=== PATIENT | male | born 1945 | race Caucasian/White ===

== ENCOUNTER → 2016-10-03 | Outpatient (CLI) | payer OTHER ==
[~2016-10-03] MED LIST: ACET-1047 PO; ASPEC81 PO; HEPA1INJ22 IV; HYDR-5688 PO; LEVO100T7 PO; LPT40 PO; LTHSR/300 PO; MRPIS4 IV; MULT-506 PO; NTRSLP4 SL; PLV75 PO; ULT50X PO; ZFRI4 IV; [UNRECOGNIZED DRUG - CODE] IV
[2016-10-03 12:14] LABS: BASO % 0.3 %; BASO ABS # 0.03 K/uL (0-0.2); COMPLETE YES; EOS % 1.8 %; HEMATOCRIT 44.9 % (42-52); IG% 0.1 %; LYMPH ABS # 1.58 K/uL (1.2-3.4); MEAN CELL VOLUME 101.1 fL (80-100); MEAN CORPUSCULAR HEMOGLOBIN 33.1 pg (25-34); MEAN CORPUSCULAR HGB CONC 32.7 g/dl (32-36); MEAN PLATELET VOLUME 10.8 fL (7.4-10.4); MONO % 12.6 %; NEUT % 67.2 %; PLATELET COUNT 284 K/uL (130-400); RED BLOOD COUNT 4.44 M/uL (4.7-6.1)
[2016-10-03 12:39] LABS: BLOOD UREA NITROGEN 14 mg/dl (7-18); CREATININE 0.85 mg/dl (0.60-1.40)
== END | disposition home or self-care (01) ==
LOC: C.LABPVFM 10-02 14:36
PROVIDERS: ATTEND Psychiatry & Neurology Psychiatry
DX: F31.9 Bipolar disorder, unspecified (principal); F33.41 Major depressive disorder, recurrent, in partial remission

== ENCOUNTER 2016-12-12 17:05 | Inpatient (IN) | payer OTHER ==
[~2016-12-12] VITALS: Ht 172.7 cm; Wt 54.2 kg
[~2016-12-12 17:05] MED LIST changes: -ACET-1047 PO; -ASPEC81 PO; -HEPA1INJ22 IV; -HYDR-5688 PO; +HYDROCODONE/ACETAMOPHEN 5/325MG TAB PO PRN; -LEVO100T7 PO; -LPT40 PO; -LTHSR/300 PO; -MRPIS4 IV; -MULT-506 PO; +MoRPHine SULFATE 4 MG/ML 1 ML CARP\\VIAL IV PRN; -NTRSLP4 SL; -PLV75 PO; +TRAMADOL HCL 50 MG TAB PO PRN; -ULT50X PO; -ZFRI4 IV; -[UNRECOGNIZED DRUG - CODE] IV
--- NOTE | 2016-12-12 18:06 | EMERGENCY ROOM VISIT NOTE ---
History Report prepared by Angel: David Saba Under the Supervision of: Dr. Omar Valencia D.O. First contact with patient: 17:45 Chief Complaint: LEG PAIN,LEG INJURY Stated Complaint: BLOOD CLOT, LEFT FOOT- REFERRED History of Present Illness The patient is a 71 year old male who presents to the Emergency Room with complaints of constant left leg and foot pain occurring for the past couple of days. The patient states that he was at [facility], and they state that he has a possible blood clot in his left leg. He states that he did not have a Doppler done. He denies any numbness in his leg, fevers or chills. He states that he has a history of a stent in his left leg. The patient states that he is not on any blood thinners, and he does not have any heart history. The patient states that he quit smoking 7 years ago, and he does not drink. He additionally states that [place] was [place], so he was sitting on a plane and a car for a long time. The patient denies any history of A-fib. Source of History: patient Onset: a couple days ago Position: leg (left), foot (left) Timing: constant Associated Symptoms: No fevers, No chills Review of Systems See HPI for pertinent positives & negatives. A total of 10 systems reviewed and were otherwise negative. Past Medical & Surgical Medical Problems: (1) Pain of left lower extremity due to ischemia Surgical Problems: (1) History of intravascular stent placement Social History Smoking Status: Never Smoker Marital Status: Housing Status: lives with family Occupation Status: retired Current/Historical Medications Scheduled Levothyroxine Sodium (Levothyroxine Sodium), Unknown Dose PO DAILY [place] Carbonate ([place] Carbonate), 300 MG PO QAM [place] Carbonate ([place] Carbonate), 600 MG PO QPM Multivitamin (Multivitamin), 1 TAB PO DAILY Allergies Coded Allergies: No Known Allergies (Unverified , 12/12/16) Physical Exam Vital Signs Date Time Temp Pulse Resp B/P (MAP) Pulse Ox O2 Delivery O2 Flow Rate FiO2 12/12/16 22:50 72 24 12/12/16 22:37 160/77 12/12/16 22:37 65 16 160/77 97 Room Air 12/12/16 22:35 67 24 12/12/16 22:25 68 12/12/16 22:20 64 19 12/12/16 22:05 69 12/12/16 21:50 66 21 12/12/16 21:35 66 26 12/12/16 21:20 64 15 12/12/16 21:05 67 15 12/12/16 20:50 61 19 12/12/16 20:35 54 24 12/12/16 20:20 57 21 12/12/16 20:06 164/75 12/12/16 20:05 59 98 12/12/16 20:00 58 16 164/75 98 Room Air 12/12/16 18:26 59 12/12/16 18:23 153/85 12/12/16 17:10 36.9 70 18 182/76 97 Room Air Physical Exam GENERAL: Patient is awake, alert, and in no acute distress. Patient is resting comfortably and showing no signs of anxiety EYES: The conjunctivae are clear. The pupils are round and reactive. EARS, NOSE, MOUTH AND THROAT: The nose is without any evidence of any deformity. Mucous membranes are moist tongue is midline NECK: The neck is nontender and supple. RESPIRATORY: Normal respiratory effort is noted there is no evidence of wheezing rhonchi or rales CARDIOVASCULAR: Regular rate and rhythm noted there no murmurs rubs or gallops normal S1 normal S2 GASTROINTESTINAL: The abdomen is soft. Bowel sounds are present in all quadrants. Abdomen is nontender MUSCULOSKELETAL/EXTREMITIES: There is no evidence of gross deformity full range of motion is noted in the hips and shoulders SKIN: No edema in the lower extremities. Skin is cool and dry. Appears to be venous engorgements in the left lower extremity. Left great toe is dusky in appearance. Delayed capillary refill. Pulse is diminished but symmetrical in the feet, popliteal fossa, and the groins. NEUROLOGIC: Patient is awake alert and oriented x3 strength is symmetric patellar reflexes are 2+ bilaterally Medical Decision & Procedures ER Provider Diagnostic Interpretation: Radiology results as stated below per my review and radiologist interpretation: LEFT LOWER EXTREMITY ARTERIAL DOPPLER ULTRASOUND CLINICAL HISTORY: Left lower extremity pain. COMPARISON STUDY: No previous studies for comparison. TECHNIQUE: Grayscale and color and duplex Doppler sonography of the arterial system of the left lower extremity was performed. FINDINGS: The right ankle to brachial index measured 0.85 when using the posterior tibial artery and 0.84 when using the dorsalis pedis. The left ankle to brachial index was significantly diminished, measuring 0.28 when using the posterior tibial artery and 0.30 when using the dorsalis pedis. No elevated velocities were identified within the arterial system of the left lower extremity. There was moderate atherosclerotic plaque. There was significantly dampened, monophasic flow within the left common femoral, superficial, popliteal, anterior tibial, posterior tibial, peroneal and dorsalis previous arteries. The vessels were patent. IMPRESSION: 1. Significantly diminished left ankle to brachial index of 0.30. 2. Dampened, monophasic flow throughout the left lower extremity which suggests inflow disease with a more proximal stenosis, likely within the left common iliac or external iliac arteries. 3. Moderate atherosclerotic plaque within the left lower extremity without evidence of a hemodynamically significant stenosis within the left lower extremity. Electronically signed by: Jose Alrfedo David M.D. 12/12/2016 7:59 PM Dictated Date/Time: 12/12/2016 7:56 PM ADDENDUM Addendum: This minimal thrombus is of questionable clinical significance. Electronically signed by: Jose Alfredo David M.D. 12/12/2016 8:03 PM Dictated Date/Time: 12/12/2016 8:02 PM ORIGINAL REPORT LEFT LOWER EXTREMITY VENOUS DOPPLER CLINICAL HISTORY: Left lower extremity pain. COMPARISON STUDY: No previous studies for comparison. TECHNIQUE: Sonography of the deep venous system of the left lower extremity was performed. Compression and augmentation were evaluated. FINDINGS: The common femoral, superficial femoral and popliteal veins were compressible. There was minimal thrombus adherent to a valve within the left femoral vein. Augmentation was normal. Flow was shown within the deep calf vessels. IMPRESSION: Minimal age indeterminate thrombus adherent to a valve within the left femoral vein. No additional sites of deep venous thrombus within the left lower extremity. Electronically signed by: Jose Alfredo David M.D. 12/12/2016 7:51 PM Dictated Date/Time: 12/12/2016 7:49 PM CHEST ONE VIEW PORTABLE CLINICAL HISTORY: Chest pain. COMPARISON STUDY: Chest radiograph May 31, 2014. FINDINGS: Lung volumes are normal. There is no pneumothorax or pleural effusion. Linear left basilar opacity likely reflects atelectasis. There is no evidence for pulmonary edema. No consolidation is present. Cardiomediastinal silhouette is normal. Left hilar prominence is unchanged and likely due to normal vessels. IMPRESSION: No acute cardiopulmonary findings. Electronically signed by: Jose Alfredo David M.D. 12/12/2016 6:16 PM Dictated Date/Time: 12/12/2016 6:15 PM Laboratory Results 12/12/16 18:20 Red Blood Count 4.44, Mean Corpuscular Volume 97.3, Mean Corpuscular Hemoglobin 32.7, Mean Corpuscular Hemoglobin Concent 33.6, Mean Platelet Volume 9.8, Neutrophils (%) (Auto) 64.9, Lymphocytes (%) (Auto) 22.3, Monocytes (%) (Auto) 10.8, Eosinophils (%) (Auto) 1.7, Basophils (%) (Auto) 0.2, Neutrophils # (Auto ) 5.39, Lymphocytes # (Auto) 1.85, Monocytes # (Auto) 0.90, Eosinophils # (Auto ) 0.14, Basophils # (Auto) 0.02 12/12/16 18:20 Test 12/12/16 18:20 12/12/16 18:40 White Blood Count 8.31 K/uL (4.8-10.8) Red Blood Count 4.44 M/uL (4.7-6.1) Hemoglobin 14.5 g/dL (14.0-18.0) Hematocrit 43.2 % (42-52) Mean Corpuscular Volume 97.3 fL (80-100) Mean Corpuscular Hemoglobin 32.7 pg (25-34) Mean Corpuscular Hemoglobin Concent 33.6 g/dl (32-36) Platelet Count 240 K/uL (130-400) Mean Platelet Volume 9.8 fL (7.4-10.4) Neutrophils (%) (Auto) 64.9 % Lymphocytes (%) (Auto) 22.3 % Monocytes (%) (Auto) 10.8 % Eosinophils (%) (Auto) 1.7 % Basophils (%) (Auto) 0.2 % Neutrophils # (Auto) 5.39 K/uL (1.4-6.5) Lymphocytes # (Auto) 1.85 K/uL (1.2-3.4) Monocytes # (Auto) 0.90 K/uL (0.11-0.59) Eosinophils # (Auto) 0.14 K/uL (0-0.5) Basophils # (Auto) 0.02 K/uL (0-0.2) RDW Standard Deviation 48.6 fL (36.4-46.3) RDW Coefficient of Variation 13.6 % (11.5-14.5) Immature Granulocyte % (Auto) 0.1 % Immature Granulocyte # (Auto) 0.01 K/uL (0.00-0.02) Prothrombin Time 10.3 SECONDS (9.0-12.0) Prothromb Time International Ratio 1.0 (0.9-1.1) Activated Partial Thromboplast Time 29.3 SECONDS (21.0-31.0) Partial Thromboplastin Ratio 1.1 Anion Gap 6.0 mmol/L (3-11) Est Creatinine Clear Calc Drug Dose 52.4 ml/min Estimated GFR () 95.3 Estimated GFR (Non- 82.2 BUN/Creatinine Ratio 17.9 (10-20) Calcium Level 8.8 mg/dl (8.5-10.1) Total Bilirubin 0.4 mg/dl (0.2-1) Direct Bilirubin < 0.1 mg/dl (0-0.2) Aspartate Amino Transf (AST/SGOT) 17 U/L (15-37) Alanine Aminotransferase (ALT/SGPT) 23 U/L (12-78) Alkaline Phosphatase 89 U/L (45-117) Total Creatine Kinase 143 U/L (39-308) Creatine Kinase MB 4.1 ng/ml (0.5-3.6) Creatine Kinase MB Ratio 2.9 (0-3.0) Troponin I < 0.015 ng/ml (0-0.045) Total Protein 7.0 gm/dl (6.4-8.2) Albumin 3.9 gm/dl (3.4-5.0) [place] Level 0.6 mMOL/L (0.6-1.2) Laboratory results per my review. Medications Administered Medications (Trade) Dose Ordered Sig/Eduarda Route Start Time Stop Time Status Last Admin Dose Admin Heparin Sodium (Porcine) (Heparin Iv Bolus) 10,000 unit STK-MED ONCE .ROUTE 12/12/16 22:27 12/12/16 22:28 DC 12/12/16 22:33 4,000 UNIT Heparin Sodium/ Dextrose (Heparin 25,000 Unit/500ml D5W) 25,000 unit STK-MED ONCE .ROUTE 12/12/16 22:27 12/12/16 22:28 DC 12/12/16 22:35 25,000 UNIT Aspirin (Aspirin Chew) 324 mg STK-MED ONCE .ROUTE 12/12/16 22:27 12/12/16 22:28 DC 12/12/16 22:31 324 MG ECG Indication: other (leg pain) Rate (beats per minute): 58 Rhythm: sinus bradycardia Findings: no ectopy, other (No ST segment abnormality, prominent U wave noted) Comparison ECG Date: no prior available ED Course 1744: The patient was evaluated in room B3. A complete history and physical examination were performed. 2034: I discussed the patient's case with Dr. Talbot, Thoracic Surgery, and he recommends transferring the patient. 2040: I reevaluated the patient, and he was resting comfortably. 2046: I discussed the patient's case with Dr. Pascual, [facility], and he states that he would accept the patient 2058: I discussed the patient's case with Dr. Zhang, Hospitalist, and he states that he will evaluate the patient for further treatment. Medical Decision Differential diagnosis: Etiologies such as DVT, musculoskeletal, infection, joint effusion, trauma, lymphedema, idiopathic, CHF, as well as others were entertained.. The patient is a 71-year-old male who presented to the emergency apartment at the request of his primary care physician. He was seen by the primary care physician and was sent to the emergency department for darkness to his left great toe. The patient has a history of peripheral vascular disease and was treated with angioplasty of his lower extremity arteries in the past. I discussed the patient's laboratory and radiographic studies with him. I discussed his case with the on-call general surgeon as well as the on-call [facility] hospitalist. The on-call [facility] hospitalist has agreed to evaluate the patient in emergency apartment for further management and disposition. Medication Reconcilliation Current Medication List: was personally reviewed by me Blood Pressure Screening Patient's blood pressure: Elevated blood pressure Blood pressure disposition: Elevated BP felt to be situational Consults Time Called: 2030 Consulting Physician: Dr. Talbot, Thoracic Surgery Returned Call: 2034 I discussed the patient's case with Dr. Talbot, Thoracic Surgery, and he recommends transferring the patient. Additional Consults: Time Called: 2043 Consulted Physician: Dr. Pascual, [facility] Returned Call: 2046 Additional Comments: I discussed the patient's case with Dr. Pascual, [facility], and he states that he would accept the patient Time Called: 2051 Consulted Physician: Dr. Zhang, Hospitalist Returned Call: 2058 Additional Comments: I discussed the patient's case with Dr. Zhang, Hospitalist, and he states that he will evaluate the patient for further treatment. Impression Primary Impression: Severe arterial insufficiency of left lower extremity Additional Impression: Left leg pain Scribe Attestation The scribe's documentation has been prepared under my direction and personally reviewed by me in its entirety. I confirm that the note above accurately reflects all work, treatment, procedures, and medical decision making performed by me. Departure Information Dispostion Being Evaluated By Hospitalist Referrals Olesya Tang, C.R.N.P (PCP) Patient Instructions My [facility] Problem Qualifiers
[2016-12-12] MEDS ORDERED: MULT-506 PO (18:07)
[2016-12-12] MEDS ORDERED: LTHSR/300 PO ×2 (18:07)
[2016-12-12] MEDS ORDERED: LEVO100T7 PO (18:07)
--- NOTE | 2016-12-12 18:18 | DIAGNOSTIC IMAGING REPORT ---
CHEST ONE VIEW PORTABLE CLINICAL HISTORY: Chest pain. COMPARISON STUDY: Chest radiograph May 31, 2014. FINDINGS: Lung volumes are normal. There is no pneumothorax or pleural effusion. Linear left basilar opacity likely reflects atelectasis. There is no evidence for pulmonary edema. No consolidation is present. Cardiomediastinal silhouette is normal. Left hilar prominence is unchanged and likely due to normal vessels. IMPRESSION: No acute cardiopulmonary findings. Electronically signed by: Jose Alfredo David M.D. 12/12/2016 6:16 PM Dictated Date/Time: 12/12/2016 6:15 PM
[2016-12-12 18:34] LABS: BASO % 0.2 %; BASO ABS # 0.02 K/uL (0-0.2); COMPLETE YES; EOS % 1.7 %; HEMATOCRIT 43.2 % (42-52); IG% 0.1 %; LYMPH % 22.3 %; LYMPH ABS # 1.85 K/uL (1.2-3.4); MEAN CELL VOLUME 97.3 fL (80-100); MEAN CORPUSCULAR HEMOGLOBIN 32.7 pg (25-34); MEAN CORPUSCULAR HGB CONC 33.6 g/dl (32-36); MEAN PLATELET VOLUME 9.8 fL (7.4-10.4); MONO % 10.8 %; NEUT % 64.9 %; PLATELET COUNT 240 K/uL (130-400); RED BLOOD COUNT 4.44 M/uL (4.7-6.1); WHITE BLOOD COUNT 8.31 K/uL (4.8-10.8)
[2016-12-12 18:48] LABS: PARTIAL THROMBOPLASTIN RATIO 1.1; PROTHROMBIN TIME (PATIENT) 10.3 SECONDS (9.0-12.0)
[2016-12-12 18:51] LABS: ALT/SGPT 23 U/L (12-78); AST/SGOT 17 U/L (15-37); BLOOD UREA NITROGEN 17 mg/dl (7-18); BUN/CREATININE RATIO 17.9 (10-20); CALCIUM 8.8 mg/dl (8.5-10.1); CARBON DIOXIDE 23 mmol/L (21-32); CHLORIDE 110 mmol/L (98-107); CREATININE 0.92 mg/dl (0.60-1.40); GLUCOSE 100 mg/dl (70-99); POTASSIUM 3.9 mmol/L (3.5-5.1); SODIUM 139 mmol/L (136-145)
[2016-12-12 18:56] LABS: ALKALINE PHOSPHATASE 89 U/L (45-117); CKMB/CK RATIO 2.9 (0-3.0)
--- NOTE | 2016-12-12 19:53 | DIAGNOSTIC IMAGING REPORT ---
ADDENDUM Addendum: This minimal thrombus is of questionable clinical significance. Electronically signed by: Jose Alfredo David M.D. 12/12/2016 8:03 PM Dictated Date/Time: 12/12/2016 8:02 PM ORIGINAL REPORT LEFT LOWER EXTREMITY VENOUS DOPPLER CLINICAL HISTORY: Left lower extremity pain. COMPARISON STUDY: No previous studies for comparison. TECHNIQUE: Sonography of the deep venous system of the left lower extremity was performed. Compression and augmentation were evaluated. FINDINGS: The common femoral, superficial femoral and popliteal veins were compressible. There was minimal thrombus adherent to a valve within the left femoral vein. Augmentation was normal. Flow was shown within the deep calf vessels. IMPRESSION: Minimal age indeterminate thrombus adherent to a valve within the left femoral vein. No additional sites of deep venous thrombus within the left lower extremity. Electronically signed by: Jose Alfredo David M.D. 12/12/2016 7:51 PM Dictated Date/Time: 12/12/2016 7:49 PM
--- NOTE | 2016-12-12 20:00 | DIAGNOSTIC IMAGING REPORT ---
LEFT LOWER EXTREMITY ARTERIAL DOPPLER ULTRASOUND CLINICAL HISTORY: Left lower extremity pain. COMPARISON STUDY: No previous studies for comparison. TECHNIQUE: Grayscale and color and duplex Doppler sonography of the arterial system of the left lower extremity was performed. FINDINGS: The right ankle to brachial index measured 0.85 when using the posterior tibial artery and 0.84 when using the dorsalis pedis. The left ankle to brachial index was significantly diminished, measuring 0.28 when using the posterior tibial artery and 0.30 when using the dorsalis pedis. No elevated velocities were identified within the arterial system of the left lower extremity. There was moderate atherosclerotic plaque. There was significantly dampened, monophasic flow within the left common femoral, superficial, popliteal, anterior tibial, posterior tibial, peroneal and dorsalis previous arteries. The vessels were patent. IMPRESSION: 1. Significantly diminished left ankle to brachial index of 0.30. 2. Dampened, monophasic flow throughout the left lower extremity which suggests inflow disease with a more proximal stenosis, likely within the left common iliac or external iliac arteries. 3. Moderate atherosclerotic plaque within the left lower extremity without evidence of a hemodynamically significant stenosis within the left lower extremity. Electronically signed by: Jose Alfredo David M.D. 12/12/2016 7:59 PM Dictated Date/Time: 12/12/2016 7:56 PM
[2016-12-12] MEDS ORDERED: ASPIRIN 81 MG CHEW PO STA (21:59)
[2016-12-12] MEDS ORDERED: ONDANSETRON INJ 2 MG/ML 2 ML VIAL IV PRN (22:00)
[2016-12-12] MEDS ORDERED: NITROGLYCERIN 0.4 MG SL PER TAB CHARGE SL PRN (22:00)
[2016-12-12] MEDS ORDERED: ACETAMINOPHEN 325 MG TAB PO PRN (22:00)
--- NOTE | 2016-12-12 22:03 | History and Physical ---
History & Physical Date & Time of Service: Dec 12, 2016 at 22:02 Chief Complaint: Blood Clot, Left Foot- Referred Primary Care Physician: Olesya Tang C.R.N.P History of Present Illness Source: patient, family The patient is a 71-year-old male who is referred to the emergency department by his [facility] physician office after presenting there with left leg and foot pain for the past few days with their concern regarding a possible blood clot in his left leg. He has had a history of a femoropopliteal bypass, and a stent in his left leg. He reports that his leg primarily bothers him if he tries to lift it or walk on it. He is not on any antiplatelet agents such as aspirin or blood thinners such as warfarin. [place] did [place]. He has no sick exposures. He has not noticed any change in temperature or color. Past Medical/Surgical History Peripheral arterial disease Hypothyroidism Bipolar disorder History of left lower extremity arterial stent. Tobacco use history Left leg pain. Family History Noncontributory Social History Smoking Status: Former Smoker (quit 7 years ago.) Smokeless Tobacco Use: No Alcohol Use: none Drug Use: none Marital Status: Housing status: lives with family Occupational Status: retired Immunizations History of Influenza Vaccine: Yes History of Tetanus Vaccine?: Yes History of Pneumococcal: Unknown History of Hepatitis B Vaccine: Unknown Multi-Drug Resistant Organisms History of MDRO: No Allergies Coded Allergies: No Known Allergies (Unverified , 12/12/16) Home Medications Scheduled Aspirin (Aspirin EC Low Dose), 81 MG PO QAM Atorvastatin (Atorvastatin Calcium), 80 MG PO QAM Clopidogrel Bisulfate (Clopidogrel), 75 MG PO QAM Heparin Sodium (Porcine) (Heparin Sodium), 1 DROP IV UD Levothyroxine Sodium (Levothyroxine Sodium), Unknown Dose PO DAILY [place] Carbonate ([place] Carbonate), 300 MG PO QAM [place] Carbonate ([place] Carbonate), 600 MG PO QPM Multivitamin (Multivitamin), 1 TAB PO DAILY Scheduled PRN Acetaminophen (Mapap), 650 MG PO Q4H PRN for very mild Pain or Fever Hydrocodone/Acetaminophen 5MG/325MG ([place] 5MG/325MG), 1 TAB PO Q6H PRN for mod Pain Ioversol (Optiray 320), 111 ML IV UD PRN for Interaction Checking Morphine Sulfate (Morphine Sulfate), 4 MG IV Q2H PRN for severe Pain Nitroglycerin (Nitrostat), 0.4 MG SL UD PRN for Chest Pain Ondansetron (Ondansetron Hcl), 4 MG IV Q6H PRN for Nausea Tramadol HCl (Tramadol HCl), 50 MG PO Q4H PRN for mild Pain Review of Systems The patient denies chest pain, palpitations, shortness of breath, cough, lower extremity swelling, sore throat, fevers, chills, sweats, weight change, fatigue , nausea, vomiting, abdominal pain, pelvic pain, blood in urine or stool, dysuria, urinary frequency or urgency, lightheadedness, dizziness, headache, memory loss, rash, abnormal bruising or bleeding, imbalance, focal or generalized weakness, numbness or tingling in arms, generalized arthralgias or myalgias, back or neck pain, night sweats, or allergy symptoms. The review of systems is otherwise negative other than for that already noted above, and at least 10 systems have been reviewed. Physical Exam Vital Signs Date Time Temp Pulse Resp B/P (MAP) Pulse Ox O2 Delivery O2 Flow Rate FiO2 12/12/16 20:00 58 16 164/75 98 Room Air 12/12/16 18:26 59 12/12/16 17:10 36.9 70 18 182/76 97 Room Air The patient is awake, well-developed and adequately nourished, alert and oriented 3, normocephalic and atraumatic, lying in bed and in no acute distress. HEENT--PERRL, EOMI, mucous membranes and oropharynx normal. Neck--supple, no JVD or bruits, thyroid normal, trachea midline, no adenopathy. Heart--normal S1 and S2, no extra beats, no murmurs, rubs or gallops. Lungs--clear bilaterally with good air movement, no respiratory distress, no accessory muscle use. Abdomen--normal bowel sounds and soft, nontender and nondistended, no hernias or masses, no organomegaly. Extremities--no cyanosis, clubbing or edema. There are there are diminished but palpable pulses bilaterally, right more easily palpable than left. Dermatologic--normal skin turgor, normal color, left foot minimally cooler compared to right, no abnormal lymph nodes, no rash. Neurologic--cranial nerves II through XII grossly intact, motor and sensory examination normal. Rheumatologic--normal range of motion, nontender, muscles and joints. Psychiatric--normal affect. Diagnostics Laboratory Results Results Past 24 Hours Test 12/12/16 18:20 12/12/16 18:40 Range/Units White Blood Count 8.31 4.8-10.8 K/uL Red Blood Count 4.44 4.7-6.1 M/uL Hemoglobin 14.5 14.0-18.0 g/dL Hematocrit 43.2 42-52 % Mean Corpuscular Volume 97.3 80-100 fL Mean Corpuscular Hemoglobin 32.7 25-34 pg Mean Corpuscular Hemoglobin Concent 33.6 32-36 g/dl Platelet Count 240 130-400 K/uL Mean Platelet Volume 9.8 7.4-10.4 fL Neutrophils (%) (Auto) 64.9 % Lymphocytes (%) (Auto) 22.3 % Monocytes (%) (Auto) 10.8 % Eosinophils (%) (Auto) 1.7 % Basophils (%) (Auto) 0.2 % Neutrophils # (Auto) 5.39 1.4-6.5 K/uL Lymphocytes # (Auto) 1.85 1.2-3.4 K/uL Monocytes # (Auto) 0.90 0.11-0.59 K/uL Eosinophils # (Auto) 0.14 0-0.5 K/uL Basophils # (Auto) 0.02 0-0.2 K/uL RDW Standard Deviation 48.6 36.4-46.3 fL RDW Coefficient of Variation 13.6 11.5-14.5 % Immature Granulocyte % (Auto) 0.1 % Immature Granulocyte # (Auto) 0.01 0.00-0.02 K/uL Prothrombin Time 10.3 9.0-12.0 SECONDS Prothromb Time International Ratio 1.0 0.9-1.1 Activated Partial Thromboplast Time 29.3 21.0-31.0 SECONDS Partial Thromboplastin Ratio 1.1 Sodium Level 139 136-145 mmol/L Potassium Level 3.9 3.5-5.1 mmol/L Chloride Level 110 98-107 mmol/L Carbon Dioxide Level 23 21-32 mmol/L Anion Gap 6.0 3-11 mmol/L Blood Urea Nitrogen 17 7-18 mg/dl Creatinine 0.92 0.60-1.40 mg/dl Est Creatinine Clear Calc Drug Dose 52.4 ml/min Estimated GFR () 95.3 Estimated GFR (Non- 82.2 BUN/Creatinine Ratio 17.9 10-20 Random Glucose 100 70-99 mg/dl Calcium Level 8.8 8.5-10.1 mg/dl Total Bilirubin 0.4 0.2-1 mg/dl Direct Bilirubin < 0.1 0-0.2 mg/dl Aspartate Amino Transf (AST/SGOT) 17 15-37 U/L Alanine Aminotransferase (ALT/SGPT) 23 12-78 U/L Alkaline Phosphatase 89 45-117 U/L Total Creatine Kinase 143 39-308 U/L Creatine Kinase MB 4.1 0.5-3.6 ng/ml Creatine Kinase MB Ratio 2.9 0-3.0 Troponin I < 0.015 0-0.045 ng/ml Total Protein 7.0 6.4-8.2 gm/dl Albumin 3.9 3.4-5.0 gm/dl [place] Level 0.6 0.6-1.2 mMOL/L Diagnostic Radiology Patient Name: ELEUTERIO CAMPBELL Unit Number: [id number] Dictated: 12/12/161955 Transcribed: 12/12/161955 MARK Printed Date/Time: [~ rep prt dt]/[~ rep prt tm] [~ rep ct labl] - [~ rep ct ivnm] [facility] [place] [address] Dictated: 12/12/161955 Transcribed: 12/12/161955 MARK Printed Date/Time: [~ rep prt dt]/[~ rep prt tm] [~ rep ct labl] - [~ rep ct ivnm] LEFT LOWER EXTREMITY ARTERIAL DOPPLER ULTRASOUND CLINICAL HISTORY: Left lower extremity pain. COMPARISON STUDY: No previous studies for comparison. TECHNIQUE: Grayscale and color and duplex Doppler sonography of the arterial system of the left lower extremity was performed. FINDINGS: The right ankle to brachial index measured 0.85 when using the posterior tibial artery and 0.84 when using the dorsalis pedis. The left ankle to brachial index was significantly diminished, measuring 0.28 when using the posterior tibial artery and 0.30 when using the dorsalis pedis. No elevated velocities were identified within the arterial system of the left lower extremity. There was moderate atherosclerotic plaque. There was significantly dampened, monophasic flow within the left common femoral, superficial, popliteal, anterior tibial, posterior tibial, peroneal and dorsalis previous arteries. The vessels were patent. IMPRESSION: 1. Significantly diminished left ankle to brachial index of 0.30. 2. Dampened, monophasic flow throughout the left lower extremity which suggests inflow disease with a more proximal stenosis, likely within the left common iliac or external iliac arteries. 3. Moderate atherosclerotic plaque within the left lower extremity without evidence of a hemodynamically significant stenosis within the left lower extremity. Electronically signed by: Jose Alfredo David M.D. 12/12/2016 7:59 PM Dictated Date/Time: 12/12/2016 7:56 PM The status of this report is Signed. Draft = Not yet reviewed or approved by Radiologist. Signed = Reviewed and approved by Radiologist. <AttendingPhy></AttendingPhy> <FamilyPhy>Olesya Tang C.R.N.P</FamilyPhy> < PrimaryPhy>Olesya Tang C.R.N.P</PrimaryPhy> <UnitNumber>[id number]</ UnitNumber> <VisitNumber>[id number]</VisitNumber> <PatientName>ELEUTERIO CAMPBELL</ PatientName> <DateOfBirth>1945</DateOfBirth> <Location>[facility]</Location> < ServiceDate>12/12/16</ServiceDate> <MNE>ESINDI</MNE> <OrderingPhy>Omar Valencia D.O.</OrderingPhy> <OrderingPhyMNE>f rep ord dr kaur</OrderingPhyMNE> <DictatingPhyMNE>f rep dict dr kaur</DictatingPhyMNE> <CCListMNE>f rep ct vincent</ CCListMNE> <AdmittingPhyMNE>f pt admit dr kaur</AdmittingPhyMNE> <AttendingPhyMNE >f pt attend dr kaur</AttendingPhyMNE> <ConsultingPhyMNE>f pt consult dr kaur</ConsultingPhyMNE> <FamilyPhyMNE>f pt fam dr kaur</FamilyPhyMNE> <OtherPhyMNE>f pt other dr kaur</OtherPhyMNE> < PrimaryPhyMNE>f pt prim care dr kaur</PrimaryPhyMNE> <ReferringPhyMNE>f pt referring dr kaur</ReferringPhyMNE> Patient Name: ELEUTERIO CAMPBELL Unit Number: [id number] Dictated: 12/12/162001 Transcribed: 12/12/162001 JA Printed Date/Time: [~ rep prt dt]/[~ rep prt tm] [~ rep ct labl] - [~ rep ct ivnm] [facility] Radiology Department [place] [id number] Dictated: 12/12/162001 Transcribed: 12/12/162001 JA Printed Date/Time: [~ rep prt dt]/[~ rep prt tm] [~ rep ct labl] - [~ rep ct ivnm] ADDENDUM Addendum: This minimal thrombus is of questionable clinical significance. Electronically signed by: Jose Alfredo David M.D. 12/12/2016 8:03 PM Dictated Date/Time: 12/12/2016 8:02 PM ORIGINAL REPORT LEFT LOWER EXTREMITY VENOUS DOPPLER CLINICAL HISTORY: Left lower extremity pain. COMPARISON STUDY: No previous studies for comparison. TECHNIQUE: Sonography of the deep venous system of the left lower extremity was performed. Compression and augmentation were evaluated. FINDINGS: The common femoral, superficial femoral and popliteal veins were compressible. There was minimal thrombus adherent to a valve within the left femoral vein. Augmentation was normal. Flow was shown within the deep calf vessels. IMPRESSION: Minimal age indeterminate thrombus adherent to a valve within the left femoral vein. No additional sites of deep venous thrombus within the left lower extremity. Electronically signed by: Jose Alfredo David M.D. 12/12/2016 7:51 PM Dictated Date/Time: 12/12/2016 7:49 PM The status of this report is Signed. Draft = Not yet reviewed or approved by Radiologist. Signed = Reviewed and approved by Radiologist. <AttendingPhy></AttendingPhy> <FamilyPhy>Clyde,Olesya, C.R.N.P</FamilyPhy> < PrimaryPhy>Olesya Tang C.R.N.P</PrimaryPhy> <UnitNumber>[id number]</ UnitNumber> <VisitNumber>[id number]</VisitNumber> <PatientName>ELEUTERIO CAMPBELL</ PatientName> <DateOfBirth>1945</DateOfBirth> <Location>[facility]</Location> < ServiceDate>12/12/16</ServiceDate> <MNE>ESINDI</MNE> <OrderingPhy>Omar Valencia D.O.</OrderingPhy> <OrderingPhyMNE>f rep ord dr kaur</OrderingPhyMNE> <DictatingPhyMNE>f rep dict dr kaur</DictatingPhyMNE> <CCListMNE>f rep ct mne</ CCListMNE> <AdmittingPhyMNE>f pt admit dr kaur</AdmittingPhyMNE> <AttendingPhyMNE >f pt attend dr kaur</AttendingPhyMNE> <ConsultingPhyMNE>f pt consult dr kaur</ConsultingPhyMNE> <FamilyPhyMNE>f pt fam dr kaur</FamilyPhyMNE> <OtherPhyMNE>f pt other dr kaur</OtherPhyMNE> < PrimaryPhyMNE>f pt prim care dr kaur</PrimaryPhyMNE> <ReferringPhyMNE>f pt referring dr kaur</ReferringPhyMNE> Patient Name: ELEUTERIO CAMPBELL Unit Number: [id number] Dictated: 12/12/161814 Transcribed: 12/12/161814 Printed Date/Time: [~ rep prt dt]/[~ rep prt tm] [~ rep ct labl] - [~ rep ct ivnm] [facility] [place] [address] Dictated: 12/12/161814 Transcribed: 12/12/161814 Printed Date/Time: [~ rep prt dt]/[~ rep prt tm] [~ rep ct labl] - [~ rep ct ivnm] CHEST ONE VIEW PORTABLE CLINICAL HISTORY: Chest pain. COMPARISON STUDY: Chest radiograph May 31, 2014. FINDINGS: Lung volumes are normal. There is no pneumothorax or pleural effusion. Linear left basilar opacity likely reflects atelectasis. There is no evidence for pulmonary edema. No consolidation is present. Cardiomediastinal silhouette is normal. Left hilar prominence is unchanged and likely due to normal vessels. IMPRESSION: No acute cardiopulmonary findings. Electronically signed by: Jose Alfredo David M.D. 12/12/2016 6:16 PM Dictated Date/Time: 12/12/2016 6:15 PM The status of this report is Signed. Draft = Not yet reviewed or approved by Radiologist. Signed = Reviewed and approved by Radiologist. <AttendingPhy></AttendingPhy> <FamilyPhy>Oelsya Tang C.R.N.P</FamilyPhy> < PrimaryPhy>Olesya Tang C.R.N.P</PrimaryPhy> <UnitNumber>[id number]</ UnitNumber> <VisitNumber>[id number]</VisitNumber> <PatientName>ELEUTERIO CAMPBELL</ PatientName> <DateOfBirth>1945</DateOfBirth> <Location>[facility]</Location> < ServiceDate>12/12/16</ServiceDate> <MNE>ESINDI</MNE> <OrderingPhy>Omar Valencia D.O.</OrderingPhy> <OrderingPhyMNE>f rep ord dr kaur</OrderingPhyMNE> <DictatingPhyMNE>f rep dict dr kaur</DictatingPhyMNE> <CCListMNE>f rep ct vincent</ CCListMNE> <AdmittingPhyMNE>f pt admit dr kaur</AdmittingPhyMNE> <AttendingPhyMNE >f pt attend dr kaur</AttendingPhyMNE> <ConsultingPhyMNE>f pt consult dr kaur</ConsultingPhyMNE> <FamilyPhyMNE>f pt fam dr kaur</FamilyPhyMNE> <OtherPhyMNE>f pt other dr kaur</OtherPhyMNE> < PrimaryPhyMNE>f pt prim care dr kaur</PrimaryPhyMNE> <ReferringPhyMNE>f pt referring dr kaur</ReferringPhyMNE> EKG EKG shows sinus bradycardia at 58 bpm, incomplete right bundle-branch block, no acute ST-T changes. Impression Assessment and Plan Peripheral arterial disease/status post femoropopliteal bypass -- Status post left femoral artery stent/TOMASA is 0.3 on arterial Doppler, with suggestion of decreased inflow from either the common iliac or external iliac vessels. High grade stenosis left external iliac artery with tapering to 50% narrowing of left common femoral artery/ multiple right common iliac and external iliac arterial stenoses up to 50%/ right femoral artery with multiple stenoses up to 50%- Questionable minimal thrombus on a left femoral vein valve The patient will be admitted to the telemetry unit. Give aspirin 324 mg by mouth now chewable, and 81 mg chewable every morning. Start heparin drip IV standard dose with bolus to not exceed 5000 units. Check a fasting lipid profile and hemoglobin A1c. Consults vascular surgery/interventional cardiology. Hypothyroidism--need to verify his levothyroxine dosing. Check a TSH. Bipolar disorder--continue lithium carbonate 300 mg by mouth every morning and 600 mg by mouth every evening. Level of Care Telemetry Advanced Directives Existing Advance Directive: No Existing Living Will: No Existing Power of Direct Marketing Manager: No Resuscitation Status FULL RESUSCITATION VTE Prophylaxis VTE Risk Assessment Done? Y/N: Yes Risk Level: High Given or contraindicated: Other Anticoagulation (therapeutic heparin IV standard dose with bolus per protocol.)
[2016-12-12] MEDS ORDERED: HEPARIN 25000 UNIT/500 ML D5W ONE (22:27)
[2016-12-12] MEDS ORDERED: ASPIRIN 324 MG CHEW ONE (22:27)
[2016-12-12] MEDS ORDERED: HEPARIN SOD (PORCINE) 1000 UNIT/ML 10 ML VIAL ONE (22:27)
[2016-12-12] MEDS ORDERED: OPTIRAY 320 IV PRN (22:30)
[2016-12-12] MEDS ORDERED: HEPARIN 25000 UNIT/ D5W 500 ML (PHARMACY PREPARED) IV PRN ×2 (23:30)
[2016-12-13 00:58] VITALS: BP 162/71; PULSE 52; TEMP 36.5; O2SAT 95; Ht 172.7 cm; Wt 54.2 kg
[2016-12-13] MEDS: NSS + 20MEQ KCL 1000ML 1,000 ML IV SCH ×2 (01:30→14:36)
[2016-12-13 04:13] VITALS: BP 142/66; PULSE 54; TEMP 37.1; O2SAT 95
[2016-12-13 05:13] LABS: BASO % 0.2 %; BASO ABS # 0.02 K/uL (0-0.2); COMPLETE YES; EOS % 2.8 %; IG% 0.2 %; LYMPH % 21.5 %; LYMPH ABS # 1.87 K/uL (1.2-3.4); MEAN CELL VOLUME 97.1 fL (80-100); MEAN CORPUSCULAR HEMOGLOBIN 32.3 pg (25-34); MEAN CORPUSCULAR HGB CONC 33.3 g/dl (32-36); MONO % 12.1 %; NEUT % 63.2 %; PLATELET COUNT 230 K/uL (130-400); RED BLOOD COUNT 4.12 M/uL (4.7-6.1); WHITE BLOOD COUNT 8.71 K/uL (4.8-10.8)
[2016-12-13 05:32] LABS: PARTIAL THROMBOPLASTIN RATIO 1.9; PROTHROMBIN TIME (PATIENT) 10.7 SECONDS (9.0-12.0)
[2016-12-13 05:39] LABS: BUN/CREATININE RATIO 16.5 (10-20); CALCIUM 8.2 mg/dl (8.5-10.1); CREATININE 0.83 mg/dl (0.60-1.40); MAGNESIUM 2.1 mg/dl (1.8-2.4); POTASSIUM 3.9 mmol/L (3.5-5.1)
[2016-12-13 05:50] LABS: CHOLESTEROL/HDL RATIO 4.3; THYROID STIMULATING HORMONE 4.63 uIu/ml (0.300-4.500)
[2016-12-13 06:48] LABS: ESTIMATED AVERAGE GLUCOSE 111 mg/dl; HA1C FLAG Normal (Normal)
[2016-12-13 07:18] VITALS: BP 148/64; PULSE 52; TEMP 37.4; O2SAT 95
--- NOTE | 2016-12-13 07:44 | DIAGNOSTIC IMAGING REPORT ---
CT ANGIOGRAM OF THE ABDOMEN AND PELVIS WITH BILATERAL LOWER EXTREMITY RUNOFF CLINICAL HISTORY: Peripheral arterial disease. Left foot pain. COMPARISON STUDY: Left lower extremity arterial ultrasound dated 12/12/2016. TECHNIQUE: Following the IV administration of 120 cc of Optiray 320, CT angiogram of the abdomen and pelvis with bilateral lower externally runoff was performed from the lung bases to the feet. Images are reviewed in the axial, sagittal, and coronal planes. 3-D MIPS images are created and assessed. IV contrast was administered without complication. A dose lowering technique was utilized adhering to the principles of ALARA. The examination is degraded by motion artifact. CT DOSE: 792.24 mGy.cm FINDINGS: Lower chest: The heart is mildly enlarged and without pericardial effusion. Advanced emphysema is present the lung bases. Bibasilar atelectasis is noted, left greater than right. No pleural effusion is seen. Liver: The contrast-enhanced liver is normal in size, contour, and attenuation. There is no intrahepatic or ductal dilatation. The hepatic portal veins are patent. Gallbladder: Unremarkable. Spleen: Normal in size and attenuation noting heterogeneous arterial phase enhancement. Pancreas: Moderately atrophic and grossly unremarkable. Adrenal glands: Unremarkable. Kidneys: The contrast since kidneys demonstrate mild cortical atrophy and are without hydronephrosis. The kidneys enhance symmetrically. Abdominal aorta and iliac arteries: There is advanced atherosclerotic calcification and irregularity of the abdominal aorta. No abdominal aortic aneurysm is seen and there is no aortic dissection. A stent is present within the left common iliac artery. The stent appears patent noting intraluminal plaque. There is complete thrombosis of the left external iliac artery which originates at the iliac bifurcation. There is reconstitution in the left common femoral artery seen on axial image #303. There is thready flow within the left internal iliac artery. The right common iliac artery is patent with less than 50% luminal narrowing secondary to soft plaque. The right internal arteries patent noting diffuse atherosclerotic plaque and irregularity. There is focal thrombosis at the origin of the right internal iliac artery. The remainder of the right internal iliac artery is patent. Major branches of the abdominal aorta: The celiac trunk, superior mesenteric, and inferior mesenteric arteries are widely patent. Hepatic arterial anatomy is conventional. The splenic artery is patent. The main renal arteries are widely patent bilaterally. There is an accessory left renal artery on the left located inferiorly on axial image #137. There is at least moderate stenosis at the origin of this accessory vessel. Right lower extremity runoff: There is advanced atherosclerotic plaque and irregularity seen throughout the arteries of the right lower extremity. There is less than 50% luminal narrowing seen throughout the right common femoral artery secondary soft plaque. There is mild ectasia of the distal common femoral artery which measures up to 9 mm. The right profunda femoris artery is patent. The superficial femoral artery is patent. There is greater than 50% stenosis seen focally within the mid to distal right superficial femoral artery on axial image #635. There is approximately 75% stenosis within the distal right superficial femoral artery seen on axial image #660. The popliteal artery is patent. The calf arteries are diminutive. There is 3-vessel runoff to the foot. There is focal high-grade stenosis with near complete occlusion of the proximal anterior tibial artery seen on axial image #876. The dorsalis pedis artery is patent. Left lower extremity runoff: There is advanced atherosclerotic plaque and irregularity seen throughout the arteries of the left lower extremity. There is less than 50% narrowing throughout the right common femoral artery secondary to soft plaque. The left profunda femoris artery is patent. The left superficial femoral artery is diminutive but patent, as is the left popliteal artery. There is 2-vessel runoff to the left foot. The anterior tibial and posterior tibial arteries are patent to the foot. The dorsalis pedis artery is patent. There is thrombosis of the mid to distal peroneal artery, which originates on axial image #959. Bowel: There is a bowel containing right inguinal hernia. No bowel obstruction is seen. There is advanced colonic diverticulosis without CT evidence of acute diverticulitis. Moderate constipation is observed and there is Rectosigmoid fecal impaction. The appendix is well-visualized and normal. Peritoneum: There is no intraperitoneal free air or abdominal ascites. Lymphadenopathy: None. Pelvic viscera: The prostate gland is enlarged and heterogeneous, measuring 5.6 cm in transverse diameter. The bladder is normal as visualized. Skeletal structures: The skeletal structures are osteopenic. No lytic or blastic bony lesions are seen. There is moderate lumbosacral spondylosis. Lower extremity soft tissues: No significant abnormality is identified. IMPRESSION: 1. Cardiomegaly and advanced emphysema. 2. Advanced peripheral vascular disease. 3. There is a stent within the left common iliac artery which appears patent. 4. There is complete thrombosis of the left external iliac artery with reconstitution in the left common femoral artery. 5. There is 2-vessel runoff to the left foot, with complete occlusion of the mid to distal left peroneal artery. 6. There are foci of approximately 50% stenosis within the mid to distal right superficial femoral artery and approximately 75% stenosis within the distal right superficial femoral artery. 7. There is 3-vessel runoff to the right foot, noting focal high-grade stenosis with near complete occlusion of the proximal right anterior tibial artery. 8. There is at least moderate stenosis at the origin of the accessory left renal artery. 9. Moderate constipation with rectosigmoid fecal impaction. 10. Advanced colonic diverticulosis without CT evidence of acute diverticulitis. 11. There is a bowel containing right inguinal hernia. No bowel obstruction is seen. 12. Prostatomegaly. 13. See above for detailed findings. Electronically signed by: Bossman Mcdaniel M.D. 12/13/2016 7:43 AM Dictated Date/Time: 12/13/2016 7:23 AM
[2016-12-13] MEDS ORDERED: MULTIVITAMIN TAB PO SCH (09:00)
[2016-12-13] MEDS ORDERED: ASPIRIN 81 MG ECTAB PO SCH (09:00)
[2016-12-13] MEDS ORDERED: LITHIUM CARBONATE 300 MG TAB PO SCH ×2 (09:00→21:00)
--- NOTE | 2016-12-13 10:20 | Medical Student: [facility] ---
Med Student Progress Note Date of Service Dec 13, 2016. Subjective Pt evaluation today including: conversation w/ patient, physical exam, chart review, lab review, review of studies, review of inpatient medication list Pain: left leg pain PO Intake: NPO, 1298ml Voiding: no voiding problems, no incontinence Timo Weiss is a 71 yo male, with PMHx of PVD and stent in proximal left external iliac artery, presents with sudden onset constant left left and foot pain that started yesterday at 11am when mowing the grass. Patient states that for the last 2-3 months he is only able to walk for approximately 10 minutes before he has to stop and rest for 5-10 minutes, secondary to his left leg hurting him. He reports having relief of pain when flexing his left knee and waiting for the pain to subside. Patient notes a recent travel [place] that included a 6 hour car ride and multiple flights. Patient reports only associated symptom of a "wet" cough, similar to the cough he had when he was a smoker; he reports quitting smoking 7 years ago. Patient denies nay history of heart disease, atrial fibrillation, blood thinning medications, fever/chills, or numbness. Review of Systems Constitutional: No fever, No chills Eyes: No worsening of vision, No redness ENT: No hearing loss, No nasal symptoms, No sore throat Respiratory: + cough, No shortness of breath Cardiac: No chest pain, No edema Abdomen: No pain, No nausea, No vomiting, No diarrhea, No constipation Musculoskeletal: No joint pain, No muscle pain Male : No dysuria, No urinary frequency, No incontinence Neurologic: No memory loss, No numbness/tingling Skin: No rash, No itch Objective Vital Signs Date Time Temp Pulse Resp B/P (MAP) Pulse Ox O2 Delivery O2 Flow Rate FiO2 12/13/16 08:00 Room Air 12/13/16 07:18 37.4 52 16 148/64 (92) 95 Room Air 12/13/16 04:13 37.1 54 18 142/66 (91) 95 Room Air 12/13/16 04:00 Room Air 12/13/16 00:58 36.5 52 20 162/71 95 Room Air 12/13/16 00:10 55 26 96 12/13/16 00:01 126/61 12/12/16 23:55 58 19 94 12/12/16 23:40 58 18 96 12/12/16 23:31 136/63 12/12/16 23:25 66 22 96 12/12/16 23:18 161/90 12/12/16 22:50 72 24 12/12/16 22:37 160/77 12/12/16 22:37 65 16 160/77 97 Room Air 12/12/16 22:35 67 24 12/12/16 22:25 68 12/12/16 22:20 64 19 12/12/16 22:05 69 12/12/16 21:50 66 21 12/12/16 21:35 66 26 12/12/16 21:20 64 15 12/12/16 21:05 67 15 12/12/16 20:50 61 19 12/12/16 20:35 54 24 12/12/16 20:20 57 21 12/12/16 20:06 164/75 12/12/16 20:05 59 98 12/12/16 20:00 58 16 164/75 98 Room Air 12/12/16 18:26 59 12/12/16 18:23 153/85 12/12/16 17:10 36.9 70 18 182/76 97 Room Air Physical Exam General Appearance: WD/WN, + thin Eyes: bilateral eyes normal inspection, bilateral eyes EOMI ENT: normal ENT inspection, hearing grossly normal Neck: supple Respiratory/Chest: chest non-tender, no respiratory distress, no accessory muscle use, + crackles (left base) Cardiovascular: regular rate, rhythm, no edema, + pertinent finding (decreased pulses left lower extremity) Abdomen: normal bowel sounds, non tender, soft Extremities: normal range of motion, no pedal edema, + slow capillary refill ( left foot), + pertinent finding (intermittent pain) Neurologic/Psychiatric: alert, normal mood/affect Skin: warm/dry, + pertinent finding (dusky appearance to right great toe) Laboratory Results Last 24 Hours Test 12/12/16 18:20 12/12/16 18:40 12/13/16 05:00 White Blood Count 8.31 K/uL 8.71 K/uL Red Blood Count 4.44 M/uL 4.12 M/uL Hemoglobin 14.5 g/dL 13.3 g/dL Hematocrit 43.2 % 40.0 % Mean Corpuscular Volume 97.3 fL 97.1 fL Mean Corpuscular Hemoglobin 32.7 pg 32.3 pg Mean Corpuscular Hemoglobin Concent 33.6 g/dl 33.3 g/dl Platelet Count 240 K/uL 230 K/uL Mean Platelet Volume 9.8 fL 10.0 fL Neutrophils (%) (Auto) 64.9 % 63.2 % Lymphocytes (%) (Auto) 22.3 % 21.5 % Monocytes (%) (Auto) 10.8 % 12.1 % Eosinophils (%) (Auto) 1.7 % 2.8 % Basophils (%) (Auto) 0.2 % 0.2 % Neutrophils # (Auto) 5.39 K/uL 5.51 K/uL Lymphocytes # (Auto) 1.85 K/uL 1.87 K/uL Monocytes # (Auto) 0.90 K/uL 1.05 K/uL Eosinophils # (Auto) 0.14 K/uL 0.24 K/uL Basophils # (Auto) 0.02 K/uL 0.02 K/uL RDW Standard Deviation 48.6 fL 48.6 fL RDW Coefficient of Variation 13.6 % 13.5 % Immature Granulocyte % (Auto) 0.1 % 0.2 % Immature Granulocyte # (Auto) 0.01 K/uL 0.02 K/uL Prothrombin Time 10.3 SECONDS 10.7 SECONDS Prothromb Time International Ratio 1.0 1.0 Activated Partial Thromboplast Time 29.3 SECONDS 50.3 SECONDS Partial Thromboplastin Ratio 1.1 1.9 Sodium Level 139 mmol/L 142 mmol/L Potassium Level 3.9 mmol/L 3.9 mmol/L Chloride Level 110 mmol/L 113 mmol/L Carbon Dioxide Level 23 mmol/L 23 mmol/L Anion Gap 6.0 mmol/L 6.0 mmol/L Blood Urea Nitrogen 17 mg/dl 14 mg/dl Creatinine 0.92 mg/dl 0.83 mg/dl Est Creatinine Clear Calc Drug Dose 52.4 ml/min 60.8 ml/min Estimated GFR () 95.3 101.2 Estimated GFR (Non- 82.2 87.3 BUN/Creatinine Ratio 17.9 16.5 Random Glucose 100 mg/dl 93 mg/dl Calcium Level 8.8 mg/dl 8.2 mg/dl Total Bilirubin 0.4 mg/dl Direct Bilirubin < 0.1 mg/dl Aspartate Amino Transf (AST/SGOT) 17 U/L Alanine Aminotransferase (ALT/SGPT) 23 U/L Alkaline Phosphatase 89 U/L Total Creatine Kinase 143 U/L Creatine Kinase MB 4.1 ng/ml Creatine Kinase MB Ratio 2.9 Troponin I < 0.015 ng/ml Total Protein 7.0 gm/dl Albumin 3.9 gm/dl [place] Level 0.6 mMOL/L Estimated Average Glucose 111 mg/dl Hemoglobin A1c 5.5 % Magnesium Level 2.1 mg/dl Triglycerides Level 84 mg/dl Cholesterol Level 196 mg/dl HDL Cholesterol 46 mg/dl LDL Cholesterol, Calculated 133 mg/dl VLDL Cholesterol, Calculated 17 mg/dl Cholesterol/HDL Ratio 4.3 Thyroid Stimulating Hormone (TSH) 4.630 uIu/ml Medications Medications Administered Medications (Trade) Dose Ordered Sig/Eduarda Route Start Time Stop Time Status Last Admin Dose Admin Potassium Chloride/Sodium Chloride 1,000 ml @ 75 mls/hr [id number] IV 12/13/16 01:08 12/13/16 16:18 DC 12/13/16 14:36 75 MLS/HR Acetaminophen (Tylenol Tab) 650 mg Q4H PRN PO 12/12/16 22:00 12/13/16 16:18 DC 12/13/16 14:07 650 MG Ondansetron HCl (Zofran Inj) 4 mg Q6H PRN IV 12/12/16 22:00 12/13/16 16:18 DC 12/13/16 15:58 4 MG Acetaminophen/ Hydrocodone Bitart ([place] 5/325 Tab) 1 tab Q6H PRN PO 12/12/16 03:30 12/13/16 16:18 DC 12/13/16 11:57 1 TAB Morphine Sulfate (MoRPHine SULFATE INJ) 4 mg Q2H PRN IV 12/12/16 03:30 12/13/16 16:18 DC 12/13/16 15:58 4 MG Multivitamins (Multivitamin Tab) 1 tab DAILY PO 12/13/16 09:00 12/13/16 16:18 DC 12/13/16 08:26 1 TAB [place] Carbonate ([place] Carbonate Tab) 300 mg QAM PO 12/13/16 09:00 12/13/16 16:18 DC 12/13/16 08:26 300 MG Aspirin (Ecotrin Tab) 81 mg QAM PO 12/13/16 09:00 12/13/16 13:49 DC 12/13/16 08:26 81 MG Heparin Sodium (Porcine) (Heparin Iv Bolus) 10,000 unit STK-MED ONCE .ROUTE 12/12/16 22:27 12/12/16 22:28 DC 12/12/16 22:33 4,000 UNIT Heparin Sodium/ Dextrose (Heparin 25,000 Unit/500ml D5W) 25,000 unit STK-MED ONCE .ROUTE 12/12/16 22:27 12/12/16 22:28 DC 12/12/16 22:35 25,000 UNIT Aspirin (Aspirin Chew) 324 mg STK-MED ONCE .ROUTE 12/12/16 22:27 12/12/16 22:28 DC 12/12/16 22:31 324 MG Clopidogrel Bisulfate (plAVix TAB) 75 mg NOW ONCE PO 12/13/16 14:00 12/13/16 14:01 DC 12/13/16 14:30 75 MG Atorvastatin Calcium (Lipitor Tab) 80 mg ONE ONCE PO 12/13/16 14:00 12/13/16 14:01 DC 12/13/16 14:30 80 MG Assessment and Plan Assessment and Plan: Timo Weiss is a 71 yo male, with PMHx of PVD and stent in proximal external iliac artery of left leg, who presented with sudden onset left foot/leg pain. Arterial Doppler and CTA of abdomen/pelvis confirmed diminished blood flow to left lower extremity. Vascular surgery was consulted and patient will be transferred to [facility] for surgery. Plan: 1) PVD - Arterial Doppler study to look at blood flow of left lower extremity. Findings: 1. Significantly diminished left ankle to brachial index of 0.30. 2. Dampened, monophasic flow throughout the left lower extremity which suggests inflow disease with a more proximal stenosis, likely within the left common iliac or external iliac arteries. 3. Moderate atherosclerotic plaque within the left lower extremity without evidence of a hemodynamically significant stenosis within the left lower extremity. Addendum: This minimal thrombus is of questionable clinical significance. - Venous Doppler study to look at blood return from left lower extremity. Findings: IMPRESSION: Minimal age indeterminate thrombus adherent to a valve within the left femoral vein. No additional sites of deep venous thrombus within the left lower extremity. - CTA of abdomen/pelvis to look at extent of stenosis. PVD related findings: 1. Advanced peripheral vascular disease. 2. There is a stent within the left common iliac artery which appears patent. 3. There is complete thrombosis of the left external iliac artery with reconstitution in the left common femoral artery. 4. There is 2-vessel runoff to the left foot, with complete occlusion of the mid to distal left peroneal artery. 5. There are foci of approximately 50 % stenosis within the mid to distal right superficial femoral artery and approximately 75% stenosis within the distal right superficial femoral artery. 6. There is 3-vessel runoff to the right foot, noting focal high-grade stenosis with near complete occlusion of the proximal right anterior tibial artery. 7. There is at least moderate stenosis at the origin of the accessory left renal artery. Other findings: 1. Cardiomegaly and advanced emphysema. 2. Moderate constipation with rectosigmoid fecal impaction. 3. Advanced colonic diverticulosis without CT evidence of acute diverticulitis. 4. There is a bowel containing right inguinal hernia. No bowel obstruction is seen. 5. Prostatomegaly. - CXR to assess if there are any current acute cardiopulmonary findings. Findings: No acute cardiopulmonary findings. - Heparin drip (bolus, do not exceed 5000 units) - Aspirin 324mg first dose then 81mg each morning and Plavix 75mg for anti- platelet therapy - Atorvastatin 80mg for plaque maintenance - Pain management with morphine sulfate 4mg Q2H IV PRN and acetaminophen 650mg Q4H PO PRN - Nausea management with Ondansetron HCl 4mg Q6H IV PRN - Maintenance fluids (NS 75mls/hr) - Neurovascular checks of lower extremities every 2 hours by nursing - Transfer to [facility] for vascular surgery once bed is available. 2) Bipolar, chronic - Continue home medications ([place] 300mg QAM PO) 3) Hypothyroidism, chronic - Continue home medication of Levothyroxine. Work with patient/PCP to figure out home dosing. Discharge planning: acute transfer (transfer to [place] for vascular surgery)
--- NOTE | 2016-12-13 10:49 | SURGICAL CONSULTATION ---
DATE OF CONSULTATION: 12/12/2016 DATE OF CONSULTATION: 12/12/2016 at approximately 10:30 at night. SUMMARY: I was called by Dr. Valencia regarding Mr. Weiss who had a 2-day history of bluish toe with some pain. He had had a previous history of endovascular stent placement. The patient was having a moderate amount of pain in that area. I was read the arteriogram results. I recommended to Dr. Valencia strongly that the patient be transferred to a tertiary center, namely [facility] for the possibility of endovascular evaluation and therapy. He agreed to that transfer. Unfortunately there is no endovascular vascular surgeon available at [facility] at this time. LEDY
[2016-12-13 11:58] VITALS: BP 171/90; TEMP 36.4; O2SAT 96
[2016-12-13] MEDS ORDERED: ATORVASTATIN 40 MG TAB PO ONE (14:00)
[2016-12-13] MEDS ORDERED: CLOPIDOGREL BISULFATE 75 MG TAB PO ONE (14:00)
[2016-12-13] MEDS ORDERED: PLV75 PO (15:23)
[2016-12-13] MEDS ORDERED: LPT40 PO (15:23)
[2016-12-13] MEDS ORDERED: ASPEC81 PO (15:23)
[2016-12-13] MEDS ORDERED: ACET-1047 PO (15:23)
[2016-12-13] MEDS ORDERED: MRPIS4 IV (15:23)
[2016-12-13] MEDS ORDERED: NTRSLP4 SL (15:23)
[2016-12-13] MEDS ORDERED: HYDR-5688 PO (15:23)
[2016-12-13] MEDS ORDERED: [UNRECOGNIZED DRUG - CODE] IV (15:23)
[2016-12-13] MEDS ORDERED: ZFRI4 IV (15:23)
[2016-12-13] MEDS ORDERED: HEPA1INJ22 IV (15:23)
[2016-12-13] MEDS ORDERED: ULT50X PO (15:23)
--- NOTE | 2016-12-13 15:25 | Discharge Instructions ---
Discharge Instructions Date of Service Dec 13, 2016. Admission Reason for Admission: History Of Intravascular Stent Placement, Pain Of Discharge Discharge Diagnosis / Problem: PVD w/rest pain Discharge Goals Goal(s): Decrease discomfort, Therapeutic intervention Activity Recommendations Activity Level: Bedrest . Additional Information Patient informed of condition: Yes Advance Directives: No DNR: No Level of Care: Other Communicable Disease: No Prognosis: Other Current Hospital Diet Patient's current hospital diet: Discharge Diet Recommended Diet: N/A Pending Studies Studies pending at discharge: no Laboratory Results Hemoglobin A1c Test 12/13/16 05:00 Range/Units Estimated Average Glucose 111 mg/dl Hemoglobin A1c 5.5 4.5-5.6 % Lipid Panel Test 12/13/16 05:00 Range/Units Triglycerides Level 84 0-150 mg/dl Cholesterol Level 196 0-200 mg/dl HDL Cholesterol 46 mg/dl Cholesterol/HDL Ratio 4.3 LDL Cholesterol, Calculated 133 mg/dl Medical Emergencies . Who to Call and When: Medical Emergencies: If at any time you feel your situation is an emergency, please call 911 immediately. . Non-Emergent Contact Non-Emergency issues call your: Primary Care Provider . . "Provider Documentation" section prepared by Darrin Milan. . Core Measure Problem Core Measures: None
[2016-12-13 15:28] VITALS: BP 126/67; PULSE 49; TEMP 36.7; O2SAT 94
--- NOTE | 2016-12-13 15:43 | Discharge Summary ---
Discharge Summary Date of Service Dec 13, 2016. (Darrin Milan M.D.) Discharge Summary Admission Date: Dec 12, 2016 at 22:02 Discharge Date: Dec 13, 2016 Discharge Disposition: Acute care facility Principal Diagnosis: Peripheral Vascular Disease w/rest pain Immunizations: Have You Had Influenza Vaccine: Yes History of Tetanus Vaccine?: Yes History of Pneumococcal: Unknown History of Hepatitis B Vaccine: Unknown (Darrin Milan M.D.) Medication Reconciliation New Medications: Heparin Sodium (Porcine) (Heparin Sodium) 5,000 Unit/Ml Inj 1 DROP IV UD, #1 Continue heparin drip as running on inpatient orders Acetaminophen (Mapap) 325 Mg Tab 650 MG PO Q4H PRN for very mild Pain or Fever, #1 TAB Aspirin (Aspirin EC Low Dose) 81 Mg Ectab 81 MG PO QAM, #1 Atorvastatin (Atorvastatin Calcium) 40 Mg Tab 80 MG PO QAM, #1 TAB Clopidogrel Bisulfate (Clopidogrel) 75 Mg Tab 75 MG PO QAM, #1 TAB Hydrocodone/Acetaminophen 5MG/325MG ([place] 5MG/325MG) Tab 1 TAB PO Q6H PRN for mod Pain, #1 TAB PRN PAIN Ioversol (Optiray 320) 68 % Inj 111 ML IV UD PRN for Interaction Checking, #1 Morphine Sulfate (Morphine Sulfate) 4 Mg/Ml Inj 4 MG IV Q2H PRN for severe Pain, #1 Nitroglycerin (Nitrostat) 0.4 Mg/1 Tab Subl 0.4 MG SL UD PRN for Chest Pain, #1 Ondansetron (Ondansetron Hcl) 2 Mg/Ml Inj 4 MG IV Q6H PRN for Nausea, #1 Tramadol HCl (Tramadol HCl) 50 Mg Tab 50 MG PO Q4H PRN for mild Pain, #1 TAB Continued Medications: Levothyroxine Sodium (Levothyroxine Sodium) Unknown Strength Tab Unknown Dose PO DAILY for 90 Days, TAB 3 Refills [place] Carbonate ([place] Carbonate) 300 Mg Cap 300 MG PO QAM, CAP [place] Carbonate ([place] Carbonate) 300 Mg Cap 600 MG PO QPM, CAP Multivitamin (Multivitamin) Tab 1 TAB PO DAILY, TAB Discharge Exam Mr. Weiss is a 71 year old man who complains of 8/10 pain in his left leg that is worse in his foot. He reports that the pain is constant, and that he has noticed that his left foot is more pale and cool than his other foot. He denies chest pain, SOB, palpitations. Review of Systems: Constitutional: No fever, No chills, No sweats, No weight loss Respiratory: No cough, No sputum, No wheezing, No shortness of breath Cardiovascular: + claudication, No chest pain, No orthopnea, No PND, No edema Physical Exam: General Appearance: WD/WN, no apparent distress Neck: supple Respiratory/Chest: chest non-tender, lungs clear, normal breath sounds, no respiratory distress, no accessory muscle use Cardiovascular: regular rate, rhythm, no edema, no gallop, no JVD, no murmur , + abnormal peripheral pulses (diminished dorsalis pedis, posterior tibial pulses in L leg) Abdomen / GI: normal bowel sounds, non tender, soft, no organomegaly, no pulsatile mass Extremities: no pedal edema, + slow capillary refill (slow cap refill in left foot), + pertinent finding (left leg appears more pale than right leg - also more cool to touch) (Darrin Milan M.D.) Hospital Course Mr. Weiss is a 71 year old man with a PMH of PVD, hypothyroidism and bipolar disorder who presented with a 3 month history of intermittent claudication in his left thigh that has progressed to 8/10 rest pain in his foot. He previously had a fem-pop bypass in the same leg in [place] in 2011. Prior to his admission , he was not on any antiplatelet agents or blood thinners. Currently, his TOMASA in his left leg is 0.[address] results showed: 1) There is 2-vessel runoff to the left foot, with complete occlusion of the mid to distal left peroneal artery. 2) There are foci of approximately 50% stenosis within the mid to distal right superficial femoral artery and approximately 75% stenosis within the distal right superficial femoral artery. 3) There is 3-vessel runoff to the right foot, noting focal high-grade stenosis with near complete occlusion of the proximal right anterior tibial artery. We started him on a heparin drip, aspirin, plavix, atorvastatin and prescribed morphine prn for pain management. Our thoracic surgeon, Dr. Talbot recommended transfer for surgical treatment, as unfortunately, our vascular surgeon is away and cannot perform the intervention necessary. Total Time Spent: Less than 30 minutes This includes examination of the patient, discharge planning, medication reconciliation, and communication with other providers. (Darrin Milan M.D.) Resident Physician Supervision Note: I interviewed and examined the patient. Discussed with Dr. Milan and agree with findings and plan as documented in the note. Any exceptions or clarifications are listed here: None Documented By: Grzegorz Ott leg pain foot pain at rest. worse w ambulation. nothing has progressed from last night though and pain reasonably well controlled vitals noted nad breathng unlabored no pallor or icterus. L foot faint but (+) pulse, delayed cap refill slowest big toe but present, nontender to palp on foot /toes. PVD w rest claudication - not acute occlusion, but appears to need intervention due to rest pain, worse w walking. d/w vascular in [facility] stable for transfer Total Time Spent: Greater than 30 minutes (Grzegorz Ott, D.O.) Discharge Instructions Please refer to the electronic Patient Visit Report (Discharge Instructions) for additional information. (Darrin Milan M.D.) Resident Tracking Resident Involvement: Resident Care Provided Care Provided: Adult [facility] (Darrin Milan M.D.)
[2016-12-14] MEDS ORDERED: ASPIRIN 81 MG ECTAB PO SCH (09:00)
[2016-12-14] MEDS ORDERED: ATORVASTATIN 40 MG TAB PO SCH (09:00)
[2016-12-14] MEDS ORDERED: CLOPIDOGREL BISULFATE 75 MG TAB PO SCH (09:00)
== END 2016-12-13 16:17 | disposition short-term general hospital (02) | DRG 301 ==
LOC: C.EDB 17:07 → C.2T 22:02 → ENRESERV 22:44
PROVIDERS: ADMIT Hospitalist; ATTEND Hospitalist
DX: I70.322 Atherosclerosis of unspecified type of bypass graft(s) of the extremities with rest pain, left leg (principal); E03.9 Hypothyroidism, unspecified; F31.9 Bipolar disorder, unspecified; Z87.891 Personal history of nicotine dependence; Z95.820 Peripheral vascular angioplasty status with implants and grafts; Z79.899 Other long term (current) drug therapy

== ENCOUNTER 2022-04-10 11:28 | Inpatient (IN) ==
[2022-04-10] MEDS ORDERED: SODIUM CHLORIDE 0.9% 1000ML 1,000 ML IV STA (11:54)
[2022-04-10] MEDS ORDERED: dilTIAZem HCl 5 MG/ML 5 ML VIAL IV STA (12:00)
[2022-04-10] MEDS ORDERED: dilTIAZem HCL 125 MG in DEXTROSE 5% 100 ML IV SCH (12:00)
[2022-04-10] MEDS ORDERED: STAT IV Infusion **Titration per Protocol STA (12:00)
--- NOTE | 2022-04-10 12:05 | Emergency Department Note ---
Impression & Plan Non-ST elevation [place] (NSTEMI), CHF (congestive heart failure), Atrial fibrillation with rapid ventricular response, TAMIR (acute kidney injury), COVID- 19 ED Provider Note HISTORY OF PRESENT ILLNESS: Patient is a 76-year-old male presenting with general malaise. Patient reports he has been feeling generally unwell with decreased oral intake for the last week or so. He went to his outpatient providers clinic today to be evaluated and an EKG at the clinic found him to be in atrial fibrillation with a heart rate of 150. Patient does not have any history of atrial fibrillation. Denies any chest pain. He reports he always has palpitations that become more intense with exertion. Denies any lightheadedness or dizziness. Denies any significant nausea or vomiting. Reports that in the last 4 days he has been feeling more weak than normal. He was also quite short of breath today, prompting the visit to the PCP. He denies any chest pain. Reportedly at the doctor's office he was found to be hypotensive 80s over 50s and tachycardic to the 150s. EMS was called and patient was transferred to the emergency department for further evaluation. Patient denies any recent changes in medications. Denies any recent fevers or exposure to sick contacts. Significant PMH: PAD (s/p stent in RLE); bipolar 1 disorder; HTN; COPD ROS: Constitutional: No fever, chills +weakness Skin: No rash or diaphoresis HENT: No headaches or congestion Eyes: No vision changes Cardio: No chest pain, leg swelling +palpitations Respiratory: No cough, wheezing +shortness of breath GI: No nausea, vomiting, diarrhea, constipation : No dysuria, polyuria MSK: No joint or back pain Neuro: No loss of sensation, confusion, focal deficits, numbness, tingling Psychiatric: No mood changes PHYSICAL EXAM: Constitutional: Patient appears in no acute distress. HENT: Head: Normocephalic and atraumatic. Eyes: EOMI, PERRL Mouth/Throat: Mucous membranes moist. Neck: Trachea midline. Neck supple. Cardiovascular: Tachycardic with irregularly irregularly rhythm. no murmurs, rubs or gallops. Intact distal pulses. Pulmonary/Chest: No respiratory distress. Breath sounds clear and equal bilaterally. No wheezes or rales. Abdominal: BS +. Abdomen soft, no tenderness, rebound or guarding. Back: No midline spinal tenderness, no paraspinal tenderness, no CVA tenderness. Musculoskeletal: No edema, tenderness or deformity noted. Skin: Warm and dry. No rash, erythema, pallor or cyanosis Psychiatric: Appropriate mood and affect for situation. Neurological: Alert and keenly responsive. CN II-XII grossly intact, moving all extremities equally and fully. MDM: - Vitals signs showed tachycardia. - EKG showed atrial fibrillation with RVR. - IV access obtained and patient ordered 1 L normal saline bolus as well as a 10 mg IV Cardizem bolus. - After cardizem bolus, patient's HR dropped to 57 and he converted to NSR. Repeat EKG shows T wave inversions and slight ST depressions in leads II, III, aVF. - Laboratory workup showed normal WBC; stable hemoglobin; TAMIR (Cr 1.56 - base line from 2018 around 1.1); elevated troponin (93.4); elevated BNP (227) - CXR negative for acute cardiopulmonary pathology. - Consulted [facility] hand binder stripper, Dr. Renee. He agreed with admission for further cardiac workup. He compared EKG to prior from 2020, which shows that ST depressions are more pronounced today. He will come evaluate patient. - Patient did test positive for COVID today. - Hospitalist consulted for admission. - Patient admitted to hospitalist service for further evaluation and management. ASSESSMENT AND PLAN: Diagnosis: generalized weakness; TAMIR; NSTEMI; CHF; Afib with RVR; COVID-19 infection Plan: admit Past Med/Surg History Social History Smoking Status: Former smoker Tobacco Type: Cigarettes Feels Safe at Home: Yes Allergies Allergies Allergy/AdvReac Type Severity Reaction Status Date / Time No Known Allergies Allergy Unverified 12/12/16 18:03 Home Meds Home Medications Medication Instructions Recorded Confirmed ASPIRIN (ASPIRIN EC) 81 mg PO QAM ##0 10/17/17 ATORVASTATIN (LIPITOR) 40 mg PO QPM #0 tabs 10/17/17 Albuterol Sulfate (Proventil Hfa) 2 puff inhalation Q4H PRN 10/17/17 SOB/Wheezing ##0 Clopidogrel (Plavix) 75 mg PO QAM #0 tabs 10/17/17 LEVOTHYROXINE SODIUM 112 mcg PO QAM #0 tabs 05/31/18 Lisinopril (Zestril) 10 mg PO QPM #0 tabs 10/17/17 [place] Carbonate ([place] 300 mg PO QAM #0 tabs 10/17/17 Carbonate ER) [place] Carbonate ([place] 600 mg PO QPM #0 tabs 10/17/17 Carbonate ER) Results & Data (ED) Vital Signs Vital Signs - 24 hr 04/10/22 11:19 04/10/22 11:38 04/10/22 11:38 Temperature 36.6 C Temperature Source Oral Pulse Rate 120 H Pulse Rate from SpO2 Sensor Pulse Rhythm Regular Pulse Strength Normal Respiratory Rate 18 Respiratory Effort / Characteristics Non-Labored Non-Labored Accessory Muscle Use Respiratory Depth Normal Normal Respiratory Pattern Regular Regular Blood Pressure 141/78 H Blood Pressure [Right Arm] Blood Pressure Mean 99 Blood Pressure Mean [Right Arm] Blood Pressure Position Lying Pulse Oximetry 99 99 Oxygen Delivery Method Room Air Room Air Room Air Sepsis Recent Fever Within 48 Hours No Sepsis New/Unexplained Change in Mental Status N/A Sepsis Action Taken by Nursing No Action Required 04/10/22 11:38 04/10/22 11:54 04/10/22 11:40 Temperature Temperature Source Pulse Rate 116 H 113 H Pulse Rate from SpO2 Sensor Pulse Rhythm Regular Pulse Strength Respiratory Rate 20 18 Respiratory Effort / Characteristics Non-Labored Respiratory Depth Normal Respiratory Pattern Regular Blood Pressure Blood Pressure [Right Arm] 141/86 H Blood Pressure Mean Blood Pressure Mean [Right Arm] 104 Blood Pressure Position Pulse Oximetry 99 95 Oxygen Delivery Method Room Air Room Air Sepsis Recent Fever Within 48 Hours Sepsis New/Unexplained Change in Mental Status Sepsis Action Taken by Nursing 04/10/22 11:45 04/10/22 12:00 04/10/22 12:01 Temperature Temperature Source Pulse Rate 122 H 110 H Pulse Rate from SpO2 Sensor 131 H Pulse Rhythm Pulse Strength Respiratory Rate 26 H 25 H Respiratory Effort / Characteristics Respiratory Depth Respiratory Pattern Blood Pressure 107/65 Blood Pressure [Right Arm] Blood Pressure Mean 79 Blood Pressure Mean [Right Arm] Blood Pressure Position Pulse Oximetry 78 L Oxygen Delivery Method Sepsis Recent Fever Within 48 Hours Sepsis New/Unexplained Change in Mental Status Sepsis Action Taken by Nursing 04/10/22 12:01 04/10/22 12:15 04/10/22 12:21 Temperature Temperature Source Pulse Rate 122 H 72 Pulse Rate from SpO2 Sensor 193 H 116 H Pulse Rhythm Pulse Strength Respiratory Rate 22 20 Respiratory Effort / Characteristics Respiratory Depth Respiratory Pattern Blood Pressure 114/62 Blood Pressure [Right Arm] Blood Pressure Mean 79 Blood Pressure Mean [Right Arm] Blood Pressure Position Pulse Oximetry 94 95 Oxygen Delivery Method Sepsis Recent Fever Within 48 Hours Sepsis New/Unexplained Change in Mental Status Sepsis Action Taken by Nursing 04/10/22 12:21 Temperature Temperature Source Pulse Rate 57 L Pulse Rate from SpO2 Sensor 58 L Pulse Rhythm Pulse Strength Respiratory Rate 23 Respiratory Effort / Characteristics Respiratory Depth Respiratory Pattern Blood Pressure Blood Pressure [Right Arm] Blood Pressure Mean Blood Pressure Mean [Right Arm] Blood Pressure Position Pulse Oximetry 97 Oxygen Delivery Method Sepsis Recent Fever Within 48 Hours Sepsis New/Unexplained Change in Mental Status Sepsis Action Taken by Nursing Laboratory Data Result diagrams: 04/10/22 11:58 04/10/22 11:58 Lab Results 04/10/22 04/10/22 04/10/22 Range/Units 11:58 11:58 12:21 WBC 4.50 L (4.8-10.8) K/ul RBC 4.21 L (4.63-6.08) M/uL Hgb 13.6 L (14.0-18.0) g/dl Hct 40.4 (40.1-51.0) % MCV 96.0 (80.0-100.0) fL MCH 32.3 (25.0-34.0) pg MCHC 33.7 (32.0-36.0) g/dL RDW Std Deviation 48.1 H (36.4-46.3) fL RDW Coeff of Elliott 13.4 (11.5-14.5) % Plt Count 167 (130-400) K/uL MPV 10.7 (9.4-12.4) fL Immature Gran % (Auto) 0.2 % Neut % (Auto) 73.6 % Lymph % (Auto) 10.2 % [place] % (Auto) 15.8 % Eos % (Auto) 0.0 % Baso % (Auto) 0.2 % Neut # (Auto) 3.31 (1.4-6.5) K/uL Lymph # (Auto) 0.46 L (1.2-3.4) K/uL [place] # (Auto) 0.71 (0.24-0.82) K/uL Eos # (Auto) 0.00 (0-0.50) K/uL Baso # (Auto) 0.01 (0-0.2) K/uL Immature Gran # (Auto) 0.01 (0.00-0.02) K/uL Sodium 138 (136-145) mmol/L Potassium 4.1 (3.5-5.1) mmol/L Chloride 107 (98-107) mmol/L Carbon Dioxide 23 (21-32) mmol/L Anion Gap 8 (3-11) BUN 38 H (6-23) mg/dl Creatinine 1.56 H (0.6-1.4) mg/dl Est Cr Clr Drug Dosing 25.7 ml/min Est GFR ( Amer) 48.6 ml/min Est GFR (Non-Af Amer) 41.9 ml/min BUN/Creatinine Ratio 24.4 H (10-20) Glucose 109 H (70-99(Fasting)) mg/dl Calcium 8.6 (8.5-10.1) mg/dl Magnesium 2.0 (1.7-2.4) mg/dl Total Bilirubin 0.4 (0.2-1.0) mg/dl AST 32 (13-39) U/L ALT 19 (7-52) U/L Alkaline Phosphatase 78 (34-104) U/L Troponin I High Sens 93.4 H* (0-20) pg/ml B-Natriuretic Peptide 227 H (0-100) pg/ml Total Protein 6.1 (6.0-8.3) gm/dl Albumin 3.7 (3.4-5.0) gm/dl Globulin 2.4 L (2.5-4.0) gm/dl Albumin/Globulin Ratio 1.5 (0.9-2) Lipase 35 (11-82) U/L SARS-CoV-2 (PCR) (Negative) Influenza Type A (PCR) (Neg) Influenza Type B (PCR) (Neg) RSV (RT-PCR) (Neg) 04/10/22 Range/Units 12:21 WBC (4.8-10.8) K/ul RBC (4.63-6.08) M/uL Hgb (14.0-18.0) g/dl Hct (40.1-51.0) % MCV (80.0-100.0) fL MCH (25.0-34.0) pg MCHC (32.0-36.0) g/dL RDW Std Deviation (36.4-46.3) fL RDW Coeff of Elliott (11.5-14.5) % Plt Count (130-400) K/uL MPV (9.4-12.4) fL Immature Gran % (Auto) % Neut % (Auto) % Lymph % (Auto) % [place] % (Auto) % Eos % (Auto) % Baso % (Auto) % Neut # (Auto) (1.4-6.5) K/uL Lymph # (Auto) (1.2-3.4) K/uL [place] # (Auto) (0.24-0.82) K/uL Eos # (Auto) (0-0.50) K/uL Baso # (Auto) (0-0.2) K/uL Immature Gran # (Auto) (0.00-0.02) K/uL Sodium (136-145) mmol/L Potassium (3.5-5.1) mmol/L Chloride (98-107) mmol/L Carbon Dioxide (21-32) mmol/L Anion Gap (3-11) BUN (6-23) mg/dl Creatinine (0.6-1.4) mg/dl Est Cr Clr Drug Dosing ml/min Est GFR ( Amer) ml/min Est GFR (Non-Af Amer) ml/min BUN/Creatinine Ratio (10-20) Glucose (70-99(Fasting)) mg/dl Calcium (8.5-10.1) mg/dl Magnesium (1.7-2.4) mg/dl Total Bilirubin (0.2-1.0) mg/dl AST (13-39) U/L ALT (7-52) U/L Alkaline Phosphatase (34-104) U/L Troponin I High Sens (0-20) pg/ml B-Natriuretic Peptide (0-100) pg/ml Total Protein (6.0-8.3) gm/dl Albumin (3.4-5.0) gm/dl Globulin (2.5-4.0) gm/dl Albumin/Globulin Ratio (0.9-2) Lipase (11-82) U/L SARS-CoV-2 (PCR) POSITIVE A* (Negative) Influenza Type A (PCR) Negative (Neg) Influenza Type B (PCR) Negative (Neg) RSV (RT-PCR) Negative (Neg) Administered Medications Diltiazem HCl 125 mg/ Dextrose 125 mls @ 5 mls/hr IV .Q24H [facility]; Protocol Stop: 05/10/22 11:59 Last Titration: 04/10/22 12:37 Dose: 0 mg/hr, 0 mls/hr Documented By: SATISH Co-signed By: DAFNE Admin: 04/10/22 12:17 Dose: 5 mg/hr, 5 mls/hr Documented By: DAFNE Co-signed By: SATISH Discontinued Medications Aspirin (Aspirin Chew 324 Mg) 324 mg PO NOW STA Stop: 04/10/22 13:01 Last Admin: 04/10/22 13:13 Dose: 324 mg Documented By: SATISH Diltiazem HCl (Diltiazem Hcl 5 Mg/Ml 5 Ml Vial) 10 mg IV NOW STA Stop: 04/10/22 12:01 Last Admin: 04/10/22 12:17 Dose: 10 mg Documented By: DAFNE Co-signed By: SATISH Sodium Chloride (Nss 1000ml) 1,000 mls @ 999 mls/hr IV .Q1H1M STA Stop: 04/10/22 12:54 Last Admin: 04/10/22 12:18 Dose: 999 mls/hr Documented By: DAFNE Miscellaneous (Stat Iv Infusion Titration Per Protocol) 1 each N/A NOW STA Stop: 04/10/22 12:01 Last Admin: 04/10/22 12:37 Dose: Not Given Documented By: SATISH Imaging Data Radiologist's Impression: Chest X-Ray 04/10/22 11:54 XR chest 1V portable HISTORY: 76 years-old Male Chest Pain acute chest pain COMPARISON: Chest radiograph 12/12/2016 TECHNIQUE: AP view of the chest FINDINGS: Cardiomediastinal and hilar silhouettes are within normal limits. Atherosclerosis of the thoracic aorta. Mild hyperinflation. No pneumothorax, pleural effusion, airspace consolidation or overt pulmonary edema. Bones of the chest appear grossly intact. IMPRESSION: No acute process. ACT 112: Negative or not required by law. The above report was generated using voice recognition software. It may contain grammatical, syntax or spelling errors. Electronically signed by: Duncan Barajas M.D. 04/10/2022 12:40 PM Discharge Plan Visit Data Chief Complaint: Shortness of Breath/Dyspnea Stated Complaint: WEAKNESS, SOB, CARDIAC ASSESSMENT ED Provider: Rachna Gama Discharge Problem: Non-ST elevation [place] (NSTEMI), CHF (congestive heart failure), Atrial fibri llation with rapid ventricular response, TAMIR (acute kidney injury), COVID-19 Forms Stand Alone Forms: My [facility] [place] [employer] Prescriptions Prescriptions: No Action ASPIRIN (ASPIRIN EC) 81 MG tablet 81 mg PO QAM Qty: 0 ATORVASTATIN (LIPITOR) 40 MG tablet 40 mg PO QPM Qty: 0 Label Comments: TAKE THIS MEDICATION WITH EVENING MEAL Albuterol Sulfate (Proventil Hfa) 108 MCG/ACT AER 2 puff Inhalation Q4H PRN (Reason: SOB/Wheezing) Qty: 0 Clopidogrel (Plavix) 75 MG tablet 75 mg PO QAM Qty: 0 LEVOTHYROXINE SODIUM 112 MCG tablet 112 mcg PO QAM Qty: 0 Label Comments: TAKE THIS MEDICATION 30 MINUTES BEFORE BREAKFAST OR ANY OTHER MEDICATIONS Lisinopril (Zestril) 10 MG tablet 10 mg PO QPM Qty: 0 Label Comments: TAKE THIS MEDICATION WITH EVENING MEAL [place] Carbonate ([place] Carbonate ER) 300 MG tablet 600 mg PO QPM Qty: 0 [place] Carbonate ([place] Carbonate ER) 300 MG tablet 300 mg PO QAM Qty: 0 Referrals Referrals: Francisco Javier Vargas MD [Primary Care Provider] -
[2022-04-10 12:22] LABS: Basophils # (auto) 0.01 K/uL (0-0.2); Basophils % (auto) 0.2 %; Hematocrit (blood only) 40.4 % (40.1-51.0); Hemoglobin 13.6 g/dl (14.0-18.0); Immature Granulocytes # (auto) 0.01 K/uL (0.00-0.02); Immature Granulocytes % (auto) 0.2 %; Lymphocytes # (auto) 0.46 K/uL (1.2-3.4); Lymphocytes % (auto) 10.2 %; Mean Corpuscular Hemoglobin 32.3 pg (25.0-34.0); Mean Corpuscular Hgb Conc 33.7 g/dL (32.0-36.0); Mean Platelet Volume 10.7 fL (9.4-12.4); Monocytes # (auto) 0.71 K/uL (0.24-0.82); Monocytes % (auto) 15.8 %; Neutrophils # (auto) 3.31 K/uL (1.4-6.5); Neutrophils % (auto) 73.6 %; Platelet Count 167 K/uL (130-400); RDW Coefficient of Variation 13.4 % (11.5-14.5); RDW Standard Deviation 48.1 fL (36.4-46.3); Red Blood Count 4.21 M/uL (4.63-6.08)
[2022-04-10 12:40] LABS: Albumin Globulin Ratio 1.5 (0.9-2); Albumin Level 3.7 gm/dl (3.4-5.0); BUN Creatinine Ratio 24.4 (10-20); Bilirubin,Total 0.4 mg/dl (0.2-1.0); Calcium 8.6 mg/dl (8.5-10.1); Creatinine Clr Calc Pharmacy 25.7 ml/min; Est GFR (African American) 48.6 ml/min; Est GFR (Non-African American) 41.9 ml/min; Globulin 2.4 gm/dl (2.5-4.0); Potassium 4.1 mmol/L (3.5-5.1); Total Protein 6.1 gm/dl (6.0-8.3)
--- NOTE | 2022-04-10 12:41 | XRay Report ---
XR chest 1V portable HISTORY: 76 years-old Male Chest Pain acute chest pain COMPARISON: Chest radiograph 12/12/2016 TECHNIQUE: AP view of the chest FINDINGS: Cardiomediastinal and hilar silhouettes are within normal limits. Atherosclerosis of the thoracic aor ta. Mild hyperinflation. No pneumothorax, pleural effusion, airspace consolidation or overt pulmonary edema. Bones of the chest appear grossly intact. IMPRESSION: No acute process. ACT 112: Negative or not required by law. The above report was generated using voice recognition software. It may contain grammatical, syntax o r spelling errors. Electronically signed by: Duncan Barajas M.D. 04/10/2022 12:40 PM
[2022-04-10 12:54] LABS: Troponin I High Sensitivity 93.4 pg/ml (0-20)
[2022-04-10] MEDS ORDERED: ASPIRIN CHEW 324 MG PO STA (13:00)
[2022-04-10 13:17] LABS: Influenza A virus by PCR Negative (Neg); Influenza B virus by PCR Negative (Neg); RSV by PCR Negative (Neg)
[2022-04-10 13:29] LABS: SARS CoV2 RNA(COVID-19)Cepheid POSITIVE (Negative)
--- NOTE | 2022-04-10 13:50 | History & Physical Report ---
Date of Service April 10, 2022 Assessment & Plan (1) Non-ST elevation [place] (NSTEMI): (2) Atrial fibrillation with rapid ventricular response: (3) Acute kidney injury superimposed on CKD: (4) COVID-19: (5) PAD (peripheral artery disease): (6) COPD (chronic obstructive pulmonary disease): (7) Bipolar 1 disorder: Plan This is a 76-year-old male with PMH of COPD, PAD, hypertension, moderate mitral regurgitation, diastolic dysfunction, bipolar 1 disorder, hypothyroidism and ot her medical problems listed below who presents after feeling unwell for a few weeks of URI symptoms and was found to have COVID-19 infection, new onset atrial fibrillation with RVR, NSTEMI and TAMIR on CKD. New onset A fib with RVR Found to be in A fib in clinic with ECG showing A fib with RVR in 140s. Duration unclear. Converted to sinus bradycardia after 10mg IV bolus of diltiazem on presentation Per Dr. Renee, avoid beta-checo or calcium channel checo at present as he is back in sinus rhythm with sinus bradycardia noted Initiating IV heparin drip for stroke ppx NSTEMI Presenting with HS troponin of 93 in setting of A fib, ECG with new ST and T wave changes in inferior leads. No chest pain Starting IV heparin without bolus Trend troponin, repeat ECG in AM, bedside echo in ED, monitor on telemetry Avoid beta-checo given current sinus bradycardia Continue atorvastatin, aspirin Fasting lipid panel and a1c in AM Patient states that if cardiac catheterization deemed indicated, preference to return to [facility] where he had his vascular procedures Covid-19 infection O2 saturation 97% on room air. Over 1 week of generalized illness so no antiviral tx indicated. Continue supportive care. Isolation precautions TAMIR on CKD Cr 1.56 (baseline Cr ~1.0) in setting of poor PO intake, infection. Given IV fluids in ED. Avoid nephrotoxic agents. Repeat BMP in AM PAD H/o L common iliac artery and left external iliac artery stenting in 2017 at [facility]. Currently on aspirin and plavix Per Dr. Renee, if long-term anticoagulation deemed indicated, options include stopping his aspirin and continuing clopidogrel plus Eliquis COPD At baseline. Continue albuterol inhaler PRN Bipolar 1 disorder Continue lithium HS Hypothyroidism Continue levothyroxine DVT Ppx: IV heparin Code status: FULL PCP: Sam Dispo: Admitted to PCU Patient seen in collaboration with Dr. Aaron. Please see addendum. History of Present Illness Chief Complaint: Malaise, sent from PCP with new onset AChet fib Primary Care Provider: Francisco Javier Vargas MD This is a 76-year-old male with PMH of COPD, PAD, hypertension, moderate mitral regurgitation, diastolic dysfunction, bipolar 1 disorder, hypothyroidism and other medical problems listed below who presents after feeling unwell for a few weeks of URI symptoms. Endorsing congestion and productive cough over the last week as well as insomnia, decreased appetite and p.o. intake as well as diarrhea over the past few days. Last diarrhea 2 days ago. Also endorsing episode of dizziness 2 days ago but no fall or syncopal episode. No fever, chills, headaches, palpitations, chest pain or SOB. Was seen by PCP today and found to be hypotensive with tachycardia in the 140s found on EKG to be new onset atrial fibrillation. Was transferred via EMS to [facility] ED for further evaluation. Has history of 2D echo from Jan 2022 with EF 59%, moderate mitral regurgitation, moderate tricuspid regurgitation and moderate AV sclerosis. Allergies Allergy/AdvReac Type Severity Reaction Status Date / Time No Known Allergies Allergy Unverified 12/12/16 18:03 Home Medications Medication Instructions Recorded Confirmed Type albuterol sulfate 90 mcg/actuation 2 puff inhalation Q4H PRN 04/10/22 04/10/22 History aerosol inhaler Shortness Of Breath Or Wheezing aspirin 81 mg capsule 81 mg PO DAILY 04/10/22 04/10/22 History atorvastatin 40 mg tablet 40 mg PO DAILY 04/10/22 04/10/22 History clopidogrel 75 mg tablet 75 mg PO DAILY 04/10/22 04/10/22 History levothyroxine 100 mcg tablet 100 mcg PO DAILY 04/10/22 04/10/22 History lisinopril 10 mg tablet 10 mg PO DAILY 04/10/22 04/10/22 History lithium carbonate 300 mg 300 mg PO HS 04/10/22 04/10/22 History tablet,extended release Past Med/Surg History Medical History (Updated 04/10/22 @ 16:39 by Carmencita Evans PA-C) Bipolar 1 disorder COPD (chronic obstructive pulmonary disease) Diastolic dysfunction PAD (peripheral artery disease) Surgical History History of intravascular stent placement L common iliac artery and left external iliac artery stenting 12/14/[address] Walker. Family History Other Cancer Diabetes Social History Smoking Status: Former smoker Tobacco Type: Cigarettes Smoking End Date: 2009; Hx Alcohol Use: Yes Alcohol Intake Frequency: Monthly or Less Hx Substance Use: No Preferred Language: Filipino Communication Ability: Effective Multiplex Operator Required: No Beliefs That Will Affect Care: None Current Living Situation: Spouse Feels Safe at Home: Yes Safety Concerns: Feels Safe At This Time Assistive Devices: Denture - Upper Review of Systems Review of Systems: At least ten systems reviewed and negative except as noted in the HPI. Physical Exam Physical Exam: Please see Dr. Aaron's addendum for physical exam details. Results & Data Results & Data ([facility]) Vital Signs (Past 12 Hours) Vital Signs Temp Pulse Resp BP BP Pulse Ox O2 Del Method 04/10/22 12:21 57 L 23 97 04/10/22 12:21 114/62 04/10/22 12:15 72 20 95 04/10/22 12:01 122 H 22 94 04/10/22 12:01 107/65 04/10/22 12:00 110 H 25 H 78 L 04/10/22 11:45 122 H 26 H 04/10/22 11:40 113 H 18 04/10/22 11:54 116 H 95 Room Air 04/10/22 11:38 20 141/86 H 99 Room Air 04/10/22 11:38 99 Room Air 04/10/22 11:38 Room Air 04/10/22 11:19 36.6 C 120 H 18 141/78 H 99 Room Air Laboratory Results Short CBC 04/10/22 Range/Units 11:58 WBC 4.50 L (4.8-10.8) K/ul Hgb 13.6 L (14.0-18.0) g/dl Hct 40.4 (40.1-51.0) % Plt Count 167 (130-400) K/uL BMP 04/10/22 11:58 Sodium 138 Potassium 4.1 Chloride 107 Carbon Dioxide 23 BUN 38 H Creatinine 1.56 H Glucose 109 H Calcium 8.6 Liver Function 04/10/22 Range/Units 11:58 Total Bilirubin 0.4 (0.2-1.0) mg/dl AST 32 (13-39) U/L ALT 19 (7-52) U/L Alkaline Phosphatase 78 (34-104) U/L Albumin 3.7 (3.4-5.0) gm/dl Diagnostic Findings Chest X-Ray 04/10/22 11:54 XR chest 1V portable HISTORY: 76 years-old Male Chest Pain acute chest pain COMPARISON: Chest radiograph 12/12/2016 TECHNIQUE: AP view of the chest FINDINGS: Cardiomediastinal and hilar silhouettes are within normal limits. Atherosclerosis of the thoracic aorta. Mild hyperinflation. No pneumothorax, pleural effusion, airspace consolidation or overt pulmonary edema. Bones of the chest appear grossly intact. IMPRESSION: No acute process. ACT 112: Negative or not required by law. The above report was generated using voice recognition software. It may contain grammatical, syntax or spelling errors. Electronically signed by: Duncan Barajas M.D. 04/10/2022 12:40 PM ECG Additional Comments: Sinus rhythm with bradycardia, ST and T wave changes noted in inferior leads. Evidence of previous septal infarct. Code Status & VTE Plan VTE Prophylaxis Plan VTE Prophylaxis will be ordered: Yes Supervising Physician Co-Signing Physician Notes Pt is a 76 y/o M with hx of PAD s/p stents, COPD, hypothyroidism, HLD, Bipolar disorder BCC admitted for New onset Afib with RVR, elevated troponin with EKG changes and COVID infection. PE: NAD, well developed HEENT: Dry mucus membrane Lungs: CTA, no wheezing or crackles Cardiac: in Afib Abd: ND, NT, soft MSK: No LE edema Psych: AAOx3, normal affect A/P: New onset afib with RVR: -rate was controlled with Cardizem bolus -Pt returned to sinus - Echo was obtained: EF 60-65%, normal L ventricular wall motion -Cardiology consulted - started the pt on heparin drip --- continue DAPT for now - Admit to tele NSTEMI with EKG changes: -pt denied any CP -trend trop -pt would like to be transferred to [facility] if cardia cath required - started the pt on heparin drip COVID infection: -pt is not hypoxic -supportive management for now TAMIR on CKD: -pt was dehydrated on exam -s/p fluids (NS 1L bolus) -trend BMP Other chronic conditions: plan as above Agree with A/P Carmencita Evans PA-C
[2022-04-10] MEDS ORDERED: ALBUTEROL HFA 8 GM INHALER INH PRN (15:15)
[2022-04-10] MEDS ORDERED: Heparin IV Adult Wt-Based Standard *NO* Bolus Protocol IV SCH (15:15)
--- NOTE | 2022-04-10 15:19 | Cardiology Consultation ---
Date of Consultation April 10, 2022 Assessment & Plan (1) Non-ST elevation [place] (NSTEMI): - Patient without any rustam anginal symptoms, but with findings of mild elevation in the high-sensitivity troponin, and new ischemic EKG changes noted. -We will cautiously start unfractionated heparin on top of his chronic treatment with aspirin and clopidogrel. -Avoid beta-checo given current sinus bradycardia. -Continue chronic atorvastatin therapy. -Update fasting lipid panel -Patient states that if cardiac catheterization deemed indicated, he would prefer to have this done at [facility] where he had his vascular procedures. (2) Atrial fibrillation with rapid ventricular response: - Duration difficult to determine, as patient did not have any subjective palpitations -Avoid beta-checo or calcium channel checo at present as he is back in sinus rhythm, and sinus bradycardia noted. -Of note he is on lithium which is heart rate lowering properties. -Unfractionated heparin initiated for stroke prophylaxis (3) TAMIR (acute kidney injury): - Baseline creatinine of 0.9, 1.56 today -Agree with gentle hydration (4) PAD (peripheral artery disease): - Of note, patient is on chronic aspirin and clopidogrel. -If long-term anticoagulation deemed indicated, options include stopping his aspirin and continuing clopidogrel plus Eliquis. (5) COVID-19: - Patient is not hypoxic. -At least 1 week of generalized illness noted, perhaps longer. Continue supportive care. History of Present Illness History of Present Illness Timo Weiss is a 76 year old male seen in cardiology consultation per the request of Dr Gama for the evaluation of newly diagnosed atrial fibrillation and abnormal EKG. The patient is seen in room C3 of the emergency department under COVID-19 isolation protocol. An echocardiogram had been performed on 02/01/2022 with findings of normal left ventricular systolic function, LVEF 59%, moderate mitral regurgitation moderate tricuspid regurgitation. Mild pulmonary hypertension was present with an estimated pulmonary artery systolic pressure of 43 mmHg. The patient was subsequently seen in outpatient cardiology follow-up by Dr. Coronado of our practice on 03/06/2022 to establish care. At that time stable cardiac signs and symptoms were noted. An EKG performed 03/06/2022 at the outpatient cardiology clinic revealed sinus bradycardia 55 bpm with diffuse nonspecific T wave flattening in the lateral leads. Patient has noted 1 week of generalized illness feeling with decreased exercise. He is accompanied by his spouse who has been feeling well. They were pressure at home with their daughter's family and multiple family contacts have been sick. The patient developed significant diarrhea 2 days ago, and due to ongoing illness presented to his primary care provider's office today with findings of atrial fibrillation with rapid ventricular response at 140 bpm, with noted diffuse repolarization changes consistent with inferior and anterolateral ischemia. Patient has apparently not felt well since around [facility], but worse over the last week. He was referred to the emergency room. Initial blood pressure was 141/78, initial heart rate 120. 10 mg of IV diltiazem was administered with subsequent conversion to sinus rhythm. Repeat EKG performed today at 12:32 PM and interpreted independently reveals sinus bradycardia [address]-T wave abnormality in the inferior leads as well as the precordial leads V3 to V6 consistent with ischemia. At the time my assessment, patient denies any rustam chest discomfort or shortness of breath. And states that he did not have any subjective sensation that his heart rate was racing. His ongoing feelings of just generalized illness. One HS troponin has resulted thus far I was mildly elevated at 93 pg/ml. COVID screen was positive. Past Medical History: Reformed smoker having quit approximately 10 years ago Peripheral arterial disease left common iliac artery stent performed in [place] in 2015 or 2016. 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 Walker. Moderate MR, Moderate TR, mild pulmonary HTN chronic thin body habitus, weight of 95-110 lbs Hypertension Dyslipidemia, most recent LDL cholesterol as measured December,, 59 mg/dL Bipolar disorder Allergies Allergy/AdvReac Type Severity Reaction Status Date / Time No Known Allergies Allergy Unverified 12/12/16 18:03 Home Medications Medication Instructions Recorded Confirmed Type albuterol sulfate 90 mcg/actuation 2 puff inhalation Q4H PRN 04/10/22 04/10/22 History aerosol inhaler Shortness Of Breath Or Wheezing aspirin 81 mg capsule 81 mg PO DAILY 04/10/22 04/10/22 History atorvastatin 40 mg tablet 40 mg PO DAILY 04/10/22 04/10/22 History clopidogrel 75 mg tablet 75 mg PO DAILY 04/10/22 04/10/22 History levothyroxine 100 mcg tablet 100 mcg PO DAILY 04/10/22 04/10/22 History lisinopril 10 mg tablet 10 mg PO DAILY 04/10/22 04/10/22 History lithium carbonate 300 mg 300 mg PO HS 04/10/22 04/10/22 History tablet,extended release Patient History Medical History Bipolar 1 disorder COPD (chronic obstructive pulmonary disease) Diastolic dysfunction PAD (peripheral artery disease) Surgical History History of intravascular stent placement Social History Smoking Status: Former smoker Tobacco Type: Cigarettes Hx Alcohol Use: No Hx Substance Use: No Feels Safe at Home: Yes Review of Systems Review of Systems: All systems reviewed & are unremarkable except as noted in HPI & below Physical Exam Physical Exam: Temp Pulse Resp BP Pulse Ox O2 Del Method 36.6 C 55 L 24 135/62 96 04/10/22 11:19 04/10/22 14:30 04/10/22 14:30 04/10/22 14:30 04/10/22 14:30 04/10/22 14:40 Constitutional: + thin; no acute distress Respiratory: normal respiratory effort, lungs clear to auscultation Cardiovascular: Rate/Rhythm: regular rate Heart Sounds: + murmur (1/6 systolic murmur) Extremities: no edema Gastrointestinal (Abdomen): normal bowel sounds, soft, nontender, no hepatosplenomegaly Neurologic: PERRL, EOMI, accommodation nl, no face palsy, no dysarthria Results & Data ([facility]) Laboratory Results Cardiac Enzymes 04/10/22 04/10/22 Range/Units 11:58 12:21 AST 32 (13-39) U/L Troponin I High Sens 93.4 H* (0-20) pg/ml B-Natriuretic Peptide 227 H (0-100) pg/ml Coagulation 04/10/22 Range/Units 12:21 B-Natriuretic Peptide 227 H (0-100) pg/ml CBC 04/10/22 Range/Units 11:58 WBC 4.50 L (4.8-10.8) K/ul RBC 4.21 L (4.63-6.08) M/uL Hgb 13.6 L (14.0-18.0) g/dl Hct 40.4 (40.1-51.0) % Plt Count 167 (130-400) K/uL Neut # (Auto) 3.31 (1.4-6.5) K/uL Lymph # (Auto) 0.46 L (1.2-3.4) K/uL [place] # (Auto) 0.71 (0.24-0.82) K/uL Eos # (Auto) 0.00 (0-0.50) K/uL Baso # (Auto) 0.01 (0-0.2) K/uL Comprehensive Metabolic Panel 04/10/22 Range/Units 11:58 Sodium 138 (136-145) mmol/L Potassium 4.1 (3.5-5.1) mmol/L Chloride 107 (98-107) mmol/L Carbon Dioxide 23 (21-32) mmol/L BUN 38 H (6-23) mg/dl Creatinine 1.56 H (0.6-1.4) mg/dl Glucose 109 H (70-99(Fasting)) mg/dl Calcium 8.6 (8.5-10.1) mg/dl AST 32 (13-39) U/L ALT 19 (7-52) U/L Alkaline Phosphatase 78 (34-104) U/L Total Protein 6.1 (6.0-8.3) gm/dl Albumin 3.7 (3.4-5.0) gm/dl
[2022-04-10] MEDS ORDERED: POLYETHYLENE (MIRALAX) 17 GM PACK PO PRN (15:37)
[2022-04-10] MEDS ORDERED: ACETAMINOPHEN 325 MG TAB PO PRN (15:37)
[2022-04-10] MEDS ORDERED: NITROGLYCERIN SL 0.4 MG/TAB TAB SL PRN (15:37)
[2022-04-10] MEDS ORDERED: ONDANSETRON INJ 2 MG/ML 2 ML VIAL IV PRN (15:37)
[2022-04-10 16:48] LABS: Partial Thromboplastin Ratio 1.1; Partial Thromboplastin Time 29.2 Seconds (21.0-31.0); Prothrombin Time 10.5 Seconds (9.0-12.0)
[2022-04-10] MEDS: HEPARIN SODIUM/DEXTROSE 25,000 UNITS/500 ML BAG IV SCH (16:51)
[2022-04-10] MEDS ORDERED: SODIUM CHLORIDE 0.9% 500 ML IV SCH (17:00)
[2022-04-10] MEDS: LITHIUM CARBONATE SLOW REL 300 MG TAB PO SCH (20:23)
[2022-04-10 23:16] LABS: Partial Thromboplastin Ratio 2.5
[2022-04-11] MEDS: MELATONIN 3 MG TAB PO PRN ×2 (01:05→21:24)
[2022-04-11 06:35] LABS: Partial Thromboplastin Ratio 4.2
[2022-04-11 06:41] LABS: BUN Creatinine Ratio 31.7 (10-20); Calcium 7.8 mg/dl (8.5-10.1); Chol HDL Ratio 3.7 (0-5); Creatinine Clr Calc Pharmacy 37.2 ml/min; Est GFR (African American) 82.2 ml/min; Est GFR (Non-African American) 70.9 ml/min
[2022-04-11 06:42] LABS: Partial Thromboplastin Time 116.5 Seconds (21.0-31.0)
[2022-04-11 06:44] LABS: Hematocrit (blood only) 34.9 % (40.1-51.0); Hemoglobin 11.5 g/dl (14.0-18.0); Mean Corpuscular Hemoglobin 32.1 pg (25.0-34.0); Mean Corpuscular Volume 97.5 fL (80.0-100.0); Mean Platelet Volume 10.4 fL (9.4-12.4); Platelet Count 134 K/uL (130-400); RDW Coefficient of Variation 13.2 % (11.5-14.5); RDW Standard Deviation 47.4 fL (36.4-46.3); Red Blood Count 3.58 M/uL (4.63-6.08); White Blood Count 3.95 K/ul (4.8-10.8)
[2022-04-11 07:27] LABS: Estimated Average Glucose 123 mg/dl; Hemoglobin A1C 5.9 % (4.5-5.6)
[2022-04-11] MEDS: ATORVASTATIN 40 MG TAB PO SCH (07:44)
[2022-04-11] MEDS: LEVOTHYROXINE SODIUM 100 MCG TABLET PO SCH (07:45)
[2022-04-11] MEDS: CLOPIDOGREL BISULFATE 75 MG TAB PO SCH (07:45)
[2022-04-11] MEDS: lisinopril 10 MG TAB PO SCH (07:45)
[2022-04-11] MEDS ORDERED: ASPIRIN 81 MG ECTAB PO SCH (09:00)
--- NOTE | 2022-04-11 10:03 | Cardiology Progress Note ---
Date of Service April 11, 2022 Assessment & Plan (1) Non-ST elevation [place] (NSTEMI): Plan: - Patient without any rusatm anginal symptoms, but with findings of mild elevation in high-sensitivity troponin, and new ischemic EKG changes noted in ED after conversion to SR from AFib RVR. -It is unclear how long he was tachycardic. - ST changes resolved on repeat tracing today, 04/11/22. -Mild , flat troponin elevation , consistent with Type II event, demand ischemia in the setting of tachycardia and non cardiac illness (COVID-19). -Echo unchanged compared to 01/2022. -Given patient's past history of PAD, left iliac artery intervention, likely has underlying CAD. -No indication for emergent cardiac catheterization -Recommend medical therapy and observation for now -Pt states that if cardiac cath indicated in future, he would prefer this is performed at [facility] Continue medical RX, ASA, chronic clopidogrel, UF heparin infusion, atorvastatin. (2) Atrial fibrillation with rapid ventricular response: Plan: - Duration difficult to determine, as patient did not have any subjective palpitations -Avoid beta-checo or calcium channel checo at present as he is back in sinus rhythm, and sinus bradycardia noted. -Of note he is on lithium which is heart rate lowering properties. -Unfractionated heparin initiated for stroke prophylaxis. -depending on progress, will consider transition to oral anticoagulation, perhaps Eliquis plus clopidogrel. (3) TAMIR (acute kidney injury): Plan: - Baseline creatinine of 0.9 --> 1.56--> 1.01 (4) PAD (peripheral artery disease): Plan: - Of note, patient is on chronic aspirin and clopidogrel. -If long-term anticoagulation deemed indicated, options include stopping his aspirin and continuing clopidogrel plus Eliquis. (5) COVID-19: Plan: - Patient is not hypoxic. -At least 1 week of generalized illness noted, perhaps longer. Continue supportive care. Admission and Anticipated Discharge Date Admission Date: April 10, 2022 Subjective Patient seen in cardiology follow up . He notes feeling improved. Denies subjective palpitations, denies chest pain, or shortness of breath. Denies diarrhea. Telemetry reveals Reveals predominantly sinus bradycardia in the 40s to 50s. There were occasional episodes of what looks like an atrial tachycardia or atrial fibrillation that, up to 12 beats in duration overnight. Also a 5 beat run of nonsustained ventricular tachycardia was observed. Review of Systems Review of Systems: All systems reviewed & are unremarkable except as noted in HPI & below Physical Exam Constitutional: + thin; no acute distress Respiratory: normal respiratory effort, lungs clear to auscultation Cardiovascular: Rate/Rhythm: regular rate Heart Sounds: + murmur (1/6 systolic murmur) Extremities: no edema Gastrointestinal (Abdomen): normal bowel sounds, soft, nontender, no hepatosplenomegaly Neurologic: PERRL, EOMI, accommodation nl, no face palsy, no dysarthria Results & Data ([facility]) Vital Signs (Past 12 Hours) Vital Signs Temp Pulse Pulse Resp BP Pulse Ox O2 Del Method 04/11/22 07:55 36.5 C 54 L 16 162/68 H 98 Room Air 04/10/22 22:19 57 L 04/11/22 03:58 36.7 C 64 16 126/76 97 Room Air 04/10/22 22:43 36.7 C 54 L 16 126/76 96 Room Air Laboratory Results Cardiac Enzymes 04/10/22 04/10/22 04/10/22 Range/Units 11:58 12:21 15:40 AST 32 (13-39) U/L Troponin I High Sens 93.4 H* 99.0 H* (0-20) pg/ml B-Natriuretic Peptide 227 H (0-100) pg/ml 04/10/22 04/11/22 Range/Units 17:56 00:35 AST (13-39) U/L Troponin I High Sens 98.3 H* 103.7 H* (0-20) pg/ml B-Natriuretic Peptide (0-100) pg/ml Coagulation 04/10/22 04/10/22 04/10/22 Range/Units 11:58 12:21 22:28 PT 10.5 (9.0-12.0) Seconds APTT 29.2 69.0 H* (21.0-31.0) Seconds B-Natriuretic Peptide 227 H (0-100) pg/ml 04/11/22 Range/Units 05:41 PT (9.0-12.0) Seconds APTT 116.5 H* (21.0-31.0) Seconds B-Natriuretic Peptide (0-100) pg/ml Lipids 04/11/22 Range/Units 05:41 Triglycerides 114 (0-150) mg/dl Cholesterol 89 (0-200) mg/dl HDL Cholesterol 24 mg/dl Cholesterol/HDL Ratio 3.7 (0-5) CBC 04/10/22 04/11/22 Range/Units 11:58 05:41 WBC 4.50 L 3.95 L (4.8-10.8) K/ul RBC 4.21 L 3.58 L (4.63-6.08) M/uL Hgb 13.6 L 11.5 L (14.0-18.0) g/dl Hct 40.4 34.9 L (40.1-51.0) % Plt Count 167 134 (130-400) K/uL Neut # (Auto) 3.31 (1.4-6.5) K/uL Lymph # (Auto) 0.46 L (1.2-3.4) K/uL [place] # (Auto) 0.71 (0.24-0.82) K/uL Eos # (Auto) 0.00 (0-0.50) K/uL Baso # (Auto) 0.01 (0-0.2) K/uL Comprehensive Metabolic Panel 04/10/22 04/11/22 Range/Units 11:58 05:41 Sodium 138 138 (136-145) mmol/L Potassium 4.1 4.0 (3.5-5.1) mmol/L Chloride 107 111 H (98-107) mmol/L Carbon Dioxide 23 22 (21-32) mmol/L BUN 38 H 32 H (6-23) mg/dl Creatinine 1.56 H 1.01 D (0.6-1.4) mg/dl Glucose 109 H 85 (70-99(Fasting)) mg/dl Calcium 8.6 7.8 L (8.5-10.1) mg/dl AST 32 (13-39) U/L ALT 19 (7-52) U/L Alkaline Phosphatase 78 (34-104) U/L Total Protein 6.1 (6.0-8.3) gm/dl Albumin 3.7 (3.4-5.0) gm/dl Diagnostic Findings TTecho performed 04/11/22 : normal LV wall motion, LVEF 60-65% moderate MR mild to moderate TR PASP 33 mm Hg. EKG performed 04/11/22 at 5:58-uninterpretable due to artifact EKG performed 04/11/22: at 9:21 am: SB at 57 bpm with PACs. compared to the prior tracing from 04/10/22, the previously noted ST changes have resolved.
--- NOTE | 2022-04-11 11:46 | Hospitalist Progress Note ---
Date of Service April 11, 2022 Assessment & Plan (1) Non-ST elevation [place] (NSTEMI): (2) Atrial fibrillation with rapid ventricular response: (3) Acute kidney injury superimposed on CKD: (4) COVID-19: (5) PAD (peripheral artery disease): (6) COPD (chronic obstructive pulmonary disease): (7) Bipolar 1 disorder: Plan This is a 76-year-old male with PMH of COPD, PAD, hypertension, moderate mitral regurgitation, diastolic dysfunction, bipolar 1 disorder, hypothyroidism and ot her medical problems listed below who presents after feeling unwell for a few weeks of URI symptoms and was found to have COVID-19 infection, new onset atrial fibrillation with RVR, NSTEMI and TAMIR on CKD. New onset A fib with RVR Found to be in A fib in clinic with ECG showing A fib with RVR in 140s. Duration unclear. Converted to sinus bradycardia after 10mg IV bolus of diltiazem on presentation Telemetry during the hospitalization shows episodes of atrial tachycardia versus A. fib. EchoEF of 60 to 65%; no significant wall motion abnormalities. Plan: -No beta-checo or calcium channel checo given sinus bradycardia. -Currently on heparin drip; plan to transition to DOAC. He is already on aspirin and Plavix; would likely be on Eliquis plus plavix. Elevated troponin likely secondary to demand ischemia No chest pain or shortness of breath on admission. High sensitive troponin around 100s; no significant delta. Echocardiogram as above Plan is to observe him for any symptoms. If he requires cardiac cath; he prefers it to be performed at [facility]. Covid-19 infection O2 saturation 97% on room air. Over 1 week of generalized illness so no antiviral tx indicated. Continue supportive care. Isolation precautions TAMIR on CKD Improvement in the creatinine after IV hydration. PAD H/o L common iliac artery and left external iliac artery stenting in 2017 at [facility]. Currently on aspirin and plavix COPD At baseline. Continue albuterol inhaler PRN Bipolar 1 disorder Continue lithium HS Hypothyroidism Continue levothyroxine DVT Ppx: IV heparin Code status: FULL PCP: Sam Dispo: Admitted to PCU Admission and Anticipated Discharge Date Admission Date: April 10, 2022 Subjective Patient seen and examined at bedside. He is comfortably lying in the bed; not in distress. He denies fever, chills, chest pain or shortness of breath. Telemetry shows predominantly sinus bradycardia along with episodes of atrial tachycardia versus A. fib. Also had 5 beats of nonsustained V. tach. Review of Systems Review of Systems: All systems reviewed & are unremarkable except as noted in Subjective Physical Exam Physical Exam: Constitutional: Awake, alert orient x3. Not in any distress. Appears thin. WD/WN, vitals as above, NAD, sitting up in bed, pleasant, conversing easily Respiratory: normal respiratory effort, lungs clear to auscultation, no wheeze, rales, rhonchi. Normal insp/exp effort, no accessory muscle use Cardiovascular: RRR, no murmur, no edema Vessels: no JVD or carotid bruit Chest: normal inspection of chest Abdomen: normal bowel sounds, soft, nontender, no hepatosplenomegaly Musculoskeletal: no cyanosis or clubbing, extremities motor strength 5/5 Skin: no rashes, warm and dry normal turgor Neurologic: PERRL, EOMI, accommodation nl, no face palsy, no dysarthria CN's II- XI intact bilaterally and moves all extremities Psychiatric: A+Ox3, euthymic affect Lymphatic: no cervical or axillary lymphadenopathy : deferred Results & Data Results & Data ([facility]) Vital Signs (Past 12 Hours) Vital Signs Temp Pulse Resp BP Pulse Ox O2 Del Method 04/11/22 08:00 Room Air 04/11/22 07:55 36.5 C 54 L 16 162/68 H 98 Room Air 04/11/22 03:58 36.7 C 64 16 126/76 97 Room Air Laboratory Results Laboratory Results WBC 3.95 K/ul (4.8-10.8) L 04/11/22 05:41 RBC 3.58 M/uL (4.63-6.08) L 04/11/22 05:41 Hgb 11.5 g/dl (14.0-18.0) L 04/11/22 05:41 Hct 34.9 % (40.1-51.0) L 04/11/22 05:41 MCV 97.5 fL (80.0-100.0) 04/11/22 05:41 MCH 32.1 pg (25.0-34.0) 04/11/22 05:41 MCHC 33.0 g/dL (32.0-36.0) 04/11/22 05:41 RDW Std Deviation 47.4 fL (36.4-46.3) H 04/11/22 05:41 RDW Coeff of [place] 13.2 % (11.5-14.5) 04/11/22 05:41 Plt Count 134 K/uL (130-400) 04/11/22 05:41 MPV 10.4 fL (9.4-12.4) 04/11/22 05:41 Immature Gran % (Auto) 0.2 % 04/10/22 11:58 Neut % (Auto) 73.6 % 04/10/22 11:58 Lymph % (Auto) 10.2 % 04/10/22 11:58 [place] % (Auto) 15.8 % 04/10/22 11:58 Eos % (Auto) 0.0 % 04/10/22 11:58 Baso % (Auto) 0.2 % 04/10/22 11:58 Neut # (Auto) 3.31 K/uL (1.4-6.5) 04/10/22 11:58 Lymph # (Auto) 0.46 K/uL (1.2-3.4) L 04/10/22 11:58 [place] # (Auto) 0.71 K/uL (0.24-0.82) 04/10/22 11:58 Eos # (Auto) 0.00 K/uL (0-0.50) 04/10/22 11:58 Baso # (Auto) 0.01 K/uL (0-0.2) 04/10/22 11:58 Immature Gran # (Auto) 0.01 K/uL (0.00-0.02) 04/10/22 11:58 PT 10.5 Seconds (9.0-12.0) 04/10/22 11:58 INR 1.0 (0.9-1.1) 04/10/22 11:58 APTT 116.5 Seconds (21.0-31.0) H* 04/11/22 05:41 PTT Ratio 4.2 04/11/22 05:41 Sodium 138 mmol/L (136-145) 04/11/22 05:41 Potassium 4.0 mmol/L (3.5-5.1) 04/11/22 05:41 Chloride 111 mmol/L (98-107) H 04/11/22 05:41 Carbon Dioxide 22 mmol/L (21-32) 04/11/22 05:41 Anion Gap 5 (3-11) 04/11/22 05:41 BUN 32 mg/dl (6-23) H 04/11/22 05:41 Creatinine 1.01 mg/dl (0.6-1.4) D 04/11/22 05:41 Est Cr Clr Drug Dosing 37.2 ml/min 04/11/22 05:41 Est GFR ( Amer) 82.2 ml/min 04/11/22 05:41 Est GFR (Non-Af Amer) 70.9 ml/min 04/11/22 05:41 BUN/Creatinine Ratio 31.7 (10-20) H 04/11/22 05:41 Glucose 85 mg/dl (70-99(Fasting)) 04/11/22 05:41 Estimat Average Glucose 123 mg/dl 04/11/22 05:41 Hemoglobin A1c 5.9 % (4.5-5.6) H 04/11/22 05:41 Calcium 7.8 mg/dl (8.5-10.1) L 04/11/22 05:41 Magnesium 2.0 mg/dl (1.7-2.4) 04/10/22 11:58 Total Bilirubin 0.4 mg/dl (0.2-1.0) 04/10/22 11:58 AST 32 U/L (13-39) 04/10/22 11:58 ALT 19 U/L (7-52) 04/10/22 11:58 Alkaline Phosphatase 78 U/L (34-104) 04/10/22 11:58 Troponin I High Sens 103.7 pg/ml (0-20) H* 04/11/22 00:35 B-Natriuretic Peptide 227 pg/ml (0-100) H 04/10/22 12:21 Total Protein 6.1 gm/dl (6.0-8.3) 04/10/22 11:58 Albumin 3.7 gm/dl (3.4-5.0) 04/10/22 11:58 Globulin 2.4 gm/dl (2.5-4.0) L 04/10/22 11:58 Albumin/Globulin Ratio 1.5 (0.9-2) 04/10/22 11:58 Triglycerides 114 mg/dl (0-150) 04/11/22 05:41 Cholesterol 89 mg/dl (0-200) 04/11/22 05:41 LDL Cholesterol, Calc 42 mg/dl 04/11/22 05:41 VLDL Cholesterol, Calc 23 mg/dl (0-30) 04/11/22 05:41 HDL Cholesterol 24 mg/dl 04/11/22 05:41 Cholesterol/HDL Ratio 3.7 (0-5) 04/11/22 05:41 Lipase 35 U/L (11-82) 04/10/22 11:58 SARS-CoV-2 (PCR) POSITIVE (Negative) A* 04/10/22 12:21 Influenza Type A (PCR) Negative (Neg) 04/10/22 12:21 Influenza Type B (PCR) Negative (Neg) 04/10/22 12:21 RSV (RT-PCR) Negative (Neg) 04/10/22 12:21 Impressions Chest X-Ray 04/10/22 11:54 XR chest 1V portable HISTORY: 76 years-old Male Chest Pain acute chest pain COMPARISON: Chest radiograph 12/12/2016 TECHNIQUE: AP view of the chest FINDINGS: Cardiomediastinal and hilar silhouettes are within normal limits. A therosclerosis of the thoracic aorta. Mild hyperinflation. No pneumothorax, pleural effusion, airspace consolidation or overt pulmonary edema. Bones of the chest appear grossly intact. IMPRESSION: No acute process. ACT 112: Negative or not required by law. The above report was generated using voice recognition software. It may contain grammatical, syntax or spelling errors. Electronically signed by: Duncan Barajas M.D. 04/10/2022 12:40 PM
--- NOTE | 2022-04-11 15:14 | Communication Note ---
Date of Service: April 11, 2022 Patient reassessed by phone. He continues to feel better. His spouse is visiting him at the bedside and states that he has had improvement. He has been in sinus bradycardia for the most part, with brief episodes of recurrent tachycardia consistent with paroxysmal atrial fibrillation. His [id number] score is 4 for risk factors of age > 75 (2 points) , HTN, and history of peripheral vascular disease predicting a moderate to high risk of cardioembolic stroke in the setting of paroxysmal atrial fibrillation. At present, given his clinical improvement with supportive care, and resolution of the previously noted ischemic EKG changes, I would recommend ongoing medication therapy. Given his hypotension on presentation, lowest blood pressure yesterday at fourteen 187/54, I think it is okay to permit his systolic blood pressure to run a little high, and his most recent blood pressure measurements have been 126/76 and then 162/68. Plan: Patient and spouse in agreement with regards to staying in the hospital at least until tomorrow. Discontinue aspirin Continue chronic clopidogrel therapy 75 mg daily At 2100, will plan on discontinuing unfractioned heparin and starting Eliquis 5 mg twice daily. Patient is not on a beta-checo or calcium channel checo due to baseline bradycardia, history of lithium treatment also noted which can potentiate bradycardia. I called the patient's local pharmacy, [facility]. They do not have his most recent insurance information available, and therefore were unable to predict his [id number] cost for Eliquis. Based on the online tool in his outpatient epic chart, his [id number] cost for a 30-day supply is estimated to be $47. 00 which the patient/spouse say is acceptable. If patient is discharged on 04/12/2022 () will need at least 2 home doses provided by our inpatient pharmacy to get him through until he can have the prescription filled on Saturday. Dr Coronado rounding for our practice on 04/12 Patient already has cardiology follow-up planned 06/08/2022 3:00 PM Provider : Ludwin Coronado, DO Department Cardiology, [facility]
[2022-04-11] MEDS: HEPARIN SODIUM/DEXTROSE 25,000 UNITS/500 ML BAG IV SCH (16:54)
[2022-04-11] MEDS ORDERED: METOPROLOL TARTRATE 1 MG/ML VIAL IV SCH (17:45)
[2022-04-11 18:02] LABS: Partial Thromboplastin Ratio 2.7
[2022-04-11] MEDS ORDERED: dilTIAZem HCl 5 MG/ML 5 ML VIAL IV ONE (18:05)
[2022-04-11 18:09] LABS: Partial Thromboplastin Time 75.5 Seconds (21.0-31.0)
[2022-04-11] MEDS ORDERED: [UNRECOGNIZED DRUG - REMARK] ONE (21:00)
[2022-04-11] MEDS: APIXABAN 5 MG TABLET PO SCH (21:24)
[2022-04-11] MEDS: LITHIUM CARBONATE SLOW REL 300 MG TAB PO SCH (21:32)
--- NOTE | 2022-04-12 06:20 | Electrocardiogram Report ---
Test Reason : Blood Pressure : / mmHG Vent. Rate : 110 BPM Atrial Rate : 102 BPM P-R Int : 000 ms QRS Dur : 084 ms QT Int : 324 ms P-R-T Axes : 000 078 249 degrees QTc Int : 438 ms Poor data quality, interpretation may be adversely affected Atrial fibrillation with rapid ventricular response with premature ventricular or aberrantly conducte d complexes Abnormal ECG When compared with ECG of 17-OCT-2017 16:10, Atrial fibrillation has replaced Sinus rhythm Vent. rate has increased by 63 bpm Confirmed by Frankie Mei ([id number]) on 04/12/2022 6:19:49 AM Referred By: REFERRED SELF Confirmed By:Frankie Mei
--- NOTE | 2022-04-12 06:23 | Electrocardiogram Report ---
Test Reason : Blood Pressure : / mmHG Vent. Rate : 054 BPM Atrial Rate : 054 BPM P-R Int : 122 ms QRS Dur : 080 ms QT Int : 396 ms P-R-T Axes : 080 086 267 degrees QTc Int : 375 ms Sinus bradycardia with sinus arrhythmia Abnormal ECG When compared with ECG of 10-APR-2022 11:35, Sinus rhythm has replaced Atrial fibrillation Vent. rate has decreased BY 56 BPM Reconfirmed by Frankie Mei ([id number]) on 04/12/2022 6:23:27 AM Referred By: REFERRED SELF Confirmed By:Frankie Mei
[2022-04-12 06:38] LABS: BUN Creatinine Ratio 23.8 (10-20); Calcium 7.8 mg/dl (8.5-10.1); Creatinine Clr Calc Pharmacy 47.1 ml/min; Est GFR (African American) 99.2 ml/min; Est GFR (Non-African American) 85.6 ml/min; Potassium 3.7 mmol/L (3.5-5.1)
--- NOTE | 2022-04-12 06:54 | Electrocardiogram Report ---
Test Reason : Blood Pressure : / mmHG Vent. Rate : 055 BPM Atrial Rate : 055 BPM P-R Int : 122 ms QRS Dur : 076 ms QT Int : 378 ms P-R-T Axes : 104 089 105 degrees QTc Int : 361 ms Poor data quality, interpretation may be adversely affected Sinus bradycardia with occasional Premature ventricular complexes and Premature atrial complexes Nonspecific ST and T wave abnormality Abnormal ECG When compared with ECG of 10-APR-2022 12:32, T wave inversion less evident in Anterolateral leads T wave inversion no longer evident in Inferior leads Premature ventricular complexes are now Present Premature atrial complexes are now Present Confirmed by Frankie Mei ([id number]) on 04/12/2022 6:53:52 AM Referred By: REFERRED SELF Confirmed By:Frankie Mei
[2022-04-12 07:02] LABS: Hematocrit (blood only) 34.6 % (40.1-51.0); Hemoglobin 11.5 g/dl (14.0-18.0); Mean Corpuscular Hemoglobin 32.2 pg (25.0-34.0); Mean Corpuscular Hgb Conc 33.2 g/dL (32.0-36.0); Mean Corpuscular Volume 96.9 fL (80.0-100.0); Mean Platelet Volume 10.7 fL (9.4-12.4); Platelet Count 125 K/uL (130-400); Platelet Estimate Normal (Normal); RDW Coefficient of Variation 13.3 % (11.5-14.5); RDW Standard Deviation 48.1 fL (36.4-46.3); Red Blood Count 3.57 M/uL (4.63-6.08); White Blood Count 3.37 K/ul (4.8-10.8)
--- NOTE | 2022-04-12 07:03 | Electrocardiogram Report ---
Test Reason : Blood Pressure : / mmHG Vent. Rate : 056 BPM Atrial Rate : 056 BPM P-R Int : 128 ms QRS Dur : 074 ms QT Int : 440 ms P-R-T Axes : 073 064 -38 degrees QTc Int : 424 ms Sinus bradycardia with Premature atrial complexes Possible Left atrial enlargement Incomplete right bundle branch block Nonspecific T wave abnormality Abnormal ECG When compared with ECG of 11-APR-2022 05:58, Premature ventricular complexes are no longer Present Confirmed by Frankie Mei ([id number]) on 04/12/2022 7:03:38 AM Referred By: REFERRED SELF Confirmed By:Frankie Mei
[2022-04-12] MEDS: ATORVASTATIN 40 MG TAB PO SCH (08:25)
[2022-04-12] MEDS: CLOPIDOGREL BISULFATE 75 MG TAB PO SCH (08:26)
[2022-04-12] MEDS: lisinopril 10 MG TAB PO SCH (08:26)
[2022-04-12] MEDS: LEVOTHYROXINE SODIUM 100 MCG TABLET PO SCH (08:26)
[2022-04-12] MEDS: APIXABAN 5 MG TABLET PO SCH ×2 (08:27→20:35)
--- NOTE | 2022-04-12 10:23 | Electrocardiogram Report ---
Test Reason : Blood Pressure : / mmHG Vent. Rate : 100 BPM Atrial Rate : 330 BPM P-R Int : 000 ms QRS Dur : 082 ms QT Int : 360 ms P-R-T Axes : 000 055 214 degrees QTc Int : 464 ms Atrial flutter with variable A-V block Abnormal ECG When compared with ECG of 11-APR-2022 09:22, Atrial flutter has replaced Sinus rhythm Vent. rate has increased BY 44 BPM Inverted T waves have replaced nonspecific T wave abnormality in Lateral leads Confirmed by Ranjith Hampton ([id number]) on 04/12/2022 10:22:37 AM Referred By: REFERRED SELF Confirmed By:Ranjith Hampton
--- NOTE | 2022-04-12 12:09 | Cardiology Progress Note ---
Date of Service April 12, 2022 Assessment & Plan (1) Non-ST elevation GA (NSTEMI): (2) Atrial fibrillation with rapid ventricular response: (3) TAMIR (acute kidney injury): (4) PAD (peripheral artery disease): (5) COVID-19: Plan The patient is tolerating Eliquis. Unfortunately he is still having bursts of A. fib with rates in the 1 30-1 40 range. I understand the concern regarding lithium and bradycardia. I think the best option is a very low dose of beta- checo to see how he does. I started him on carvedilol 3.125 mg twice daily. I would not discharge him today. He needs to remain on the monitor and we will reassess tomorrow. Admission and Anticipated Discharge Date Admission Date: April 10, 2022 Subjective Spoke to patient's on the phone. She is in the room with him and he has no complaints and is eating lunch. Review of Systems Review of Systems: Review of Systems: See HPI for pertinent positives. All other 10 point review of systems are negative. Physical Exam Physical Exam: No exam was completed as per protocol due to isolation due to COVID. Results & Data ([facility]) Vital Signs (Past 12 Hours) Vital Signs Temp Pulse Pulse Resp BP Pulse Ox O2 Del Method 04/12/22 11:00 36.9 C 65 18 129/63 96 Room Air 04/12/22 08:00 Room Air 04/12/22 07:33 36.5 C 52 L 15 132/68 95 Room Air 04/12/22 06:37 62 04/12/22 03:26 36.7 C 60 16 119/64 96 Room Air 04/12/22 00:18 36.7 C 57 L 16 109/63 97 Room Air Laboratory Results Laboratory Results - last 24 hr 04/11/22 04/12/22 04/12/22 17:15 05:31 05:31 WBC 3.37 L RBC 3.57 L Hgb 11.5 L Hct 34.6 L MCV 96.9 MCH 32.2 MCHC 33.2 RDW Std Deviation 48.1 H RDW Coeff of Elliott 13.3 Plt Count 125 L MPV 10.7 Platelet Estimate Normal APTT 75.5 H* PTT Ratio 2.7 Sodium 136 Potassium 3.7 Chloride 108 H Carbon Dioxide 23 Anion Gap 5 BUN 19 Creatinine 0.80 Est Cr Clr Drug Dosing 47.1 Est GFR ( Amer) 99.2 Est GFR (Non-Af Amer) 85.6 BUN/Creatinine Ratio 23.8 H Glucose 92 Calcium 7.8 L Medications Administered Current Inpatient Medications Acetaminophen (Acetaminophen 325 Mg Tab) 650 mg PO Q4H PRN PRN Reason: Pain or Fever Stop: 05/10/22 15:36 Albuterol (Albuterol Hfa 8 Gm Inhaler) 2 puffs INH Q4H PRN PRN Reason: Shortness Of Breath Or Wheezing Stop: 05/10/22 15:14 Apixaban (Apixaban 5 Mg Tablet) 5 mg PO BID MARCOS Stop: 05/11/22 20:59 Last Admin: 04/12/22 08:27 Dose: 5 mg Atorvastatin Calcium (Atorvastatin 40 Mg Tab) 40 mg PO DAILY MARCOS Stop: 05/11/22 08:59 Last Admin: 04/12/22 08:25 Dose: 40 mg Carvedilol (Carvedilol 3.125 Mg Tab) 3.125 mg PO BID MARCOS Stop: 05/12/22 12:14 Clopidogrel Bisulfate (Clopidogrel Bisulfate 75 Mg Tab) 75 mg PO DAILY MARCOS Stop: 05/11/22 08:59 Last Admin: 04/12/22 08:26 Dose: 75 mg Levothyroxine Sodium (Levothyroxine Sodium 100 Mcg Tablet) 100 mcg PO DAILYBB MARCOS Stop: 05/13/22 06:29 Lisinopril (Lisinopril 10 Mg Tab) 10 mg PO DAILY MARCOS Stop: 05/11/22 08:59 Last Admin: 04/12/22 08:26 Dose: 10 mg [place]ml[place] Carbonate (K[place]mling Carbonate Slow Rel 300 Mg Tab) 300 mg PO HS MARCOS Stop: 05/10/22 20:59 Last Admin: 04/11/22 21:32 Dose: 300 mg Melatonin (Melatonin 3 Mg Tab) 3 mg PO HS PRN PRN Reason: Sleep Stop: 05/11/22 00:46 Last Admin: 04/11/22 21:24 Dose: 3 mg Nitroglycerin (Nitroglycerin Sl 0.4 Mg/Tab Tab) 0.4 mg SL UD PRN PRN Reason: Chest Pain Stop: 05/10/22 15:36 Ondansetron HCl (Ondansetron Inj 2 Mg/Ml 2 Ml Vial) 4 mg IV Q6H PRN PRN Reason: Nausea Stop: 05/10/22 15:36 Polyethylene Glycol (Polyethylene (Miralax) 17 Gm Pack) 17 gm PO DAILY PRN PRN Reason: Constipation Stop: 05/10/22 15:36
--- NOTE | 2022-04-12 12:37 | Hospitalist Progress Note ---
Date of Service April 12, 2022 Assessment & Plan (1) Non-ST elevation [place] (NSTEMI): (2) Atrial fibrillation with rapid ventricular response: (3) Acute kidney injury superimposed on CKD: (4) COVID-19: (5) PAD (peripheral artery disease): (6) COPD (chronic obstructive pulmonary disease): (7) Bipolar 1 disorder: Plan This is a 76-year-old male with PMH of COPD, PAD, hypertension, moderate mitral regurgitation, diastolic dysfunction, bipolar 1 disorder, hypothyroidism and ot her medical problems listed below who presents after feeling unwell for a few weeks of URI symptoms and was found to have COVID-19 infection, new onset atrial fibrillation with RVR, NSTEMI and TAMIR on CKD. New onset A fib with RVR Found to be in A fib in clinic with ECG showing A fib with RVR in 140s. Duration unclear. Converted to sinus bradycardia after 10mg IV bolus of diltiazem on presentation Patient has been in and out of atrial fibrillation since the hospitalization; ventricular rate in range of 120s to 140s. Sinus bradycardia otherwise. EchoEF of 60 to 65%; no significant wall motion abnormalities. Plan: -Given multiple episode of A. fib with RVR last night; patient is started on low-dose beta-checo with Coreg as per cardiology. -Started on Eliquis continue to monitor on telemetry. -Continue to monitor on telemetry. Elevated troponin likely secondary to demand ischemia No chest pain or shortness of breath on admission. High sensitive troponin around 100s; no significant delta. Echocardiogram as above Plan is to observe him for any symptoms. If he requires cardiac cath; [place] [facility] [place] Covid-19 infection O2 saturation 97% on room air. Over 1 week of generalized illness so no antiviral tx indicated. Continue supportive care. Isolation precautions A acute kidney injury Improvement in the creatinine after IV hydration. PAD H/o L common iliac artery and [place] external iliac [place] [facility] [place] Currently on aspirin and plavix COPD At baseline. Continue albuterol inhaler PRN Bipolar 1 disorder Continue lithium HS Hypothyroidism Continue levothyroxine DVT Ppx: Eliquis Code status: FULL PCP: Sam Dispo: Admitted to PCU Admission and Anticipated Discharge Date Admission Date: April 10, 2022 Subjective Patient seen and examined at bedside. He is comfortably lying in the bed; not in any distress. He denies fever, chills, palpitation, shortness of breath, chest pain or abdominal pain. Telemetry shows multiple episode of atrial fibrillation with ventricular rate in 130s to 140s. He received 10 mg of diltiazem for rapid ventricular rates as per cardiology last evening. Review of Systems Review of Systems: All systems reviewed & are unremarkable except as noted in Subjective Physical Exam Physical Exam: Constitutional: Awake, alert orient x3. Not in any distress. Appears thin. WD/WN, vitals as above, NAD, sitting up in bed, pleasant, conversing easily Respiratory: normal respiratory effort, lungs clear to auscultation, no wheeze, rales, rhonchi. Normal insp/exp effort, no accessory muscle use Cardiovascular: RRR, no murmur, no edema Vessels: no JVD or carotid bruit Chest: normal inspection of chest Abdomen: normal bowel sounds, soft, nontender, no hepatosplenomegaly Musculoskeletal: no cyanosis or clubbing, extremities motor strength 5/5 Skin: no rashes, warm and dry normal turgor Neurologic: PERRL, EOMI, accommodation nl, no face palsy, no dysarthria CN's II- XI intact bilaterally and moves all extremities Psychiatric: A+Ox3, euthymic affect Lymphatic: no cervical or axillary lymphadenopathy : deferred Results & Data Results & Data ([facility]) Vital Signs (Past 12 Hours) Vital Signs Temp Pulse Pulse Resp BP Pulse Ox O2 Del Method 04/12/22 11:00 36.9 C 65 18 129/63 96 Room Air 04/12/22 08:00 Room Air 04/12/22 07:33 36.5 C 52 L 15 132/68 95 Room Air 04/12/22 06:37 62 04/12/22 03:26 36.7 C 60 16 119/64 96 Room Air
[2022-04-12] MEDS: carvediloL 3.125 MG TAB PO SCH ×2 (13:21→20:34)
[2022-04-12] MEDS: MELATONIN 3 MG TAB PO PRN (20:34)
[2022-04-12] MEDS: LITHIUM CARBONATE SLOW REL 300 MG TAB PO SCH (20:35)
[2022-04-13] MEDS ORDERED: LEVOTHYROXINE SODIUM 100 MCG TABLET PO SCH (06:30)
[2022-04-13 06:58] LABS: BUN Creatinine Ratio 23.8 (10-20); Creatinine Clr Calc Pharmacy 46.6 ml/min; Est GFR (African American) 99.2 ml/min; Est GFR (Non-African American) 85.6 ml/min; Potassium 3.9 mmol/L (3.5-5.1)
[2022-04-13 07:01] LABS: Basophils # (manual) 0.05 K/uL (0-0.2); Basophils % (manual) 1 %; Echinocytes 1+; Hematocrit (blood only) 34.8 % (40.1-51.0); Hemoglobin 11.6 g/dl (14.0-18.0); Lymphocytes # (manual) 1.03 K/uL (1.2-3.4); Lymphocytes % (manual) 22 %; Mean Corpuscular Hgb Conc 33.3 g/dL (32.0-36.0); Mean Corpuscular Volume 96.1 fL (80.0-100.0); Monocytes # (manual) 0.33 K/uL (0.24-0.82); Monocytes % (manual) 7 %; Neutrophils # (manual) 3.29 K/uL (1.4-6.5); Neutrophils % (manual) 70 %; Platelet Count 130 K/uL (130-400); RDW Coefficient of Variation 13.3 % (11.5-14.5); RDW Standard Deviation 47.8 fL (36.4-46.3); Red Blood Count 3.62 M/uL (4.63-6.08)
[2022-04-13] MEDS: lisinopril 10 MG TAB PO SCH (08:52)
[2022-04-13] MEDS: ATORVASTATIN 40 MG TAB PO SCH (08:52)
[2022-04-13] MEDS: carvediloL 3.125 MG TAB PO SCH (08:52)
[2022-04-13] MEDS: APIXABAN 5 MG TABLET PO SCH (08:52)
[2022-04-13] MEDS: CLOPIDOGREL BISULFATE 75 MG TAB PO SCH (08:52)
--- NOTE | 2022-04-13 09:05 | Electrocardiogram Report ---
Test Reason : Blood Pressure : / mmHG Vent. Rate : 063 BPM Atrial Rate : 063 BPM P-R Int : 000 ms QRS Dur : 078 ms QT Int : 488 ms P-R-T Axes : 000 064 242 degrees QTc Int : 499 ms Atrial tachycardia replaed by profound sinus or junctiona bradycardia (starting with 6th beat) Diffuse Minor Nonspecific T wave abnormality Abnormal ECG When compared with ECG of 11-APR-2022 18:35, Atrial flutter no longer present HR has decreased markedly Nonspecific T wave abnormality has replaced inverted T waves in Lateral leads Confirmed by Ranjith Hampton ([id number]) on 04/13/2022 9:05:45 AM Referred By: REFERRED SELF Confirmed By:Ranjith Hampton
--- NOTE | 2022-04-13 10:52 | Cardiology Progress Note ---
Date of Service April 13, 2022 Assessment & Plan (1) Atrial fibrillation with rapid ventricular response: (2) TAMIR (acute kidney injury): (3) PAD (peripheral artery disease): (4) COVID-19: Plan The patient is tolerating Eliquis. Patient has received 3 doses of carvedilol and is tolerating it well without worsening bradycardia. He is noted to have a few brief runs of atrial fibrillation (each only a few seconds) however he remains asymptomatic (no palpitations, no angina) and the frequency and the duration of the episodes is much less on the carvedilol. I counseled patient that given his history, I would speculate that he has underlying coronary heart disease , however, in the absence of angina, would recommend trial of medical therapy without cardiac catheterization for now, with thoughts that it was his COVID related symptoms that prompted his presentation. Pt stable for discharge from a cardiac perspective. ASA discontinued. Continue [employer] clopidogrel. Eliquis 5 mg BID added Carvedilol 3.125 mg BID added. Continue [employer] atorvastatin, lisinpril, levothyroxine, and lithium. Plan for outpt Ziopatch monitor in about 2 weeks to be placed at [facility] which pt will wear for 7 days in follow up of arrhythmia burden. Keep cardio follow up as planned in May. Patient's outpt pharmacy open today from 11 am to 3 pm. Admission and Anticipated Discharge Date Admission Date: April 10, 2022 Subjective Patient seen in cardiology follow up. He feels well. He is seated in the bedside chair, accompanied by his spouse , Didier. He remains on COVID-19 related isolation precautions. Didier is not showing any signs of illness. Physical Exam Constitutional: + thin; no acute distress Respiratory: normal respiratory effort, lungs clear to auscultation Cardiovascular: Rate/Rhythm: regular rate and regular rhythm Heart Sounds: + murmur (1/6 SM ) Extremities: no edema Gastrointestinal (Abdomen): normal bowel sounds, soft, nontender, no hepatosplenomegaly Neurologic: PERRL, EOMI, accommodation nl, no face palsy, no dysarthria Results & Data ([facility]) Vital Signs (Past 12 Hours) Vital Signs Temp Pulse Pulse Resp BP Pulse Ox O2 Del Method 04/13/22 08:00 59 L 04/13/22 08:34 60 04/13/22 07:00 36.8 C 58 L 20 150/80 H 98 Room Air 04/13/22 03:23 36.5 C 52 L 16 118/78 98 Room Air 04/12/22 23:55 54 L Laboratory Results CBC 04/13/22 Range/Units 05:43 WBC 4.70 L (4.8-10.8) K/ul RBC 3.62 L (4.63-6.08) M/uL Hgb 11.6 L (14.0-18.0) g/dl Hct 34.8 L (40.1-51.0) % Plt Count 130 (130-400) K/uL Comprehensive Metabolic Panel 04/13/22 Range/Units 05:43 Sodium 136 (136-145) mmol/L Potassium 3.9 (3.5-5.1) mmol/L Chloride 109 H (98-107) mmol/L Carbon Dioxide 22 (21-32) mmol/L BUN 19 (6-23) mg/dl Creatinine 0.80 (0.6-1.4) mg/dl Glucose 112 H (70-99(Fasting)) mg/dl Calcium 8.0 L (8.5-10.1) mg/dl Diagnostic Findings EKG 04/12/22 and interpreted independently: AF with office to sinus bradycardia
--- NOTE | 2022-04-13 11:35 | Discharge Summary ---
Date of Service April 13, 2022 Admission HPI Per Admitting Provider This is a 76-year-old male with PMH of COPD, PAD, hypertension, moderate mitral regurgitation, diastolic dysfunction, bipolar 1 disorder, hypothyroidism and other medical problems listed below who presents after feeling unwell for a few weeks of URI symptoms. Endorsing congestion and productive cough over the last week as well as insomnia, decreased appetite and p.o. intake as well as diarrhea over the past few days. Last diarrhea 2 days ago. Also endorsing episode of dizziness 2 days ago but no fall or syncopal episode. No fever, chills, headaches, palpitations, chest pain or SOB. Was seen by PCP today and found to be hypotensive with tachycardia in the 140s found on EKG to be new onset atrial fibrillation. Was transferred via EMS to [facility] ED for further evaluation. Has history of 2D echo from Jan 2022 with EF 59%, moderate mitral regurgitation, moderate tricuspid regurgitation and moderate AV sclerosis. Admission Exam Per Admitting Provider NAD, well developed HEENT: Dry mucus membrane Lungs: CTA, no wheezing or crackles Cardiac: in Afib Abd: ND, NT, soft MSK: No LE edema Psych: AAOx3, normal affect Principal Diagnosis (1) Non-ST elevation AK (NSTEMI): (2) Atrial fibrillation with rapid ventricular response: (3) Acute kidney injury superimposed on CKD: (4) COVID-19: (5) PAD (peripheral artery disease): (6) COPD (chronic obstructive pulmonary disease): (7) Bipolar 1 disorde Discharge Exam Constitutional: Awake, alert orient x3. Not in any distress. Appears thin. WD/WN, vitals as above, NAD, sitting up in bed, pleasant, conversing easily Respiratory: normal respiratory effort, lungs clear to auscultation, no wheeze, rales, rhonchi. Normal insp/exp effort, no accessory muscle use Cardiovascular: RRR, no murmur, no edema Vessels: no JVD or carotid bruit Chest: normal inspection of chest Abdomen: normal bowel sounds, soft, nontender, no hepatosplenomegaly Musculoskeletal: no cyanosis or clubbing, extremities motor strength 5/5 Skin: no rashes, warm and dry normal turgor Neurologic: PERRL, EOMI, accommodation nl, no face palsy, no dysarthria CN's II- XI intact bilaterally and moves all extremities Psychiatric: A+Ox3, euthymic affect Lymphatic: no cervical or axillary lymphadenopathy : deferred Discharge Data Allergies Allergy/AdvReac Type Severity Reaction Status Date / Time No Known Allergies Allergy Unverified 12/12/16 18:03 Consultations 04/10/22 13:21 Consult Cardiology Stat 04/10/22 13:43 ED Decision to Admit Stat Hospital Course (1) Non-ST elevation AK (NSTEMI): (2) Atrial fibrillation with rapid ventricular response: (3) Acute kidney injury superimposed on CKD: (4) COVID-19: (5) PAD (peripheral artery disease): (6) COPD (chronic obstructive pulmonary disease): (7) Bipolar 1 disorder: Plan This is a 76-year-old male with PMH of COPD, PAD, hypertension, moderate mitral regurgitation, diastolic dysfunction, bipolar 1 disorder, hypothyroidism and other medical problems listed below who presents after feeling unwell for a few weeks of URI symptoms and was found to have COVID-19 infection, new onset atrial fibrillation with RVR, NSTEMI and TAMIR on CKD. For new onset A. fib with RVR, patient was monitored on telemetry. He had mul tiple episode of A. fib with ventricular rate in 130s to 140s; he was sinus bradycardic in between. Cardiology was consulted; recommended to start the patient on Eliquis. He was already on aspirin and Plavix. Aspirin was stopped due to increased risks of bleeding with addition of Eliquis. Low-dose beta- checo with Coreg 3.125 was added for rate control. Cardiology recommended patient to undergo outpatient Zio patch monitor in about 2 weeks to be placed as Flo[employer] wood which the patient will wear for 7 days. He also has a outpatient appointment with cardiology in May. His echo during the hospitalization showed EF of 60 to 65% with no significant wall motion abnormalities. Patient was also found to have elevated troponin with no significant delta gap. He did not have any symptoms of chest pain or shortness of breath during the admission. No further cardiac work-up was done for it. He was also found to have COVID-19 infection. He saturated in room air throughout his hospitalization. No antiviral treatment or dexamethasone was given. His creatinine was slightly higher on admission compared to his baseline. It improved with IV hydration and it was back to his baseline. Patient was discharged home with instruction to follow-up with his primary care doctor next week. The prescription were sent to his pharmacy. Total Time Total Time Spent Total Time Spent (In Minutes): 40 Total Time Includes: Examination of the Patient, Discharge Planning, Medication Reconciliation, Communication With Other Providers and Other Discharge Plan Discharge Items Patient Disposition: Home - Self-Care Reason For Visit: NEW ONSET AFIB WITH RVR,NSTEMI Discharge Diagnosis: A. fib with RVR NSTEMI COVID-19 infection Activity: Resume your previous activity Non-emergency contact: Primary Care Provider Call non-emergency contact if: you have any medication questions and your symptoms worsen Follow-up/Referrals: Francisco Javier Vargas MD [Primary Care Provider] - Diet: Regular Addtl Attending Provider Instructions: You were admitted to the hospital and were found to have irregular heart rhythm called atrial fibrillation. You are started on following medication for it 1) Coreg 3.125 mg twice daily 2) Eliquis( blood thinner) 5 mg twice daily Please STOP TAKING ASPIRIN as you are started on a blood thinner. Continue Plavix along with other medications. You were also found to have COVID-19 infection. You were not found to have any pneumonia. Please continue isolation for 5 more days and wear masks around people. You have appointment with your primary care doctor on at 10:20 AM. You will need outpatient Zio patch monitor in 2 weeks to be placed at [facility]. You have follow-up with cardiology in June 08, 2022 at 3 PM. Pending Studies at Discharge: No Stand-Alone Forms: My [facility] [employer], Smoking Cessation Medications and DC Order Prescriptions: New Eliquis 5 mg tablet 5 mg PO BID Qty: 60 0RF carvedilol 3.125 mg Tablet 3.125 mg PO BID Qty: 60 0RF Continued atorvastatin 40 mg tablet 40 mg PO DAILY lithium carbonate 300 mg tablet extended release 300 mg PO HS clopidogrel 75 mg tablet 75 mg PO DAILY levothyroxine 100 mcg tablet 100 mcg PO DAILY lisinopril 10 mg tablet 10 mg PO DAILY albuterol sulfate 90 mcg/actuation HFA aerosol inhaler 2 puff INHALATION Q4H PRN (Reason: Shortness Of Breath Or Wheezing) Discontinued aspirin 81 mg Capsule 81 mg PO DAILY Discharge Orders: Discharge Order (Routine); Ordered 04/13/22 Ordered By: Jordy Bridges Admission Data Admit Date/Time: 04/10/22 13:48 Attending Provider: Jordy Bridges Admit Provider: Susi Aaron Primary Care Provider: Francisco Javier Vargsa Other Providers: Timo Renee ; Susi Aaron
== END 2022-04-13 13:39 | disposition home or self-care (01) | DRG 280 ==
LOC: ED 11:28 → SUATTDRO 13:48 → 2E 13:48

== ENCOUNTER 2022-09-11 18:53 | Observation (INO) ==
--- NOTE | 2022-09-11 19:04 | Emergency Department Note ---
History of Present Illness General Chief complaint: Illness Stated complaint: ILLNESS Time Seen by Provider: 09/11/22 18:54 Source: EMS History of Present Illness Provider complaint: Illness lethargy 76-year-old male presents emergency department via EMS for illness and lethargy. EMS reports that the family reported that the patient was increasingly lethargic. He has a history of bipolar and he states that the patient has not been eating or drinking. Per EMS the patient was reporting chest pain on arrival however the patient reports no current chest pain. He reports no acute complaints and states he feels fine. No headache nausea vomiting diarrhea abdo dean pain fever or cough. EMS states that the patient's family reports that he is being becoming increasing lethargic over the last few weeks and they state that his should be coming in shortly to provide more history. Home Medications Medication Instructions Recorded Confirmed Type albuterol sulfate 90 mcg/actuation 2 puff inhalation Q4H PRN 04/10/22 09/11/22 History aerosol inhaler Shortness Of Breath Or Wheezing atorvastatin 40 mg tablet 40 mg PO DAILY 04/10/22 09/11/22 History clopidogrel 75 mg tablet 75 mg PO DAILY 04/10/22 09/11/22 History levothyroxine 100 mcg tablet 100 mcg PO DAILY 04/10/22 09/11/22 History lisinopril 10 mg tablet 10 mg PO DAILY 04/10/22 09/11/22 History lithium carbonate 300 mg 300 mg PO HS 04/10/22 09/11/22 History tablet,extended release apixaban 5 mg tablet (Eliquis) 5 mg PO BID #60 tabs 04/11/22 09/11/22 Rx carvedilol 3.125 mg tablet 3.125 mg PO BID #60 tabs 04/13/22 09/11/22 Rx olanzapine 5 mg tablet (Zyprexa) 5 mg PO HS 09/11/22 09/11/22 History vitamin B complex 1 tab PO DAILY 09/11/22 09/11/22 History Allergies Allergy/AdvReac Type Severity Reaction Status Date / Time No Known Allergies Allergy Verified 09/11/22 19:42 Past Med/Surg History Medical History Acute kidney injury superimposed on CKD Atrial fibrillation with rapid ventricular response Bipolar 1 disorder COPD (chronic obstructive pulmonary disease) COVID-19 Diastolic dysfunction Non-ST elevation LA (NSTEMI) PAD (peripheral artery disease) Surgical History History of intravascular stent placement L common iliac artery and left external iliac artery stenting 12/14/[address] Walker. Family History Other Cancer Diabetes Social History Smoking Status: Former smoker Tobacco Type: Cigarettes Hx Alcohol Use: Yes Alcohol Intake Frequency: Monthly or Less Hx Substance Use: No Preferred Language: Uzbek Communication Ability: Effective Milk Of Lime Slaker Required: No Beliefs That Will Affect Care: None marital status: Current Living Situation: Spouse Feels Safe at Home: Yes Assistive Devices: Cane Physical Exam Vital Signs Vital Signs - 24 hr 09/11/22 19:01 09/11/22 20:11 09/11/22 23:06 Temperature 36.6 C Temperature Source Oral Pulse Rate 119 H 66 58 L Respiratory Rate 28 H 16 Respiratory Depth Normal Blood Pressure 132/74 127/65 Blood Pressure Mean 93 85 Pulse Oximetry 94 Oxygen Delivery Method Room Air Sepsis Recent Fever Within 48 Hours No Sepsis New/Unexplained Change in Mental Status Yes Sepsis Action Taken by Nursing Physician Notified Physical Exam GENERAL: Patient appears very thin. HENT: Exam performed. - Head: Normocephalic and atraumatic. - Right Ear: External ear normal. No mastoid erythema - Left Ear: External ear normal. No mastoid erythema - Mouth/Throat: Dry mucous membranes. No trismus in the jaw. No dental abscesses or uvula swelling. No oropharyngeal exudate or tonsillar abscesses. EYES: Conjunctivae and EOM are normal. Pupils are equal, round, and reactive to light. Right eye exhibits no discharge. Left eye exhibits no discharge. No scleral icterus. NECK: Normal range of motion. Neck supple. No JVD present.No tracheal deviation and normal range of motion present. CV: Normal rate, irregular rhythm, normal heart sounds and intact distal pulses. There is no peripheral edema. Palpable radial pulses bue. PULM/CHEST: Effort normal and breath sounds normal. No respiratory distress. No stridor. He has no wheezes. He has no rales. ABD: The abdomen is soft.He has no distension. There is no tenderness. There is no rebound, no guarding. MUSC/SKEL: Normal range of motion. There is no peripheral edema, tenderness or deformity. NEURO: Motor and sensation grossly intact no cranial nerve deficit. PSYCH: No suicidal or homicidal ideation. Course Course 1853: The patient was evaluated in room C11. A complete history and physical exam was performed Administered Medications Sodium Chloride (Nss 1000ml) 1,000 mls @ 80 mls/hr IV .[id number] ONE Stop: 09/12/22 09:32 Last Admin: 09/11/22 23:15 Dose: Not Given Documented By: ENS Discontinued Medications Sodium Chloride (Nss 1000ml) 1,000 mls @ 80 mls/hr IV .[id number] MARCOS Stop: 10/11/22 19:14 Last Admin: 09/11/22 20:05 Dose: 80 mls/hr Documented By: MEENU Lorazepam (Lorazepam 1 Mg Tab) 0.5 mg SL NOW STA Stop: 09/11/22 19:20 Last Admin: 09/11/22 19:25 Dose: 0.5 mg Documented By: MEENU Medical Decision Making Laboratory Data Attestation: I reviewed the patient's lab results. 09/11/22 19:13 09/11/22 19:13 Lab Results 09/11/22 09/11/22 09/11/22 Range/Units 19:13 19:13 19:13 WBC 9.62 (4.8-10.8) K/ul RBC 4.05 L (4.70-6.10) M/uL Hgb 13.2 L (14.0-18.0) g/dl Hct 39.5 L (42.0-52.0) % MCV 97.5 (80.0-100.0) fL MCH 32.6 (25.0-34.0) pg MCHC 33.4 (32.0-36.0) g/dL RDW Std Deviation 49.5 H (36.4-46.3) fL RDW Coeff of Elliott 13.7 (11.5-14.5) % Plt Count 251 (130-400) K/uL MPV 9.6 (9.4-12.4) fL Immature Gran % (Auto) 0.5 % Neut % (Auto) 80.1 % Lymph % (Auto) 9.1 % [place]so[place] % (Auto) 9.4 % Eos % (Auto) 0.5 % Baso % (Auto) 0.4 % Neut # (Auto) 7.70 H (1.40-6.50) K/uL Lymph # (Auto) 0.88 L (1.2-3.4) K/uL [place] # (Auto) 0.90 H (0.11-0.59) K/uL Eos # (Auto) 0.05 (0-0.50) K/uL Baso # (Auto) 0.04 (0-0.2) K/uL Immature Gran # (Auto) 0.05 (0.01-0.20) K/uL PT (9.0-12.0) Seconds INR (0.9-1.1) APTT (21.0-31.0) Seconds PTT Ratio VBG pH (7.36-7.41) VBG pCO2 (38-50) mmHg VBG pO2 mmHg VBG HCO3 mmol/L VBG O2 Saturation % VBG Base Excess mEq/L Sodium 135 L (136-145) mmol/L Potassium 4.4 (3.5-5.1) mmol/L Chloride 104 (98-107) mmol/L Carbon Dioxide 26 (21-32) mmol/L Anion Gap 5 (3-11) BUN 28 H (6-23) mg/dl Creatinine 1.11 (0.6-1.4) mg/dl Est Cr Clr Drug Dosing Not Reportable Est GFR ( Amer) 73.3 ml/min Est GFR (Non-Af Amer) 63.3 ml/min BUN/Creatinine Ratio 25.2 H (10-20) Glucose 204 H (70-99(Fasting)) mg/dl Calcium 8.9 (8.6-10.3) mg/dl Magnesium 2.1 (1.7-2.4) mg/dl Troponin I High Sens 34.8 H (0-20) pg/ml Lipase 20 (11-82) U/L TSH (0.300-4.500) uIu/ml Free T4 (0.61-1.60) ng/dl [place] < 0.1 L (0.6-1.2) mmol/L SARS-CoV-2 (PCR) (Negative) Influenza Type A (PCR) (Neg) Influenza Type B (PCR) (Neg) RSV (RT-PCR) (Neg) 09/11/22 09/11/22 09/11/22 Range/Units 19:13 19:27 Unknown WBC (4.8-10.8) K/ul RBC (4.70-6.10) M/uL Hgb (14.0-18.0) g/dl Hct (42.0-52.0) % MCV (80.0-100.0) fL MCH (25.0-34.0) pg MCHC (32.0-36.0) g/dL RDW Std Deviation (36.4-46.3) fL RDW Coeff of Elliott (11.5-14.5) % Plt Count (130-400) K/uL MPV (9.4-12.4) fL Immature Gran % (Auto) % Neut % (Auto) % Lymph % (Auto) % [place]ledso[place] % (Auto) % Eos % (Auto) % Baso % (Auto) % Neut # (Auto) (1.40-6.50) K/uL Lymph # (Auto) (1.2-3.4) K/uL [place] # (Auto) (0.11-0.59) K/uL Eos # (Auto) (0-0.50) K/uL Baso # (Auto) (0-0.2) K/uL Immature Gran # (Auto) (0.01-0.20) K/uL PT 11.1 (9.0-12.0) Seconds INR 1.0 (0.9-1.1) APTT 28.4 (21.0-31.0) Seconds PTT Ratio 1.0 VBG pH 7.38 (7.36-7.41) VBG pCO2 43 (38-50) mmHg VBG pO2 35 mmHg VBG HCO3 25 mmol/L VBG O2 Saturation 62.4 % VBG Base Excess 0 mEq/L Sodium (136-145) mmol/L Potassium (3.5-5.1) mmol/L Chloride (98-107) mmol/L Carbon Dioxide (21-32) mmol/L Anion Gap (3-11) BUN (6-23) mg/dl Creatinine (0.6-1.4) mg/dl Est Cr Clr Drug Dosing Est GFR ( Amer) ml/min Est GFR (Non-Af Amer) ml/min BUN/Creatinine Ratio (10-20) Glucose (70-99(Fasting)) mg/dl Calcium (8.6-10.3) mg/dl Magnesium (1.7-2.4) mg/dl Troponin I High Sens (0-20) pg/ml Lipase (11-82) U/L TSH (0.300-4.500) uIu/ml Free T4 (0.61-1.60) ng/dl [place] (0.6-1.2) mmol/L SARS-CoV-2 (PCR) NEGATIVE (Negative) Influenza Type A (PCR) Negative (Neg) Influenza Type B (PCR) Negative (Neg) RSV (RT-PCR) Negative (Neg) 09/11/22 Range/Units Unknown WBC (4.8-10.8) K/ul RBC (4.70-6.10) M/uL Hgb (14.0-18.0) g/dl Hct (42.0-52.0) % MCV (80.0-100.0) fL MCH (25.0-34.0) pg MCHC (32.0-36.0) g/dL RDW Std Deviation (36.4-46.3) fL RDW Coeff of Elliott (11.5-14.5) % Plt Count (130-400) K/uL MPV (9.4-12.4) fL Immature Gran % (Auto) % Neut % (Auto) % Lymph % (Auto) % [place] % (Auto) % Eos % (Auto) % Baso % (Auto) % Neut # (Auto) (1.40-6.50) K/uL Lymph # (Auto) (1.2-3.4) K/uL [place] # (Auto) (0.11-0.59) K/uL Eos # (Auto) (0-0.50) K/uL Baso # (Auto) (0-0.2) K/uL Immature Gran # (Auto) (0.01-0.20) K/uL PT (9.0-12.0) Seconds INR (0.9-1.1) APTT (21.0-31.0) Seconds PTT Ratio VBG pH (7.36-7.41) VBG pCO2 (38-50) mmHg VBG pO2 mmHg VBG HCO3 mmol/L VBG O2 Saturation % VBG Base Excess mEq/L Sodium (136-145) mmol/L Potassium (3.5-5.1) mmol/L Chloride (98-107) mmol/L Carbon Dioxide (21-32) mmol/L Anion Gap (3-11) BUN (6-23) mg/dl Creatinine (0.6-1.4) mg/dl Est Cr Clr Drug Dosing Est GFR ( Amer) ml/min Est GFR (Non-Af Amer) ml/min BUN/Creatinine Ratio (10-20) Glucose (70-99(Fasting)) mg/dl Calcium (8.6-10.3) mg/dl Magnesium (1.7-2.4) mg/dl Troponin I High Sens (0-20) pg/ml Lipase (11-82) U/L TSH 12.593 H (0.300-4.500) uIu/ml Free T4 0.93 (0.61-1.60) ng/dl [place] (0.6-1.2) mmol/L SARS-CoV-2 (PCR) (Negative) Influenza Type A (PCR) (Neg) Influenza Type B (PCR) (Neg) RSV (RT-PCR) (Neg) Imaging Data Attestation: I personally reviewed and interpreted this imaging study as follows: My Impression: Chest x-ray: No change from the x-ray in March 2022 Radiologist's Impression: Chest X-Ray 09/11/22 19:03 XR chest 1V portable HISTORY: Chest pain, nonspecific COMPARISON: Chest 04/10/2022. FINDINGS: The lungs are clear. Cardiac silhouette is normal in size. No pleural effusions. No pneumothorax. The lungs remain hyperexpanded. IMPRESSION: No significant change compared to the prior study. No acute process. ACT 112: Negative or not required by law. Electronically signed by: Charly Woods M.D. 09/11/2022 8:[address] 09/11/22 19:[address] DOSE: 691.05 mGy.cm HISTORY: Altered mental status. TECHNIQUE: Multiaxial CT images of the head were performed without the use of intravenous contrast. Automated exposure control was utilized for this study. A dose lowering technique was utilized adhering to the principles of ALARA. Comparison: None. Findings: Mild mucosal thickening within the left maxillary sinus. The mastoid air cells are clear. The calvarium and skull base are intact. There is no mass, hematoma, midline shift, acute infarct. White matter hypodensity is nonspecific but suggestive of microvascular ischemic change. The ventricles and sulci demonstrate mild age-related involutional changes. Bilateral basal ganglia calcifications are noted. Impression: No acute intracranial abnormality. Atrophy and microvascular ischemic changes. ACT 112: Negative or not required by law. Electronically signed by: Charly Woods M.D. 09/11/2022 8:05 PM ECG Data Attestation: I personally reviewed and interpreted this ECG as follows: Indication: + chest pain Rate (beats per minute): 121 Rhythm: + atrial fibrillation ECG Intervals/blocks: + Normal QRS and + Normal QT-c ECG ST segments: + Normal ST segments MDM Narrative Cardiac monitoring: An order was placed for continuous cardiac monitoring. The monitor shows a rate of 110 with atrial fibrilation rhythm interpreted by me Family present at bedside. They stated that the patient was feeling manic over the last few days but today the patient still reporting chest pain and then had a syncopal episode. Vital signs stable. CT of the head within normal limits. Chest x-ray within normal limits. Labs show mildly elevated troponin. Mild dehydration. [facility] elevated troponin and syncope and symptoms. Dr. Cruz notified. Impression & Plan Syncope, Elevated troponin Discharge Plan Visit Data Chief Complaint: Illness Stated Complaint: ILLNESS ED Provider: Eduard Alberts Discharge Problem: Syncope, Elevated troponin Patient Disposition: Admitted As Inpatient Forms Stand Alone Forms: My [facility] Prescriptions Prescriptions: No Action olanzapine [Zyprexa] 5 mg Tablet 5 mg PO HS vitamin B complex Tablet 1 tab PO DAILY Rx Instructions: CUT TAB IN 1/2, TOO HARD TO SWALLOW WHOLE. atorvastatin 40 mg tablet 40 mg PO DAILY lithium carbonate 300 mg tablet extended release 300 mg PO HS clopidogrel 75 mg tablet 75 mg PO DAILY levothyroxine 100 mcg tablet 100 mcg PO DAILY lisinopril 10 mg tablet 10 mg PO DAILY albuterol sulfate 90 mcg/actuation HFA aerosol inhaler 2 puff INHALATION Q4H PRN (Reason: Shortness Of Breath Or Wheezing) Eliquis 5 mg tablet 5 mg PO BID Qty: 60 0RF carvedilol 3.125 mg Tablet 3.125 mg PO BID Qty: 60 0RF Referrals Referrals: Francisco Javier Vargas MD [Primary Care Provider] -
[2022-09-11] MEDS ORDERED: SODIUM CHLORIDE 0.9% 1000ML 1,000 ML IV SCH (19:15)
[2022-09-11] MEDS ORDERED: LORazepam 1 MG TAB SL STA (19:19)
[2022-09-11 19:37] LABS: Basophils # (auto) 0.04 K/uL (0-0.2); Basophils % (auto) 0.4 %; Eosinophils # (auto) 0.05 K/uL (0-0.50); Eosinophils % (auto) 0.5 %; Hematocrit (blood only) 39.5 % (42.0-52.0); Hemoglobin 13.2 g/dl (14.0-18.0); Immature Granulocytes # (auto) 0.05 K/uL (0.01-0.20); Immature Granulocytes % (auto) 0.5 %; Lymphocytes # (auto) 0.88 K/uL (1.2-3.4); Lymphocytes % (auto) 9.1 %; Mean Corpuscular Hemoglobin 32.6 pg (25.0-34.0); Mean Corpuscular Hgb Conc 33.4 g/dL (32.0-36.0); Mean Corpuscular Volume 97.5 fL (80.0-100.0); Mean Platelet Volume 9.6 fL (9.4-12.4); Monocytes % (auto) 9.4 %; Neutrophils % (auto) 80.1 %; Platelet Count 251 K/uL (130-400); RDW Coefficient of Variation 13.7 % (11.5-14.5); RDW Standard Deviation 49.5 fL (36.4-46.3); Red Blood Count 4.05 M/uL (4.70-6.10); White Blood Count 9.62 K/ul (4.8-10.8)
[2022-09-11 19:46] LABS: Base Excess VBG 0 mEq/L; HCO3 VBG 25 mmol/L; Oxygen Saturation VBG 62.4 %; PCO2 VBG 43 mmHg (38-50); PO2 VBG 35 mmHg; pH VBG 7.38 (7.36-7.41)
[2022-09-11 19:56] LABS: Anion Gap 5 (3-11); BUN Creatinine Ratio 25.2 (10-20); Blood Urea Nitrogen 28 mg/dl (6-23); Calcium 8.9 mg/dl (8.6-10.3); Carbon Dioxide 26 mmol/L (21-32); Chloride 104 mmol/L (98-107); Est GFR (African American) 73.3 ml/min; Est GFR (Non-African American) 63.3 ml/min; Glucose 204 mg/dl (70-99(Fasting)); Lipase 20 U/L (11-82); Magnesium 2.1 mg/dl (1.7-2.4); Potassium 4.4 mmol/L (3.5-5.1); Sodium 135 mmol/L (136-145)
[2022-09-11 19:57] LABS: Troponin I High Sensitivity 34.8 pg/ml (0-20)
[2022-09-11 20:01] LABS: Partial Thromboplastin Time 28.4 Seconds (21.0-31.0); Prothrombin Time 11.1 Seconds (9.0-12.0)
--- NOTE | 2022-09-11 20:07 | CT Scan Report ---
HEAD CT NONCONTRAST CT DOSE: 691.05 mGy.cm HISTORY: Altered mental status. TECHNIQUE: Multiaxial CT images of the head were performed without the use of intravenous contrast. A utomated exposure control was utilized for this study. A dose lowering technique was utilized adheri ng to the principles of ALARA. Comparison: None. Findings: Mild mucosal thickening within the left maxillary sinus. The mastoid air cells are clear. T he calvarium and skull base are intact. There is no mass, hematoma, midline shift, acute infarct. Whi te matter hypodensity is nonspecific but suggestive of microvascular ischemic change. The ventricles and sulci demonstrate mild age-related involutional changes. Bilateral basal ganglia calcifications a re noted. Impression: No acute intracranial abnormality. Atrophy and microvascular ischemic changes. ACT 112: Negative or not required by law. Electronically signed by: Charly Woods M.D. 09/11/2022 8:05 PM
--- NOTE | 2022-09-11 20:12 | XRay Report ---
XR chest 1V portable HISTORY: Chest pain, nonspecific COMPARISON: Chest 04/10/2022. FINDINGS: The lungs are clear. Cardiac silhouette is normal in size. No pleural effusions. No pneumot horax. The lungs remain hyperexpanded. IMPRESSION: No significant change compared to the prior study. No acute process. ACT 112: Negative or not required by law. Electronically signed by: Charly Woods M.D. 09/11/2022 8:10 PM
[2022-09-11] MEDS ORDERED: SODIUM CHLORIDE 0.9% 1000ML 1,000 ML IV ONE (21:04)
[2022-09-11 21:07] LABS: Influenza A virus by PCR Negative (Neg); Influenza B virus by PCR Negative (Neg); RSV by PCR Negative (Neg); SARS CoV2 RNA(COVID-19) Ceph NEGATIVE (Negative)
[2022-09-11 21:55] LABS: Thyroid Stimulating Hormone 12.593 uIu/ml (0.300-4.500)
[2022-09-11 22:29] LABS: T4 Free Thyroxine 0.93 ng/dl (0.61-1.60)
--- NOTE | 2022-09-11 23:02 | History & Physical Report ---
Date of Service September 11, 2022 Assessment & Plan (1) Chest pain: Plan: with troponin elevation Possibly related to anxiety Patient tachycardic upon ER arrival. Transient encephalopathy possibly from mild clinical dehydration given hemoconcentration on blood work chronic diastolic heart failure, patient on the dry side hx PAF, rate currently controlled on Eliquis valvular heart disease (moderate MR/mild to moderate TR), pulmonary hypertension PVD status post stent HTN, stable hyperlipidemia, on statin Rx COPD, stable lung status hypothyroidism, elevated TSH with normal free T4 bipolar disorder, suboptimal chronic anemia, better than baseline secondary hemoconcentration Hyperglycemia likely secondary to prediabetes, hemoglobin A1c of 5.28 March 2022 past tobacco abuse OBS PCU Follow troponin Continue home antiplatelet Rx for CAD prevention TTE for progression Cardiology consult Re: Chest pain N.p.o. until patient seen by cardiology in anticipation of ischemic work-up Hold patient Eliquis until patient seen by cardiology. Psychiatry evaluation Re: Suboptimal mood disorder as per patient family request DVT prophylaxis. Resume Eliquis if okay with cardiology Full code Patient requesting updates from providers. Ms. Didier Weiss, contact #[phone]. Text document was generated using [employer] voice recognition software. It may contain grammatical or spelling errors. Kindly contact undersigned for clarification of any documentation item in question. History of Present Illness Chief Complaint: Chest pain, altered mental status as per family Primary Care Provider: Francisco Javier Vargas MD History obtained from patient, family, and records. Medical history significant for chronic diastolic heart failure (EF 60 to 65%, TTE 2021 ), PAF on Eliquis, valvular heart disease (moderate MR/mild to moderate TR), pulmonary hypertension, PVD status post stent, HTN, hyperlipidemia, COPD, hypothyroidism, bipolar disorder, chronic anemia (baseline hemoglobin of 11), past tobacco abuse. Last confinement March 2022 for new onset A-fib, NSTEMI, and COVID-19 illness . Patient's discharged on low-dose Coreg and Eliquis. Outpatient pharmacologic nuclear stress test was negative. Patient family worried about patient's bipolar disorder in the last few months. Patient with episodic psychosis, out of his mind and barely sleeping as per family. Verbally abusive to and paranoid. Police had to be called to patient's home because of patient's uncontrolled beha vior. Concerns about medication compliance as per family. Patient denies suicidality. Patient seen by [facility] psychiatry provider last month for follow-up evaluation of bipolar disorder. Patient instructed to continue lithium 300 mg at bedtime. Patient nightly Abilify switched to Zyprexa. Vague improvement on regimen as per family. Patient seen overwhelmed today, keeping busy with his Visterra. Not eating a lot. Patient later on noted to be lethargic. Blood pressure noted to be low at home. Transient substernal pain reminiscent of confinement in March 2022. Patient denies headache or syncope. Transient feeling of being weak all over. Improved mentation after IVF administration at the ER. Medical History as above Surgical History : Lower extremity artery thrombectomy Family History : DM, mood disorder Personal/Social history : Past tobacco abuse, EtOH intake, Visterra Allergies Allergy/AdvReac Type Severity Reaction Status Date / Time No Known Allergies Allergy Verified 09/11/22 19:42 Home Medications Medication Instructions Recorded Confirmed Type albuterol sulfate 90 mcg/actuation 2 puff inhalation Q4H PRN 04/10/22 09/11/22 History aerosol inhaler Shortness Of Breath Or Wheezing atorvastatin 40 mg tablet 40 mg PO DAILY 04/10/22 09/11/22 History clopidogrel 75 mg tablet 75 mg PO DAILY 04/10/22 09/11/22 History levothyroxine 100 mcg tablet 100 mcg PO DAILY 04/10/22 09/11/22 History lisinopril 10 mg tablet 10 mg PO DAILY 04/10/22 09/11/22 History lithium carbonate 300 mg 300 mg PO HS 04/10/22 09/11/22 History tablet,extended release apixaban 5 mg tablet (Eliquis) 5 mg PO BID #60 tabs 04/11/22 09/11/22 Rx carvedilol 3.125 mg tablet 3.125 mg PO BID #60 tabs 04/13/22 09/11/22 Rx olanzapine 5 mg tablet (Zyprexa) 5 mg PO HS 09/11/22 09/11/22 History vitamin B complex 1 tab PO DAILY 09/11/22 09/11/22 History Past Med/Surg History Medical History Acute kidney injury superimposed on CKD Atrial fibrillation with rapid ventricular response Bipolar 1 disorder COPD (chronic obstructive pulmonary disease) COVID-19 Diastolic dysfunction Non-ST elevation IN (NSTEMI) PAD (peripheral artery disease) Surgical History History of intravascular stent placement L common iliac artery and left external iliac artery stenting 12/14/[address] Walker. Family History Other Cancer Diabetes Social History Smoking Status: Light tobacco smoker Tobacco Type: Cigarettes Hx Alcohol Use: No Hx Substance Use: No Preferred Language: Cook Islander Communication Ability: Effective Drier Transfer Car Operator Required: No Beliefs That Will Affect Care: None marital status: Current Living Situation: Spouse Other Information That Helps Us Care for You: No Feels Safe at Home: Yes Safety Concerns: Feels Safe At This Time Assistive Devices: Denture - Upper Review of Systems Review of Systems: As per HPI, all other systems reviewed and negative Physical Exam Physical Exam: GENERAL: Comfortable, pleasant, underweight, no respiratory distress SKIN: Pallor, warm HEENT: Pale palpebral conjunctivae, no ptosis, dry buccal mucosa NECK : Supple, no tenderness CHEST : Decreased breath sounds, no tenderness HEART : irregular, no obvious murmurs ABDOMEN: no distention, nontender EXTREMITIES : No LE swelling/tenderness, no other conspicuous deformities noted NEUROLOGIC : Coherent, no facial asymmetry, no other gross focality Results & Data Results & Data Vital Signs (Past 12 Hours) Vital Signs Temp Pulse Resp BP Pulse Ox O2 Del Method 09/11/22 20:11 66 16 127/65 09/11/22 19:01 36.6 C 119 H 28 H 132/74 94 Room Air Laboratory Results Laboratory Results WBC 9.62 K/ul (4.8-10.8) 09/11/22 19:13 RBC 4.05 M/uL (4.70-6.10) L 09/11/22 19:13 Hgb 13.2 g/dl (14.0-18.0) L 09/11/22 19:13 Hct 39.5 % (42.0-52.0) L 09/11/22 19:13 MCV 97.5 fL (80.0-100.0) 09/11/22 19:13 MCH 32.6 pg (25.0-34.0) 09/11/22 19:13 MCHC 33.4 g/dL (32.0-36.0) 09/11/22 19:13 RDW Std Deviation 49.5 fL (36.4-46.3) H 09/11/22 19:13 RDW Coeff of Elliott 13.7 % (11.5-14.5) 09/11/22 19:13 Plt Count 251 K/uL (130-400) 09/11/22 19:13 MPV 9.6 fL (9.4-12.4) 09/11/22 19:13 Immature Gran % (Auto) 0.5 % 09/11/22 19:13 Neut % (Auto) 80.1 % 09/11/22 19:13 Lymph % (Auto) 9.1 % 09/11/22 19:13 [place] % (Auto) 9.4 % 09/11/22 19:13 Eos % (Auto) 0.5 % 09/11/22 19:13 Baso % (Auto) 0.4 % 09/11/22 19:13 Neut # (Auto) 7.70 K/uL (1.40-6.50) H 09/11/22 19:13 Lymph # (Auto) 0.88 K/uL (1.2-3.4) L 09/11/22 19:13 [place] # (Auto) 0.90 K/uL (0.11-0.59) H 09/11/22 19:13 Eos # (Auto) 0.05 K/uL (0-0.50) 09/11/22 19:13 Baso # (Auto) 0.04 K/uL (0-0.2) 09/11/22 19:13 Immature Gran # (Auto) 0.05 K/uL (0.01-0.20) 09/11/22 19:13 PT 11.1 Seconds (9.0-12.0) 09/11/22 19:13 INR 1.0 (0.9-1.1) 09/11/22 19:13 APTT 28.4 Seconds (21.0-31.0) 09/11/22 19:13 PTT Ratio 1.0 09/11/22 19:13 VBG pH 7.38 (7.36-7.41) 09/11/22 19:27 VBG pCO2 43 mmHg (38-50) 09/11/22 19: VBG pO2 35 mmHg 09/11/22 19:27 VBG HCO3 25 mmol/L 09/11/22 19:27 VBG O2 Saturation 62.4 % 09/11/22 19:27 VBG Base Excess 0 mEq/L 09/11/22 19:27 Sodium 135 mmol/L (136-145) L 09/11/22 19:13 Potassium 4.4 mmol/L (3.5-5.1) 09/11/22 19:13 Chloride 104 mmol/L (98-107) 09/11/22 19:13 Carbon Dioxide 26 mmol/L (21-32) 09/11/22 19:13 Anion Gap 5 (3-11) 09/11/22 19:13 BUN 28 mg/dl (6-23) H 09/11/22 19:13 Creatinine 1.11 mg/dl (0.6-1.4) 09/11/22 19:13 Est Cr Clr Drug Dosing Not Reportable 09/11/22 19:13 Est GFR ( Amer) 73.3 ml/min 09/11/22 19:13 Est GFR (Non-Af Amer) 63.3 ml/min 09/11/22 19:13 BUN/Creatinine Ratio 25.2 (10-20) H 09/11/22 19:13 Glucose 204 mg/dl (70-99(Fasting)) H 09/11/22 19:13 Calcium 8.9 mg/dl (8.6-10.3) 09/11/22 19:13 Magnesium 2.1 mg/dl (1.7-2.4) 09/11/22 19:13 Troponin I High Sens 34.8 pg/ml (0-20) H 09/11/22 19:13 Lipase 20 U/L (11-82) 09/11/22 19:13 TSH 12.593 uIu/ml (0.300-4.500) H 09/11/22 Unknown Free T4 0.93 ng/dl (0.61-1.60) 09/11/22 Unknown [place] < 0.1 mmol/L (0.6-1.2) L 09/11/22 19:13 SARS-CoV-2 (PCR) NEGATIVE (Negative) 09/11/22 Unknown Influenza Type A (PCR) Negative (Neg) 09/11/22 Unknown Influenza Type B (PCR) Negative (Neg) 09/11/22 Unknown RSV (RT-PCR) Negative (Neg) 09/11/22 Unknown Impressions Chest X-Ray 09/11/22 19:03 XR chest 1V portable HISTORY: Chest pain, nonspecific COMPARISON: Chest 04/10/2022. FINDINGS: The lungs are clear. Cardiac silhouette is normal in size. No pleural effusions. No pneumothorax. The lungs remain hyperexpanded. IMPRESSION: No significant change compared to the prior study. No acute process. ACT 112: Negative or not required by law. Electronically signed by: Charly Woods M.D. 09/11/2022 8:[address] 09/11/22 19:[address] DOSE: 691.05 mGy.cm HISTORY: Altered mental status. TECHNIQUE: Multiaxial CT images of the head were performed without the use of intravenous contrast. Automated exposure control was utilized for this study. A dose lowering technique was utilized adhering to the principles of ALARA. Comparison: None. Findings: Mild mucosal thickening within the left maxillary sinus. The mastoid air cells are clear. The calvarium and skull base are intact. There is no mass, hematoma, midline shift, acute infarct. White matter hypodensity is nonspecific but suggestive of microvascular ischemic change. The ventricles and sulci demonstrate mild age-related involutional changes. Bilateral basal ganglia calcifications are noted. Impression: No acute intracranial abnormality. Atrophy and microvascular ischemic changes. ACT 112: Negative or not required by law. Electronically signed by: Charly Woods M.D. 09/11/2022 8:05 PM Diagnostic Findings EKG as per my interpretation :Rate 120, A-fib, normal axis, T wave abnormality septal leads
[2022-09-11 23:59] LABS: Lyme Ab IgG w/WB Rflx Negative (Negative); Lyme Ab IgM w/WB Rflx Negative (Negative)
[2022-09-12] MEDS ORDERED: LITHIUM CARBONATE SLOW REL 300 MG TAB PO SCH (00:16)
[2022-09-12] MEDS ORDERED: ACETAMINOPHEN 325 MG TAB PO PRN (00:16)
[2022-09-12] MEDS ORDERED: OLANZapine 5 MG TABLET PO SCH (00:16)
[2022-09-12] MEDS ORDERED: NITROGLYCERIN SL 0.4 MG/TAB TAB SL PRN (00:16)
[2022-09-12] MEDS: carvediloL 3.125 MG TAB PO SCH ×2 (00:43→08:36)
[2022-09-12 03:29] LABS: Basophils # (auto) 0.03 K/uL (0-0.2); Basophils % (auto) 0.5 %; Eosinophils # (auto) 0.05 K/uL (0-0.50); Eosinophils % (auto) 0.8 %; Hematocrit (blood only) 37.9 % (42.0-52.0); Hemoglobin 12.5 g/dl (14.0-18.0); Immature Granulocytes # (auto) 0.02 K/uL (0.01-0.20); Immature Granulocytes % (auto) 0.3 %; Lymphocytes # (auto) 1.11 K/uL (1.2-3.4); Lymphocytes % (auto) 17.8 %; Mean Platelet Volume 9.5 fL (9.4-12.4); Monocytes # (auto) 0.98 K/uL (0.11-0.59); Monocytes % (auto) 15.7 %; Neutrophils # (auto) 4.05 K/uL (1.40-6.50); Neutrophils % (auto) 64.9 %; Platelet Count 260 K/uL (130-400); RDW Coefficient of Variation 13.8 % (11.5-14.5); RDW Standard Deviation 50.7 fL (36.4-46.3); Red Blood Count 3.79 M/uL (4.70-6.10); White Blood Count 6.24 K/ul (4.8-10.8)
[2022-09-12 03:38] LABS: BUN Creatinine Ratio 27.7 (10-20); Calcium 8.1 mg/dl (8.6-10.3); Creatinine Clr Calc Pharmacy 37.9 ml/min; Est GFR (African American) 82.2 ml/min; Est GFR (Non-African American) 70.9 ml/min
[2022-09-12 03:50] LABS: Partial Thromboplastin Time 28.1 Seconds (21.0-31.0)
[2022-09-12] MEDS ORDERED: LEVOTHYROXINE SODIUM 100 MCG TABLET PO SCH (06:30)
[2022-09-12] MEDS ORDERED: SODIUM CHLORIDE 0.9% 1000ML 1,000 ML IV ONE (07:42)
[2022-09-12] MEDS ORDERED: CLOPIDOGREL BISULFATE 75 MG TAB PO SCH (09:00)
[2022-09-12] MEDS ORDERED: VITAMIN B COMPLEX TAB PO SCH (09:00)
[2022-09-12] MEDS ORDERED: ATORVASTATIN 40 MG TAB PO SCH (09:00)
[2022-09-12] MEDS ORDERED: lisinopril 10 MG TAB PO SCH (09:00)
--- NOTE | 2022-09-12 12:11 | Cardiology Consultation ---
Date of Consultation September 12, 2022 Assessment & Plan (1) Elevated troponin: (2) Paroxysmal atrial fibrillation with rapid ventricular response: (3) Bipolar 1 disorder: (4) Tachycardia-bradycardia: (5) PAD (peripheral artery disease): (6) Diastolic dysfunction: Plan Patient is a 76-year-old male with medical issues as outlined including known peripheral vascular disease, paroxysmal atrial fibrillation, hypertension with diastolic dysfunction. He presents now with exacerbation of underlying bipolar disease with acute gordon referred for hospitalization after agitation. History is notable for gradual decline for several months with increasing weight loss and possible medication noncompliance Issues addressed as follows 1. Elevated troponin: Troponin elevation appears modest but flat without evidence of evolution to suggest myocardial injury. EKGs initially in atrial fibrillation with rapid response. We will repeat EKG and echocardiogram. No indications for further testing with recent negative stress testing. Goals to be resume usual medications on admission. 2. Paroxysmal atrial fibrillation/borderline tachybradycardia: Patient with spontaneous conversion to sinus rhythm since admission. Initially presented in atrial fibrillation with rapid response likely being driven by acute agitation, gordon and medication lapse. We will resume low-dose carvedilol and Eliquis. Tachybradycardia present with relatively low resting heart rates and little room to increase medical therapies. Discussed indications for pacemaker which patient adamantly declines 3. Hypertension with diastolic dysfunction. Medications resumed. Exam not consistent with any volume overload or fluid retention History of Present Illness Reason for Consultation: Elevated troponin, paroxysmal atrial for Requesting Physician: Dr. Bridges Attending Physician: Jordy Bridges MD History of Present Illness Patient is a 76-year-old male ongoing cardiac issues include 1. Paroxysmal atrial fibrillation with recurrence this admission 2. Hypertension with diastolic 3. Hyperlipidemia 4. Atherosclerotic peripheral vascular disease status post left lower leg intervention including left common iliac external iliac stenting left popliteal thrombectomy 2016 with stable vascular imaging February 2020 Patient seen and examined. Patient fair historian only. Records obtained via review of chart as well He is referred for increasing issues with mental status changes with underlying bipolar disorder with active gordon. Per report patient noncompliant with medications with increasing decline functionally. Has lost 15 to 20 pounds since "the beginning of the year". Patient referred to the ER via behavioral health/police interaction for agitated behavior. Per report patient had symptoms of chest pain though patient currently denies. On presentation he was in atrial fibrillation with rapid response with spontaneous conversion since admission. Currently denies any complaints though has noted nonreflective historian Denies fevers chills unexplained infections. Notes no bleeding difficulties. Appetites been poor as noted above with weight loss. Active about his home per patient without limitations though historical accuracy and Cardiac evaluations in the past included stress nuclear imaging in May 2022 without ischemia Allergies Allergy/AdvReac Type Severity Reaction Status Date / Time No Known Allergies Allergy Verified 09/11/22 19:42 Home Medications Medication Instructions Recorded Confirmed Type albuterol sulfate 90 mcg/actuation 2 puff inhalation Q4H PRN 04/10/22 09/11/22 History aerosol inhaler Shortness Of Breath Or Wheezing atorvastatin 40 mg tablet 40 mg PO DAILY 04/10/22 09/11/22 History clopidogrel 75 mg tablet 75 mg PO DAILY 04/10/22 09/11/22 History levothyroxine 100 mcg tablet 100 mcg PO DAILY 04/10/22 09/11/22 History lisinopril 10 mg tablet 10 mg PO DAILY 04/10/22 09/11/22 History lithium carbonate 300 mg 300 mg PO HS 04/10/22 09/11/22 History tablet,extended release apixaban 5 mg tablet (Eliquis) 5 mg PO BID #60 tabs 04/11/22 09/11/22 Rx carvedilol 3.125 mg tablet 3.125 mg PO BID #60 tabs 04/13/22 09/11/22 Rx olanzapine 5 mg tablet (Zyprexa) 5 mg PO HS 09/11/22 09/11/22 History vitamin B complex 1 tab PO DAILY 09/11/22 09/11/22 History Patient History Medical History Acute kidney injury superimposed on CKD Atrial fibrillation with rapid ventricular response Bipolar 1 disorder COPD (chronic obstructive pulmonary disease) COVID-19 Diastolic dysfunction Non-ST elevation NE (NSTEMI) PAD (peripheral artery disease) Surgical History History of intravascular stent placement L common iliac artery and left external iliac artery stenting 12/14/[address] Walker. Family History Other Cancer Diabetes Social History Smoking Status: Light tobacco smoker Tobacco Type: Cigarettes Hx Alcohol Use: No Hx Substance Use: No Preferred Language: Ethiopian Communication Ability: Effective Life Cycle Assessment Analyst Required: No Beliefs That Will Affect Care: None marital status: Current Living Situation: Spouse Other Information That Helps Us Care for You: No Feels Safe at Home: Yes Safety Concerns: Feels Safe At This Time Assistive Devices: Denture - Upper Review of Systems Review of Systems: All systems reviewed & are unremarkable except as noted in HPI & below Physical Exam Constitutional: + thin; no acute distress Eyes: PERRL, conjunctivae normal, anicteric sclerae ENMT: external ear and nose normal, oropharynx normal Neck: trachea midline, no thyromegaly Respiratory: normal respiratory effort, lungs clear to auscultation Cardiovascular: RRR, no murmur, no edema Vessels: no JVD Extremities: no edema Gastrointestinal (Abdomen): normal bowel sounds, soft, nontender, no hepatosplenomegaly Musculoskeletal: no cyanosis or clubbing, extremities motor strength 5/5 Skin: no rashes, warm and dry Results & Data Vital Signs (Past 12 Hours) Vital Signs Temp Pulse Pulse Resp BP Pulse Ox O2 Del Method 09/12/22 09:00 Room Air 09/12/22 07:54 47 L 09/12/22 00:10 36.7 C 60 22 132/67 96 Room Air Laboratory Results Laboratory Results - last 24 hr 09/11/22 09/11/22 09/11/22 19:13 19:13 19:13 WBC 9.62 RBC 4.05 L Hgb 13.2 L Hct 39.5 L MCV 97.5 MCH 32.6 MCHC 33.4 RDW Std Deviation 49.5 H RDW Coeff of Elliott 13.7 Plt Count 251 MPV 9.6 Immature Gran % (Auto) 0.5 Neut % (Auto) 80.1 Lymph % (Auto) 9.1 [place] % (Auto) 9.4 Eos % (Auto) 0.5 Baso % (Auto) 0.4 Neut # (Auto) 7.70 H Lymph # (Auto) 0.88 L [place] # (Auto) 0.90 H Eos # (Auto) 0.05 Baso # (Auto) 0.04 Immature Gran # (Auto) 0.05 PT INR APTT PTT Ratio VBG pH VBG pCO2 VBG pO2 VBG HCO3 VBG O2 Saturation VBG Base Excess Sodium 135 L Potassium 4.4 Chloride 104 Carbon Dioxide 26 Anion Gap 5 BUN 28 H Creatinine 1.11 Est Cr Clr Drug Dosing Not Reportable Est GFR ( Amer) 73.3 Est GFR (Non-Af Amer) 63.3 BUN/Creatinine Ratio 25.2 H Glucose 204 H Calcium 8.9 Magnesium 2.1 Troponin I High Sens 34.8 H Lipase 20 TSH Free T4 [place] < 0.1 L Lyme Disease IgG Ab Lyme Disease IgM Ab SARS-CoV-2 (PCR) Influenza Type A (PCR) Influenza Type B (PCR) RSV (RT-PCR) 09/11/22 09/11/22 09/11/22 19:13 19:27 22:58 WBC RBC Hgb Hct MCV MCH MCHC RDW Std Deviation RDW Coeff of Elliott Plt Count MPV Immature Gran % (Auto) Neut % (Auto) Lymph % (Auto) [place] % (Auto) Eos % (Auto) Baso % (Auto) Neut # (Auto) Lymph # (Auto) [place] # (Auto) Eos # (Auto) Baso # (Auto) Immature Gran # (Auto) PT 11.1 INR 1.0 APTT 28.4 PTT Ratio 1.0 VBG pH 7.38 VBG pCO2 43 VBG pO2 35 VBG HCO3 25 VBG O2 Saturation 62.4 VBG Base Excess 0 Sodium Potassium Chloride Carbon Dioxide Anion Gap BUN Creatinine Est Cr Clr Drug Dosing Est GFR ( Amer) Est GFR (Non-Af Amer) BUN/Creatinine Ratio Glucose Calcium Magnesium Troponin I High Sens Lipase TSH Free T4 [place] Lyme Disease IgG Ab Negative Lyme Disease IgM Ab Negative SARS-CoV-2 (PCR) Influenza Type A (PCR) Influenza Type B (PCR) RSV (RT-PCR) 09/11/22 09/11/22 09/11/22 23:00 Unknown Unknown WBC RBC Hgb Hct MCV MCH MCHC RDW Std Deviation RDW Coeff of Elliott Plt Count MPV Immature Gran % (Auto) Neut % (Auto) Lymph % (Auto) [place] % (Auto) Eos % (Auto) Baso % (Auto) Neut # (Auto) Lymph # (Auto) [place] # (Auto) Eos # (Auto) Baso # (Auto) Immature Gran # (Auto) PT INR APTT PTT Ratio VBG pH VBG pCO2 VBG pO2 VBG HCO3 VBG O2 Saturation VBG Base Excess Sodium Potassium Chloride Carbon Dioxide Anion Gap BUN Creatinine Est Cr Clr Drug Dosing Est GFR ( Amer) Est GFR (Non-Af Amer) BUN/Creatinine Ratio Glucose Calcium Magnesium Troponin I High Sens 42.5 H Lipase TSH 12.593 H Free T4 0.93 [place] Lyme Disease IgG Ab Lyme Disease IgM Ab SARS-CoV-2 (PCR) NEGATIVE Influenza Type A (PCR) Negative Influenza Type B (PCR) Negative RSV (RT-PCR) Negative 09/12/22 09/12/22 09/12/22 03:07 03:07 03:07 WBC 6.24 RBC 3.79 L Hgb 12.5 L Hct 37.9 L MCV 100.0 MCH 33.0 MCHC 33.0 RDW Std Deviation 50.7 H RDW Coeff of Elliott 13.8 Plt Count 260 MPV 9.5 Immature Gran % (Auto) 0.3 Neut % (Auto) 64.9 Lymph % (Auto) 17.8 [place] % (Auto) 15.7 Eos % (Auto) 0.8 Baso % (Auto) 0.5 Neut # (Auto) 4.05 Lymph # (Auto) 1.11 L [place] # (Auto) 0.98 H Eos # (Auto) 0.05 Baso # (Auto) 0.03 Immature Gran # (Auto) 0.02 PT INR APTT 28.1 PTT Ratio 1.0 VBG pH VBG pCO2 VBG pO2 VBG HCO3 VBG O2 Saturation VBG Base Excess Sodium 137 Potassium 4.0 Chloride 109 H Carbon Dioxide 27 Anion Gap 1 L BUN 28 H Creatinine 1.01 Est Cr Clr Drug Dosing 37.9 Est GFR ( Amer) 82.2 Est GFR (Non-Af Amer) 70.9 BUN/Creatinine Ratio 27.7 H Glucose 91 Calcium 8.1 L Magnesium Troponin I High Sens Lipase TSH Free T4 [place] Lyme Disease IgG Ab Lyme Disease IgM Ab SARS-CoV-2 (PCR) Influenza Type A (PCR) Influenza Type B (PCR) RSV (RT-PCR) 09/12/22 03:07 WBC RBC Hgb Hct MCV MCH MCHC RDW Std Deviation RDW Coeff of Elliott Plt Count MPV Immature Gran % (Auto) Neut % (Auto) Lymph % (Auto) [place] % (Auto) Eos % (Auto) Baso % (Auto) Neut # (Auto) Lymph # (Auto) [place] # (Auto) Eos # (Auto) Baso # (Auto) Immature Gran # (Auto) PT INR APTT PTT Ratio VBG pH VBG pCO2 VBG pO2 VBG HCO3 VBG O2 Saturation VBG Base Excess Sodium Potassium Chloride Carbon Dioxide Anion Gap BUN Creatinine Est Cr Clr Drug Dosing Est GFR ( Amer) Est GFR (Non-Af Amer) BUN/Creatinine Ratio Glucose Calcium Magnesium Troponin I High Sens 42.0 H Lipase TSH Free T4 [place] Lyme Disease IgG Ab Lyme Disease IgM Ab SARS-CoV-2 (PCR) Influenza Type A (PCR) Influenza Type B (PCR) RSV (RT-PCR) Diagnostic Findings Stress nuclear imaging 06/04/2022 Lexiscan nuclear cardiac stress test negative for ischemia. Post stress perfusion is normal. Gated SPECT images reveals normal myocardial thickening and wall motion. The LV ejection fraction is calculated at >75%. Raw images show GI attenuation. Paroxysmal atrial fibrillation and rapid ventricular response with spontaneous conversion to sinus rhythm recorded at rest prior to Lexiscan injection.
--- NOTE | 2022-09-12 12:14 | Psychiatric Consultation ---
Date of Consultation September 12, 2022 Impression / Recommendations Impression 76 yo male with a history of bipolar disorder, no admissions per available [facility] records, family history concerning for recent manic behavior though timing is not clear and he does not appear manic on exam as no irritability, pressured speech or psychomotor restlessness. Monitor MSE here, can't exclude sundowning. (1) Bipolar 1 disorder: Plan liaison left message for to obtain more history and timeline of symptoms. lithium level for am so appropriate trough once family confirms degree of compliance will likely recommend increase in Zyprexa to 10 mg hs f/u after hospital with [facility] psychiatry--will have patient sign MAYRA to confirm appointment. Dr. Bridges updated Psych History Identifying Data 76 yo male with a history of bipolar disorder admit for CP. Consult is for suboptimal control of bipolar disorder. Chief Complaint "I'm feeling better, I'm excited to get back to work." History of Present Illness Patient was felt by admiting hospitalist to have a transient encephalopathy, presumably secondary to dehydration. There is concern by family history for an increase in agitation and paranoia. Per Dr. Cruz: Patient family worried about patient's bipolar disorder in the last few months. Patient with episodic psychosis, out of his mind and barely sleeping as per family. Verbally abusive to and paranoid. Police had to be called to patient's home because of patient's uncontrolled behavior. Concerns about medication compliance as per family. Patient denies suicidality. Patient seen by [facility] psychiatry provider last month for follow-up evaluation of bipolar disorder. Patient instructed to continue lithium 300 mg at bedtime. Patient nightly Abilify switched to Zyprexa. Of note his lithium level was undetectable but it was a supertrough so may not indicate noncompliance. He is a previous patient of Dr. Wall, current follows with [facility]. He reported taking his medications as prescribed/laid out by his and daughter (couple lives with daughter). He minimized any outbursts at home and the timing of them is not clear. Allergies Allergy/AdvReac Type Severity Reaction Status Date / Time No Known Allergies Allergy Verified 09/11/22 19:42 Home Medications Medication Instructions Recorded Confirmed Type albuterol sulfate 90 mcg/actuation 2 puff inhalation Q4H PRN 04/10/22 09/11/22 History aerosol inhaler Shortness Of Breath Or Wheezing atorvastatin 40 mg tablet 40 mg PO DAILY 04/10/22 09/11/22 History clopidogrel 75 mg tablet 75 mg PO DAILY 04/10/22 09/11/22 History levothyroxine 100 mcg tablet 100 mcg PO DAILY 04/10/22 09/11/22 History lisinopril 10 mg tablet 10 mg PO DAILY 04/10/22 09/11/22 History lithium carbonate 300 mg 300 mg PO HS 04/10/22 09/11/22 History tablet,extended release apixaban 5 mg tablet (Eliquis) 5 mg PO BID #60 tabs 04/11/22 09/11/22 Rx carvedilol 3.125 mg tablet 3.125 mg PO BID #60 tabs 04/13/22 09/11/22 Rx olanzapine 5 mg tablet (Zyprexa) 5 mg PO HS 09/11/22 09/11/22 History vitamin B complex 1 tab PO DAILY 09/11/22 09/11/22 History Patient History Medical History Acute kidney injury superimposed on CKD Atrial fibrillation with rapid ventricular response Bipolar 1 disorder COPD (chronic obstructive pulmonary disease) COVID-19 Diastolic dysfunction Non-ST elevation GA (NSTEMI) PAD (peripheral artery disease) Surgical History History of intravascular stent placement L common iliac artery and left external iliac artery stenting 12/14/[address] Walker. 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 Beliefs That Will Affect Care: None marital status: Current Living Situation: Spouse Other Information That Helps Us Care for You: No Feels Safe at Home: Yes Safety Concerns: Feels Safe At This Time Assistive Devices: Denture - Upper Physical Exam Psychiatric: Orientation: alert Apperance: appropriately groomed Eye Contact: good eye contact Motor Behavior: no abnormal motor movements Speech: normal rate/rhythm/volume of speech Affect: euthymic affect Mood: no depressed mood and no irritable mood Thought Process: + circumstantial thought process Thought Content: reality based without delusions Suicidal Thoughts: denies suicidal thoughts Homicidal Thoughts: denies homicidal thoughts Hallucinations: no auditory hallucinations and no visual hallucina tions Cognition: attention grossly intact and language grossly intact Estimated Intelligence: consistent with education level Insight: + limited insight Judgment: + limited judgement Vital Signs (Past 24 Hours): Last Vital Signs Temp 36.7 C 09/12/22 00:10 Pulse 47 L 09/12/22 07:54 Resp 22 09/12/22 00:10 BP 132/67 09/12/22 00:10 Pulse Ox 96 09/12/22 00:10 O2 Del Method Room Air 09/12/22 09:00 Review of Systems All systems reviewed & are unremarkable except as noted in HPI & below Results & Data (PSY) Laboratory Results 09/12/22 09/12/22 09/12/22 Range/Units 03:07 03:07 03:07 WBC (4.8-10.8) K/ul RBC (4.70-6.10) M/uL Hgb (14.0-18.0) g/dl Hct (42.0-52.0) % MCV (80.0-100.0) fL MCH (25.0-34.0) pg MCHC (32.0-36.0) g/dL RDW Std Deviation (36.4-46.3) fL RDW Coeff of Elliott (11.5-14.5) % Plt Count (130-400) K/uL MPV (9.4-12.4) fL Immature Gran % (Auto) % Neut % (Auto) % Lymph % (Auto) % [place] % (Auto) % Eos % (Auto) % Baso % (Auto) % Neut # (Auto) (1.40-6.50) K/uL Lymph # (Auto) (1.2-3.4) K/uL [place] # (Auto) (0.11-0.59) K/uL Eos # (Auto) (0-0.50) K/uL Baso # (Auto) (0-0.2) K/uL Immature Gran # (Auto) (0.01-0.20) K/uL PT (9.0-12.0) Seconds INR (0.9-1.1) APTT 28.1 (21.0-31.0) Seconds PTT Ratio 1.0 VBG pH (7.36-7.41) VBG pCO2 (38-50) mmHg VBG pO2 mmHg VBG HCO3 mmol/L VBG O2 Saturation % VBG Base Excess mEq/L Sodium 137 (136-145) mmol/L Potassium 4.0 (3.5-5.1) mmol/L Chloride 109 H (98-107) mmol/L Carbon Dioxide 27 (21-32) mmol/L Anion Gap 1 L (3-11) BUN 28 H (6-23) mg/dl Creatinine 1.01 (0.6-1.4) mg/dl Est Cr Clr Drug Dosing 37.9 Est GFR ( Amer) 82.2 ml/min Est GFR (Non-Af Amer) 70.9 ml/min BUN/Creatinine Ratio 27.7 H (10-20) Glucose 91 (70-99(Fasting)) mg/dl Calcium 8.1 L (8.6-10.3) mg/dl Magnesium (1.7-2.4) mg/dl Troponin I High Sens 42.0 H (0-20) pg/ml Lipase (11-82) U/L TSH (0.300-4.500) uIu/ml Free T4 (0.61-1.60) ng/dl [place] (0.6-1.2) mmol/L Lyme Disease IgG Ab (Negative) Lyme Disease IgM Ab (Negative) SARS-CoV-2 (PCR) (Negative) Influenza Type A (PCR) (Neg) Influenza Type B (PCR) (Neg) RSV (RT-PCR) (Neg) 09/12/22 09/11/22 09/11/22 Range/Units 03:07 Unknown Unknown WBC 6.24 (4.8-10.8) K/ul RBC 3.79 L (4.70-6.10) M/uL Hgb 12.5 L (14.0-18.0) g/dl Hct 37.9 L (42.0-52.0) % MCV 100.0 (80.0-100.0) fL MCH 33.0 (25.0-34.0) pg MCHC 33.0 (32.0-36.0) g/dL RDW Std Deviation 50.7 H (36.4-46.3) fL RDW Coeff of Elliott 13.8 (11.5-14.5) % Plt Count 260 (130-400) K/uL MPV 9.5 (9.4-12.4) fL Immature Gran % (Auto) 0.3 % Neut % (Auto) 64.9 % Lymph % (Auto) 17.8 % [place] % (Auto) 15.7 % Eos % (Auto) 0.8 % Baso % (Auto) 0.5 % Neut # (Auto) 4.05 (1.40-6.50) K/uL Lymph # (Auto) 1.11 L (1.2-3.4) K/uL [place] # (Auto) 0.98 H (0.11-0.59) K/uL Eos # (Auto) 0.05 (0-0.50) K/uL Baso # (Auto) 0.03 (0-0.2) K/uL Immature Gran # (Auto) 0.02 (0.01-0.20) K/uL PT (9.0-12.0) Seconds INR (0.9-1.1) APTT (21.0-31.0) Seconds PTT Ratio VBG pH (7.36-7.41) VBG pCO2 (38-50) mmHg VBG pO2 mmHg VBG HCO3 mmol/L VBG O2 Saturation % VBG Base Excess mEq/L Sodium (136-145) mmol/L Potassium (3.5-5.1) mmol/L Chloride (98-107) mmol/L Carbon Dioxide (21-32) mmol/L Anion Gap (3-11) BUN (6-23) mg/dl Creatinine (0.6-1.4) mg/dl Est Cr Clr Drug Dosing Est GFR ( Amer) ml/min Est GFR (Non-Af Amer) ml/min BUN/Creatinine Ratio (10-20) Glucose (70-99(Fasting)) mg/dl Calcium (8.6-10.3) mg/dl Magnesium (1.7-2.4) mg/dl Troponin I High Sens (0-20) pg/ml Lipase (11-82) U/L TSH 12.593 H (0.300-4.500) uIu/ml Free T4 0.93 (0.61-1.60) ng/dl [place] (0.6-1.2) mmol/L Lyme Disease IgG Ab (Negative) Lyme Disease IgM Ab (Negative) SARS-CoV-2 (PCR) NEGATIVE (Negative) Influenza Type A (PCR) Negative (Neg) Influenza Type B (PCR) Negative (Neg) RSV (RT-PCR) Negative (Neg) 09/11/22 09/11/22 09/11/22 Range/Units 23:00 22:58 19:27 WBC (4.8-10.8) K/ul RBC (4.70-6.10) M/uL Hgb (14.0-18.0) g/dl Hct (42.0-52.0) % MCV (80.0-100.0) fL MCH (25.0-34.0) pg MCHC (32.0-36.0) g/dL RDW Std Deviation (36.4-46.3) fL RDW Coeff of Elliott (11.5-14.5) % Plt Count (130-400) K/uL MPV (9.4-12.4) fL Immature Gran % (Auto) % Neut % (Auto) % Lymph % (Auto) % [place] % (Auto) % Eos % (Auto) % Baso % (Auto) % Neut # (Auto) (1.40-6.50) K/uL Lymph # (Auto) (1.2-3.4) K/uL [place] # (Auto) (0.11-0.59) K/uL Eos # (Auto) (0-0.50) K/uL Baso # (Auto) (0-0.2) K/uL Immature Gran # (Auto) (0.01-0.20) K/uL PT (9.0-12.0) Seconds INR (0.9-1.1) APTT (21.0-31.0) Seconds PTT Ratio VBG pH 7.38 (7.36-7.41) VBG pCO2 43 (38-50) mmHg VBG pO2 35 mmHg VBG HCO3 25 mmol/L VBG O2 Saturation 62.4 % VBG Base Excess 0 mEq/L Sodium (136-145) mmol/L Potassium (3.5-5.1) mmol/L Chloride (98-107) mmol/L Carbon Dioxide (21-32) mmol/L Anion Gap (3-11) BUN (6-23) mg/dl Creatinine (0.6-1.4) mg/dl Est Cr Clr Drug Dosing Est GFR ( Amer) ml/min Est GFR (Non-Af Amer) ml/min BUN/Creatinine Ratio (10-20) Glucose (70-99(Fasting)) mg/dl Calcium (8.6-10.3) mg/dl Magnesium (1.7-2.4) mg/dl Troponin I High Sens 42.5 H (0-20) pg/ml Lipase (11-82) U/L TSH (0.300-4.500) uIu/ml Free T4 (0.61-1.60) ng/dl [place] (0.6-1.2) mmol/L Lyme Disease IgG Ab Negative (Negative) Lyme Disease IgM Ab Negative (Negative) SARS-CoV-2 (PCR) (Negative) Influenza Type A (PCR) (Neg) Influenza Type B (PCR) (Neg) RSV (RT-PCR) (Neg) 09/11/22 09/11/22 09/11/22 Range/Units 19:13 19:13 19:13 WBC 9.62 (4.8-10.8) K/ul RBC 4.05 L (4.70-6.10) M/uL Hgb 13.2 L (14.0-18.0) g/dl Hct 39.5 L (42.0-52.0) % MCV 97.5 (80.0-100.0) fL MCH 32.6 (25.0-34.0) pg MCHC 33.4 (32.0-36.0) g/dL RDW Std Deviation 49.5 H (36.4-46.3) fL RDW Coeff of Elliott 13.7 (11.5-14.5) % Plt Count 251 (130-400) K/uL MPV 9.6 (9.4-12.4) fL Immature Gran % (Auto) 0.5 % Neut % (Auto) 80.1 % Lymph % (Auto) 9.1 % [place] % (Auto) 9.4 % Eos % (Auto) 0.5 % Baso % (Auto) 0.4 % Neut # (Auto) 7.70 H (1.40-6.50) K/uL Lymph # (Auto) 0.88 L (1.2-3.4) K/uL [place] # (Auto) 0.90 H (0.11-0.59) K/uL Eos # (Auto) 0.05 (0-0.50) K/uL Baso # (Auto) 0.04 (0-0.2) K/uL Immature Gran # (Auto) 0.05 (0.01-0.20) K/uL PT 11.1 (9.0-12.0) Seconds INR 1.0 (0.9-1.1) APTT 28.4 (21.0-31.0) Seconds PTT Ratio 1.0 VBG pH (7.36-7.41) VBG pCO2 (38-50) mmHg VBG pO2 mmHg VBG HCO3 mmol/L VBG O2 Saturation % VBG Base Excess mEq/L Sodium (136-145) mmol/L Potassium (3.5-5.1) mmol/L Chloride (98-107) mmol/L Carbon Dioxide (21-32) mmol/L Anion Gap (3-11) BUN (6-23) mg/dl Creatinine (0.6-1.4) mg/dl Est Cr Clr Drug Dosing Est GFR ( Amer) ml/min Est GFR (Non-Af Amer) ml/min BUN/Creatinine Ratio (10-20) Glucose (70-99(Fasting)) mg/dl Calcium (8.6-10.3) mg/dl Magnesium (1.7-2.4) mg/dl Troponin I High Sens (0-20) pg/ml Lipase (11-82) U/L TSH (0.300-4.500) uIu/ml Free T4 (0.61-1.60) ng/dl [place] < 0.1 L (0.6-1.2) mmol/L Lyme Disease IgG Ab (Negative) Lyme Disease IgM Ab (Negative) SARS-CoV-2 (PCR) (Negative) Influenza Type A (PCR) (Neg) Influenza Type B (PCR) (Neg) RSV (RT-PCR) (Neg) 09/11/22 Range/Units 19:13 WBC (4.8-10.8) K/ul RBC (4.70-6.10) M/uL Hgb (14.0-18.0) g/dl Hct (42.0-52.0) % MCV (80.0-100.0) fL MCH (25.0-34.0) pg MCHC (32.0-36.0) g/dL RDW Std Deviation (36.4-46.3) fL RDW Coeff of Elliott (11.5-14.5) % Plt Count (130-400) K/uL MPV (9.4-12.4) fL Immature Gran % (Auto) % Neut % (Auto) % Lymph % (Auto) % [place] % (Auto) % Eos % (Auto) % Baso % (Auto) % Neut # (Auto) (1.40-6.50) K/uL Lymph # (Auto) (1.2-3.4) K/uL [place] # (Auto) (0.11-0.59) K/uL Eos # (Auto) (0-0.50) K/uL Baso # (Auto) (0-0.2) K/uL Immature Gran # (Auto) (0.01-0.20) K/uL PT (9.0-12.0) Seconds INR (0.9-1.1) APTT (21.0-31.0) Seconds PTT Ratio VBG pH (7.36-7.41) VBG pCO2 (38-50) mmHg VBG pO2 mmHg VBG HCO3 mmol/L VBG O2 Saturation % VBG Base Excess mEq/L Sodium 135 L (136-145) mmol/L Potassium 4.4 (3.5-5.1) mmol/L Chloride 104 (98-107) mmol/L Carbon Dioxide 26 (21-32) mmol/L Anion Gap 5 (3-11) BUN 28 H (6-23) mg/dl Creatinine 1.11 (0.6-1.4) mg/dl Est Cr Clr Drug Dosing Not Reportable Est GFR ( Amer) 73.3 ml/min Est GFR (Non-Af Amer) 63.3 ml/min BUN/Creatinine Ratio 25.2 H (10-20) Glucose 204 H (70-99(Fasting)) mg/dl Calcium 8.9 (8.6-10.3) mg/dl Magnesium 2.1 (1.7-2.4) mg/dl Troponin I High Sens 34.8 H (0-20) pg/ml Lipase 20 (11-82) U/L TSH (0.300-4.500) uIu/ml Free T4 (0.61-1.60) ng/dl [place] (0.6-1.2) mmol/L Lyme Disease IgG Ab (Negative) Lyme Disease IgM Ab (Negative) SARS-CoV-2 (PCR) (Negative) Influenza Type A (PCR) (Neg) Influenza Type B (PCR) (Neg) RSV (RT-PCR) (Neg) Medications Administered Atorvastatin Calcium (Atorvastatin 40 Mg Tab) 40 mg PO DAILY MARCOS Stop: 10/12/22 08:59 Last Admin: 09/12/22 08:36 Dose: 40 mg Documented By: MALICK Carvedilol (Carvedilol 3.125 Mg Tab) 3.125 mg PO BID MARCOS Stop: 10/12/22 00:15 Last Admin: 09/12/22 08:36 Dose: Not Given Documented By: Admin: 09/12/22 00:43 Dose: 3.125 mg Documented By: BRANDON Clopidogrel Bisulfate (Clopidogrel Bisulfate 75 Mg Tab) 75 mg PO DAILY MARCOS Stop: 10/12/22 08:59 Last Admin: 09/12/22 08:36 Dose: 75 mg Documented By: MALICK Sodium Chloride (Nss 1000ml) 1,000 mls @ 80 mls/hr IV .[id number] Stop: 09/12/22 20:11 Last Admin: 09/12/22 08:36 Dose: 80 mls/hr Documented By: MALICK Levothyroxine Sodium (Levothyroxine Sodium 100 Mcg Tablet) 100 mcg PO DAILYBB MARCOS Stop: 10/12/22 06:29 Last Admin: 09/12/22 06:04 Dose: 100 mcg Documented By: BRANDON Lisinopril (Lisinopril 10 Mg Tab) 10 mg PO DAILY MARCOS Stop: 10/12/22 08:59 Last Admin: 09/12/22 08:36 Dose: 10 mg Documented By: MALICK Rockfish Carbonate (Rockfish Carbonate Slow Rel 300 Mg Tab) 300 mg PO HS MARCOS Stop: 10/12/22 00:15 Last Admin: 09/12/22 00:43 Dose: 300 mg Documented By: BRANDON Olanzapine (Olanzapine 5 Mg Tablet) 5 mg PO HS MARCOS Stop: 10/12/22 00:15 Last Admin: 09/12/22 00:43 Dose: 5 mg Documented By: BRANDON Vitamin B Complex (Vitamin B Complex Tab) 1 tab PO DAILY MARCOS Stop: 10/12/22 08:59 Last Admin: 09/12/22 08:36 Dose: 1 tab Documented By: MALICK Coding Level of Care Code 84176 [facility] Intl Hosp Care Lvl 2 Diagnoses Bipolar 1 disorder F31.9
[2022-09-12] MEDS ORDERED: OLANZapine 10 MG/2.1 ML SDV IM PRN (13:02)
--- NOTE | 2022-09-12 13:06 | Hospitalist Progress Note ---
Date of Service September 12, 2022 Assessment & Plan (1) Bipolar 1 disorder: Plan: History of bipolar disorder with questionable compliance. Brought to the hospital due to increased agitation. Family concern regarding medication compliance. On lithium and Zyprexa at home. [place] level on admission subtherapeutic Discussed with psychiatry (Dr. Javed); Zyprexa to be increased to 10 mg at bedtime after confirming degree of compliance. Continue to monitor for agitation. Will add Zyprexa 5 mg IM as needed for increased agitation. (2) Chest pain: (3) Elevated troponin: (4) Paroxysmal atrial fibrillation with rapid ventricular response: Plan: History of paroxysmal A-fib, hypertension with diastolic dysfunction. Presented with A-fib with RVR. Converted to sinus rhythm overnight. Labs reviewed elevated high-sensitivity troponin on admission with no delta difference. Discussed with cardiology; recommended to resume low-dose Coreg and Eliquis. Continue monitor on telemetry (5) Severe malnutrition: Plan: BMI of 14.9. Reports history of weight loss since last few months. Nutrition consult Plan Chronic conditions: PVD status post stent HTN,-continue home medication with lisinopril and Coreg. Monitor blood pressure hyperlipidemia, on Lipitor 40 mg COPD, stable lung status hypothyroidism, TSH elevated with normal T4; likely related with noncompliance. Continue current dose and follow-up as outpatient Hyperglycemia likely secondary to prediabetes, hemoglobin A1c of 5.28 March 2022 Time spent evaluating patient, direct bedside care, chart review, placing orders, interpretation of diagnostic studies, discussion with consultants, patient, and family members, as well as other required patient management activities is 60 minutes Please note the above document was generated using voice recognition software. It may contain grammatical, syntax or spelling errors. Any formal questions or concerns about the content, text or information contained within the body of this dictation should be directly addressed to the provider for clarification Admission and Anticipated Discharge Date Admission Date: September 11, 2022 Subjective Patient seen and examined at bedside. He is agitated; repeatedly states that he wants to go back home. Telemetry reveals sinus bradycardia. Review of Systems Review of Systems: All systems reviewed & are unremarkable except as noted in Subjective Physical Exam Physical Exam: GENERAL: Comfortable, pleasant, underweight, no respiratory distress SKIN: Pallor, warm HEENT: Pale palpebral conjunctivae, no ptosis, dry buccal mucosa NECK : Supple, no tenderness CHEST : Bilateral clear breath sound HEART : regular, no obvious murmurs ABDOMEN: no distention, nontender EXTREMITIES : No LE swelling/tenderness, no other conspicuous deformities noted NEUROLOGIC : Coherent, no facial asymmetry, no other gross focality Results & Data Results & Data Vital Signs (Past 12 Hours) Vital Signs Temp Pulse Pulse Resp BP Pulse Ox O2 Del Method 09/12/22 12:23 36.4 C L 60 16 136/70 100 Room Air 09/12/22 09:00 Room Air 09/12/22 07:54 47 L Laboratory Results Laboratory Results WBC 6.24 K/ul (4.8-10.8) 09/12/22 03:07 RBC 3.79 M/uL (4.70-6.10) L 09/12/22 03:07 Hgb 12.5 g/dl (14.0-18.0) L 09/12/22 03:07 Hct 37.9 % (42.0-52.0) L 09/12/22 03:07 MCV 100.0 fL (80.0-100.0) 09/12/22 03:07 MCH 33.0 pg (25.0-34.0) 09/12/22 03:07 MCHC 33.0 g/dL (32.0-36.0) 09/12/22 03:07 RDW Std Deviation 50.7 fL (36.4-46.3) H 09/12/22 03:07 RDW Coeff of Elliott 13.8 % (11.5-14.5) 09/12/22 03:07 Plt Count 260 K/uL (130-400) 09/12/22 03:07 MPV 9.5 fL (9.4-12.4) 09/12/22 03:07 Immature Gran % (Auto) 0.3 % 09/12/22 03:07 Neut % (Auto) 64.9 % 09/12/22 03:07 Lymph % (Auto) 17.8 % 09/12/22 03:07 [place] % (Auto) 15.7 % 09/12/22 03:07 Eos % (Auto) 0.8 % 09/12/22 03:07 Baso % (Auto) 0.5 % 09/12/22 03:07 Neut # (Auto) 4.05 K/uL (1.40-6.50) 09/12/22 03:07 Lymph # (Auto) 1.11 K/uL (1.2-3.4) L 09/12/22 03:07 [place] # (Auto) 0.98 K/uL (0.11-0.59) H 09/12/22 03:07 Eos # (Auto) 0.05 K/uL (0-0.50) 09/12/22 03:07 Baso # (Auto) 0.03 K/uL (0-0.2) 09/12/22 03:07 Immature Gran # (Auto) 0.02 K/uL (0.01-0.20) 09/12/22 03:07 PT 11.1 Seconds (9.0-12.0) 09/11/22 19:13 INR 1.0 (0.9-1.1) 09/11/22 19:13 APTT 28.1 Seconds (21.0-31.0) 09/12/22 03:07 PTT Ratio 1.0 09/12/22 03:07 VBG pH 7.38 (7.36-7.41) 09/11/22 19:27 VBG pCO2 43 mmHg (38-50) 09/11/22 19:27 VBG pO2 35 mmHg 09/11/22 19:27 VBG HCO3 25 mmol/L 09/11/22 19:27 VBG O2 Saturation 62.4 % 09/11/22 19:27 VBG Base Excess 0 mEq/L 09/11/22 19:27 Sodium 137 mmol/L (136-145) 09/12/22 03:07 Potassium 4.0 mmol/L (3.5-5.1) 09/12/22 03:07 Chloride 109 mmol/L (98-107) H 09/12/22 03:07 Carbon Dioxide 27 mmol/L (21-32) 09/12/22 03:07 Anion Gap 1 (3-11) L 09/12/22 03:07 BUN 28 mg/dl (6-23) H 09/12/22 03:07 Creatinine 1.01 mg/dl (0.6-1.4) 09/12/22 03:07 Est Cr Clr Drug Dosing 37.9 ml/min 09/12/22 03:07 Est GFR ( Amer) 82.2 ml/min 09/12/22 03:07 Est GFR (Non-Af Amer) 70.9 ml/min 09/12/22 03:07 BUN/Creatinine Ratio 27.7 (10-20) H 09/12/22 03:07 Glucose 91 mg/dl (70-99(Fasting)) 09/12/22 03:07 Calcium 8.1 mg/dl (8.6-10.3) L 09/12/22 03:07 Magnesium 2.1 mg/dl (1.7-2.4) 09/11/22 19:13 Troponin I High Sens 42.0 pg/ml (0-20) H 09/12/22 03:07 Lipase 20 U/L (11-82) 09/11/22 19:13 TSH 12.593 uIu/ml (0.300-4.500) H 09/11/22 Unknown Free T4 0.93 ng/dl (0.61-1.60) 09/11/22 Unknown [place] < 0.1 mmol/L (0.6-1.2) L 09/11/22 19:13 Lyme Disease IgG Ab Negative (Negative) 09/11/22 22:58 Lyme Disease IgM Ab Negative (Negative) 09/11/22 22:58 SARS-CoV-2 (PCR) NEGATIVE (Negative) 09/11/22 Unknown Influenza Type A (PCR) Negative (Neg) 09/11/22 Unknown Influenza Type B (PCR) Negative (Neg) 09/11/22 Unknown RSV (RT-PCR) Negative (Neg) 09/11/22 Unknown Impressions Chest X-Ray 09/11/22 19:03 XR chest 1V portable HISTORY: Chest pain, nonspecific COMPARISON: Chest 04/10/2022. FINDINGS: The lungs are clear. Cardiac silhouette is normal in size. No pleural effusions. No pneumothorax. The lungs remain hyperexpanded. IMPRESSION: No significant change compared to the prior study. No acute process. ACT 112: Negative or not required by law. Electronically signed by: Charly Woods M.D. 09/11/2022 8:[address] 09/11/22 19:[address] DOSE: 691.05 mGy.cm HISTORY: Altered mental status. TECHNIQUE: Multiaxial CT images of the head were performed without the use of intravenous contrast. Automated exposure control was utilized for this study. A dose lowering technique was utilized adhering to the principles of ALARA. Comparison: None. Findings: Mild mucosal thickening within the left maxillary sinus. The mastoid air cells are clear. The calvarium and skull base are intact. There is no mass, hematoma, midline shift, acute infarct. White matter hypodensity is nonspecific but suggestive of microvascular ischemic change. The ventricles and sulci demonstrate mild age-related involutional changes. Bilateral basal ganglia calcifications are noted. Impression: No acute intracranial abnormality. Atrophy and microvascular ischemic changes. ACT 112: Negative or not required by law. Electronically signed by: Charly Woods M.D. 09/11/2022 8:05 PM
--- NOTE | 2022-09-12 16:11 | Discharge Summary ---
Date of Service September 12, 2022 Admission HPI Per Admitting Provider History obtained from patient, family, and records. Medical history significant for chronic diastolic heart failure (EF 60 to 65%, TTE 2021 ), PAF on Eliquis, valvular heart disease (moderate MR/mild to moderate TR), pulmonary hypertension, PVD status post stent, HTN, hyperlipidemia, COPD, hypothyroidism, bipolar disorder, chronic anemia (baseline hemoglobin of 11), past tobacco abuse. Last confinement March 2022 for new onset A-fib, NSTEMI, and COVID-19 illness. Patient's discharged on low-dose Coreg and Eliquis. Outpatient pharmacologic nuclear stress test was negative. Patient family worried about patient's bipolar disorder in the last few months. Patient with episodic psychosis, out of his mind and barely sleeping as per family. Verbally abusive to and paranoid. Police had to be called to patient's home because of patient's uncontrolled behavior. Concerns about medication compliance as per family. Patient denies suicidality. Patient seen by [facility] psychiatry provider last month for follow-up evaluation of bipolar disorder. Patient instructed to continue lithium 300 mg at bedtime. Patient nightly Abilify switched to Zyprexa. Vague improvement on regimen as per family. Patient seen overwhelmed today, keeping busy with his [place]. Not eating a lot. Patient later on noted to be lethargic. Blood pressure noted to be low at home. Transient substernal pain reminiscent of confinement in March 2022. Patient denies headache or syncope. Transient feeling of being weak all over. Improved mentation after IVF administration at the ER. Medical History as above Surgical History : Lower extremity artery thrombectomy Family History : DM, mood disorder Personal/Social history : Past tobacco abuse, EtOH intake, [place] Admission Exam Per Admitting Provider GENERAL: Comfortable, pleasant, underweight, no respiratory distress SKIN: Pallor, warm HEENT: Pale palpebral conjunctivae, no ptosis, dry buccal mucosa NECK : Supple, no tenderness CHEST : Decreased breath sounds, no tenderness HEART : irregular, no obvious murmurs ABDOMEN: no distention, nontender EXTREMITIES : No LE swelling/tenderness, no other conspicuous deformities noted NEUROLOGIC : Coherent, no facial asymmetry, no other gross focality Principal Diagnosis (1) Bipolar 1 disorder (2) Chest pain: (3) Elevated troponin: (4) Paroxysmal atrial fibrillation with rapid ventricular response Discharge Exam GENERAL: Comfortable, pleasant, underweight, no respiratory distress SKIN: Pallor, warm HEENT: Pale palpebral conjunctivae, no ptosis, dry buccal mucosa NECK : Supple, no tenderness CHEST : Bilateral clear breath sound HEART : regular, no obvious murmurs ABDOMEN: no distention, nontender EXTREMITIES : No LE swelling/tenderness, no other conspicuous deformities noted NEUROLOGIC : Coherent, no facial asymmetry, no other gross focality Discharge Data Allergies Allergy/AdvReac Type Severity Reaction Status Date / Time No Known Allergies Allergy Verified 09/11/22 19:42 Consultations 09/11/22 20:51 ED Decision to Admit Stat 09/11/22 23:05 Consult Psychiatry Routine 09/12/22 02:42 Consult Cardiology Routine Ordered Studies 09/11/22 19:03 CT head/brain wo con Stat Hospital Course (1) Bipolar 1 disorder: History of bipolar disorder with questionable compliance. Brought to the hospital due to increased agitation. Family concern regarding medication compliance. On lithium and Zyprexa at home. [place] level on admission subtherapeutic Discussed with psychiatry (Dr. Javed); questionable compliance. Recommend resumption of current psych medication. (2) Chest pain: (3) Elevated troponin: (4) Paroxysmal atrial fibrillation with rapid ventricular response: History of paroxysmal A-fib, hypertension with diastolic dysfunction. Presented with A-fib with RVR. Converted to sinus rhythm overnight. Labs reviewed elevated high-sensitivity troponin on admission with no delta difference. Discussed with cardiology; recommended to resume low-dose Coreg and Eliquis. (5) Severe malnutrition: BMI of 14.9. Reports history of weight loss since last few months. Nutrition consult Plan Patient and patient's requested to be discharged. Patient was alert oriented x3; not agitated. His felt that he was back to his baseline. Patient denied any chest pain. Telemetry showed normal sinus rhythm. He was vitally stable. Importance of medication compliance reiterated. An appointment will be set up for him with PCP. Please note the above document was generated using voice recognition software. It may contain grammatical, syntax or spelling errors. Any formal questions or concerns about the content, text or information contained within the body of this dictation should be directly addressed to the provider for clarification Total Time Total Time Spent Total Time Spent (In Minutes): 40 Total Time Includes: Examination of the Patient, Discharge Planning, Medication Reconciliation, Communication With Other Providers and Other Discharge Plan Discharge Items Patient Disposition: Home - Self-Care Reason For Visit: CP Discharge Diagnosis: Bipolar 1 disorder Paroxysmal A-fib with RVR Activity: Resume your previous activity Non-emergency contact: Primary Care Provider Call non-emergency contact if: you have any medication questions and your symptoms worsen Follow-up/Referrals: Francisco Javier Vargas MD [Primary Care Provider] - Diet: Regular Addtl Attending Provider Instructions: You were admitted to the hospital with increased agitation. Psychiatry evaluated you during the hospitalization; please continue to take medication as prescribed before. You need to follow-up with psychiatry as soon as possible after discharge. Cardiology evaluated you during the hospitalization; recommended to continue on Eliquis and Coreg. An appointment will be set up for you with your primary care doctor for sometime next week. Pending Studies at Discharge: No Stand-Alone Forms: My ebookpie, Smoking Cessation Medications and DC Order Prescriptions: Continued olanzapine [Zyprexa] 5 mg Tablet 5 mg PO HS vitamin B complex Tablet 1 tab PO DAILY Rx Instructions: CUT TAB IN 1/2, TOO HARD TO SWALLOW WHOLE. atorvastatin 40 mg tablet 40 mg PO DAILY lithium carbonate 300 mg tablet extended release 300 mg PO HS clopidogrel 75 mg tablet 75 mg PO DAILY levothyroxine 100 mcg tablet 100 mcg PO DAILY lisinopril 10 mg tablet 10 mg PO DAILY albuterol sulfate 90 mcg/actuation HFA aerosol inhaler 2 puff INHALATION Q4H PRN (Reason: Shortness Of Breath Or Wheezing) Eliquis 5 mg tablet 5 mg PO BID Qty: 60 0RF carvedilol 3.125 mg Tablet 3.125 mg PO BID Qty: 60 0RF Discharge Orders: Discharge Order (Routine); Ordered 09/12/22 Ordered By: Jordy Bridges Admission Data Admit Date/Time: 09/11/22 23:03 Attending Provider: Jordy Bridges Admit Provider: Kojo Riggins Primary Care Provider: Francisco Javier Vargas Other Providers: Kojo Riggins ; Malou Quinones ; Olesya Javed ; Jj Jurado ; Leatha Ndiaye ; Timo Renee ; Sandeep Mak ; Ilan Biggs ; Ludwin Coronado ; Jj Singh ; Brunilda Newell ; Vivian Lovett ; Leatha Yoo ; Humberto Nguyen ; Mechelle Flores.
--- NOTE | 2022-09-12 16:45 | Electrocardiogram Report ---
Test Reason : Blood Pressure : / mmHG Vent. Rate : 121 BPM Atrial Rate : 097 BPM P-R Int : 000 ms QRS Dur : 082 ms QT Int : 344 ms P-R-T Axes : 000 079 083 degrees QTc Int : 488 ms Atrial fibrillation with rapid ventricular response with premature ventricular or aberrantly conducte d complexes Abnormal ECG When compared with ECG of 12-APR-2022 06:25, Previous ECG has undetermined rhythm, needs review Nonspecific T wave abnormality no longer evident in Inferior leads T wave inversion no longer evident in Anterior leads Confirmed by Omar Moralez ([id number]) on 09/12/2022 4:44:44 PM Referred By: REFERRED SELF Confirmed By:Omar Moralez
--- NOTE | 2022-09-12 16:55 | Electrocardiogram Report ---
Test Reason : Blood Pressure : / mmHG Vent. Rate : 058 BPM Atrial Rate : 058 BPM P-R Int : 080 ms QRS Dur : 076 ms QT Int : 406 ms P-R-T Axes : 076 067 075 degrees QTc Int : 398 ms Poor data quality, interpretation may be adversely affected Sinus bradycardia with short MN Otherwise normal ECG When compared with ECG of 11-SEP-2022 19:01, (unconfirmed) Sinus rhythm has replaced Atrial fibrillation Vent. rate has decreased BY 63 BPM Confirmed by Omar Moralez ([id number]) on 09/12/2022 4:55:31 PM Referred By: REFERRED SELF Confirmed By:Omar Moralez
[2022-09-12] MEDS ORDERED: APIXABAN 5 MG TABLET PO SCH (21:00)
--- NOTE | 2022-09-24 14:34 | Coding Query ---
A supporting diagnosis is required for the test/procedure performed on this patient in order for us to be reimbursed by the patient's insurance. Please provide a supporting diagnosis for the following test/procedure listed below next to the test name along with your signature. *If there is no additional diagnosis for this patient that would support the following test/procedure please document that below next to the test/procedure. Test(s)/Procedure(s) that require a supporting diagnosis: Medical Nutrition Therapy DIAGNOSIS: Severe Malnutrition Provider Signature: Amrit devkota Date: 09/27/2022_ Thank you Ani [facility] Information Management Once completed, please kindly fax back to [phone] For questions please call [phone] LEDY
== END 2022-09-12 17:39 | disposition home or self-care (01) ==
LOC: ED 18:53 → 1E 18:53